=== PATIENT | female | born 1955 | race Caucasian/White ===

== ENCOUNTER 2018-01-10 21:17 | Emergency (ER) | payer BC ==
[2018-01-10] MEDS ORDERED: MORPHINE SULFATE 4 MG/ML SYRINGE IVP STA ×2 (22:13→23:31)
[2018-01-10] MEDS ORDERED: ONDANSETRON 4 MG/2 ML VIAL IVP STA (22:14)
[2018-01-10 23:20] VITALS: BP 137/61; PULSE 65; RESP 20; TEMP 97.6
--- NOTE | 2018-01-10 23:50 | ED ---
Extremity Problem HPI - General Chief complaint: Extremity Problem,Nontraumatic Stated complaint: pain all over Time Seen by Provider: 01/10/18 22:02 Source: patient Mode of arrival: ambulatory Limitations: no limitations - History of Present Illness Initial comments: The sixth 2 years old female complaining about excruciating pain in the left leg , she had a history of disc disease she said she has some eye surgery scheduled and this is a radiculopathic pain he starts on the left lower back and radiates all the way to the lower extremity she has been dealing with this pain with the Percocets and the fentanyl patch today pain is unbearable she has a fentanyl patch and she been using Percocets she is requesting for pain meds. She denies any trauma any fall over the last 3 days she denies any bowel or bladder incontinence, degree of system is unremarkable - Related Data Home Medications Medication Instructions Recorded Confirmed Atorvastatin Calcium [Lipitor] 40 mg PO HS 10/24/17 01/10/18 Baclofen [Lioresal] 5 mg PO Q8H PRN 10/24/17 01/10/18 Estradiol [Estradiol 0.05 MG Patch] 1 patch TRANSDERM DIRECTED 10/24/1701/10 Famotidine [Pepcid] 40 mg PO BID 10/24/17 01/10/18 Furosemide [Lasix] 40 mg PO BID 10/24/17 01/10/18 Levothyroxine Sodium [Synthroid] 150 mcg PO DAILY 10/24/17 01/10/18 Lidocaine [Lidoderm 5% Patch] 1 patch TRANSDERM DAILY 10/24/17 01/10/18 Lisinopril [Prinivil] 5 mg PO DAILY 10/24/17 01/10/18 [place] Carbonate [Lithobid] 300 mg PO DAILY 10/24/17 01/10/18 Oxybutynin Xl [Ditropan Xl] 5 mg PO DAILY 10/24/17 01/10/18 Potassium Chloride [Klor-Con 10] 10 meq PO DAILY 10/24/17 01/10/18 QUEtiapine [SEROquel] 50 mg PO TID 10/24/17 01/10/18 Topiramate [Topamax] 25 mg PO TID 10/24/17 01/10/18 carBAMazepine [TEGretol] 200 mg PO TID 10/24/17 01/10/18 fentaNYL 25MCG/HR PATCH [Duragesic 1 patch TRANSDERM Q48H 10/24/17 01/10/18 25MCG/HR] metFORMIN HCL ER [Glucophage Xr] 500 mg PO BID 10/24/17 01/10/18 Gabapentin [Neurontin] 300 mg PO Q8HR 01/10/18 01/10/18 oxyCODONE-APAP 10-325MG [Percocet 1 tab PO Q8HR PRN 01/10/18 01/10/18 10-325 mg] Allergies Allergy/AdvReac Type Severity Reaction Status Date / Time iodine Allergy Unknown Verified 01/10/18 22:18 Tetracyclic Antidepressants Allergy Anaphylaxis Verified 01/10/18 22:18 aspirin AdvReac Nausea & Verified 01/10/18 22:18 Vomiting ibuprofen AdvReac Nausea & Verified 01/10/18 22:18 Vomiting & Diarrhea naproxen AdvReac Nausea & Verified 01/10/18 22:18 Vomiting & Diarrhea Review of Systems ROS Statement: Those systems with pertinent positive or pertinent negative responses have been documented in the HPI. ROS Other: All systems not noted in ROS Statement are negative. Past Medical History Past Medical History: CVA/TIA, Diabetes Mellitus, Hypertension, Thyroid Disorder Additional Past Medical History / Comment(s): back pain History of Any Multi-Drug Resistant Organisms: None Reported Past Surgical History: Appendectomy, Back Surgery, Hysterectomy, Joint Replacement Additional Past Surgical History / Comment(s): Retina , Past Psychological History: No Psychological Hx Reported Smoking Status: Former smoker Past Alcohol Use History: None Reported Past Drug Use History: None Reported General Exam - General Exam Comments Initial Comments: General: The patient is awake and alert, in severe distress leg pain is 10 over 10 Skin: Skin is warm and dry and no rashes or lesions are noted. Eye: Pupils are equal, round and reactive to light, extra-ocular movements are intact; there is normal conjunctiva bilaterally. Ears, nose, mouth and throat: There are moist mucous membranes and no oral lesions. Neck: The neck is supple, there is no tenderness or JVD. Cardiovascular: There is a regular rate and rhythm. No murmur, rub or gallop is appreciated. Respiratory: To auscultation bilateral, no wheezing no rhonchi no distress respiratory allred noticed Gastrointestinal: Soft, non-distended, non-tender abdomen without masses or organomegaly noted. There is no rebound or guarding present. Bowel sounds are unremarkable. Back: There is no tenderness to palpation in the midline. There is no obvious deformity. Musculoskeletal: no Focal pain over the lower lumbar spine , left straight leg raise is positive, deep tendon reflexes are within normal range no neurovascular compromise noticed on the left leg she was bit tender over the left calf area Neurological: CN II-XII intact, Cranial nerves III through XII are intact. There are no obvious motor or sensory deficits. Coordination appears grossly intact. Speech is normal. Psychiatric: Cooperative, appropriate mood & affect, normal judgment. Limitations: no limitations Course Vital Signs 01/10/18 01/10/18 21:51 23:20 Temperature 97.5 F L 97.6 F Pulse Rate 76 65 Respiratory 18 20 Rate Blood Pressure 127/57 137/61 O2 Sat by Pulse 97 97 Oximetry is with her and he is a bicycle taxi driver, she was giving morphine 4 mg IV Times and that took the edge off she will continue at home her Percocet and her fentanyl and she will follow with her primary care physician and our spine surgeon which she is scheduled for surgery in the future him a d-dimer is unremarkable that rules out any DVT the left leg, at term 11:48 PM she feels better and she wants to go home Medical Decision Making - Lab Data Lab Results 01/10/18 Range/Units 23:00 D-Dimer 0.56 (<0.60) mg/L FEU Disposition Clinical Impression: Radiculopathy Disposition: HOME SELF-CARE Condition: Good Instructions: Back Pain (ED) Referrals: Carlos A oGmez MD [Primary Care Provider] - 1-2 days
== END 2018-01-10 23:52 | disposition home or self-care (01) ==
LOC: EC 21:17
DX: M54.16 Radiculopathy, lumbar region (principal); E11.9 Type 2 diabetes mellitus without complications; I10 Essential (primary) hypertension; E07.9 Disorder of thyroid, unspecified; Z86.73 Personal history of transient ischemic attack (TIA), and cerebral infarction without residual deficits; Z87.891 Personal history of nicotine dependence; Z79.84 Long term (current) use of oral hypoglycemic drugs; Z79.899 Other long term (current) drug therapy; Z88.6 Allergy status to analgesic agent; Z88.5 Allergy status to narcotic agent; Z88.8 Allergy status to other drugs, medicaments and biological substances; Z98.890 Other specified postprocedural states
CPT/HCPCS: 36415; 85379; 99283; 96374; 96375; 96376; J2270; J2405

== ENCOUNTER 2018-04-02 16:36 | Inpatient (IN) | payer BC, MEDICARE ==
--- NOTE | 2018-04-02 17:02 | ED ---
Chest Pain HPI - General Chief Complaint: Chest Pain Stated Complaint: Chest pain Time Seen by Provider: 04/02/18 16:52 Source: patient, family, RN notes reviewed Mode of arrival: ambulatory Limitations: no limitations - History of Present Illness Initial Comments: This is a 62-year-old female history of 2 mini strokes history of a lens removal and retina look #left no history of heart disease who states she had the onset over last couple days with some palpitations intermittently in her chest last about 15 minutes at the time associated with some nausea. No vomiting since her episodes of including just prior to admission here. Just has some left arm numbness associated with this and some chin numbness. Also states she was bit by a tick 2 days ago on her left wrist which she pulled off and threw onto ground. She does not know what type it was. No fevers chills nausea vomiting sweats. MD Complaint: chest pain, other - Related Data Home Medications Medication Instructions Recorded Confirmed Atorvastatin Calcium [Lipitor] 40 mg PO HS 10/24/17 01/10/18 Baclofen [Lioresal] 5 mg PO Q8H PRN 10/24/17 01/10/18 Estradiol [Estradiol 0.05 MG Patch] 1 patch TRANSDERM DIRECTED 10/24/1701/10 Famotidine [Pepcid] 40 mg PO BID 10/24/17 01/10/18 Furosemide [Lasix] 40 mg PO BID 10/24/17 01/10/18 Levothyroxine Sodium [Synthroid] 150 mcg PO DAILY 10/24/17 01/10/18 Lidocaine [Lidoderm 5% Patch] 1 patch TRANSDERM DAILY 10/24/17 01/10/18 Lisinopril [Prinivil] 5 mg PO DAILY 10/24/17 01/10/18 [place] Carbonate [Lithobid] 300 mg PO DAILY 10/24/17 01/10/18 Oxybutynin Xl [Ditropan Xl] 5 mg PO DAILY 10/24/17 01/10/18 Potassium Chloride [Klor-Con 10] 10 meq PO DAILY 10/24/17 01/10/18 QUEtiapine [SEROquel] 50 mg PO TID 10/24/17 01/10/18 Topiramate [Topamax] 25 mg PO TID 10/24/17 01/10/18 carBAMazepine [TEGretol] 200 mg PO TID 10/24/17 01/10/18 fentaNYL 25MCG/HR PATCH [Duragesic 1 patch TRANSDERM Q48H 10/24/17 01/10/18 25MCG/HR] metFORMIN HCL ER [Glucophage Xr] 500 mg PO BID 10/24/17 01/10/18 Gabapentin [Neurontin] 300 mg PO Q8HR 01/10/18 01/10/18 oxyCODONE-APAP 10-325MG [Percocet 1 tab PO Q8HR PRN 01/10/18 01/10/18 10-325 mg] Allergies Allergy/AdvReac Type Severity Reaction Status Date / Time iodine Allergy Unknown Verified 04/02/18 16:40 Tetracyclic Antidepressants Allergy Anaphylaxis Verified 04/02/18 16:40 aspirin AdvReac Nausea & Verified 04/02/18 16:40 Vomiting ibuprofen AdvReac Nausea & Verified 04/02/18 16:40 Vomiting & Diarrhea naproxen AdvReac Nausea & Verified 04/02/18 16:40 Vomiting & Diarrhea Review of Systems ROS Statement: Those systems with pertinent positive or pertinent negative responses have been documented in the HPI. ROS Other: All systems not noted in ROS Statement are negative. EKG Findings - EKG Results: EKG: interpreted by [facility], sinus rhythm (EKG shows normal sinus rhythm of 60 DE interval 180 QRS duration 108 QT since QTC of 420/422 evidence of left axis deviation) Past Medical History Past Medical History: CVA/TIA, Diabetes Mellitus, Hypertension, Thyroid Disorder Additional Past Medical History / Comment(s): back pain History of Any Multi-Drug Resistant Organisms: None Reported Past Surgical History: Appendectomy, Back Surgery, Hysterectomy, Joint Replacement Additional Past Surgical History / Comment(s): Retina , Past Psychological History: No Psychological Hx Reported Smoking Status: Former smoker Past Alcohol Use History: None Reported Past Drug Use History: None Reported General Exam - General Exam Comments Initial Comments: This is a well-developed well-nourished awake alert oriented 3 female Limitations: no limitations General appearance: alert, anxious Head exam: Present: atraumatic, normocephalic, normal inspection Eye exam: Present: other (The left eye is deviated to the left compared to the right also pupils was markedly dilated which is normal per family) ENT exam: Present: normal exam, mucous membranes moist Neck exam: Present: normal inspection, other. Absent: tenderness, meningismus, lymphadenopathy Respiratory exam: Present: normal lung sounds bilaterally. Absent: respiratory distress, wheezes, rales, rhonchi, stridor Cardiovascular Exam: Present: regular rate, normal rhythm, normal heart sounds. Absent: systolic murmur, diastolic murmur, rubs, gallop, clicks GI/Abdominal exam: Present: soft, normal bowel sounds. Absent: distended, tenderness, guarding, rebound, rigid, bruit, pulsatile mass, hernia Extremities exam: Present: normal inspection, full ROM, normal capillary refill. Absent: tenderness, pedal edema, joint swelling, calf tenderness Back exam: Present: normal inspection Neurological exam: Present: alert, oriented X3, CN II-XII intact Psychiatric exam: Present: normal affect, normal mood Skin exam: Present: warm, dry, intact, normal color. Absent: rash Course Vital Signs 04/02/18 04/02/18 04/02/18 16:38 18:15 18:56 Temperature 98.1 F Pulse Rate 66 57 L 60 Respiratory 20 18 18 Rate Blood Pressure 121/62 110/59 111/46 O2 Sat by Pulse 99 100 99 Oximetry 04/02/18 04/02/18 19:51 20:31 Temperature Pulse Rate 60 86 Respiratory 18 18 Rate Blood Pressure 123/70 110/51 O2 Sat by Pulse 100 99 Oximetry Chest Pain MDM - MDM I did review the imaging and report no acute findings. The patient did get some relief initially with a GI cocktail with then she started vomiting again. She still experiencing palpitations some atypical pain she will be admitted I did discuss the case with Dr. Roth. There does seem to be however a anxiety component to this presentation. Disposition Clinical Impression: Atypical chest pain, Palpitations Disposition: ADMITTED IP TO THIS [facility] Condition: Stable Referrals: Carlos A Gomez MD [Primary Care Provider] - 1-2 days
[2018-04-02 17:37] LABS: Basophils % (A) 1 %; Eosinophils # (A) 0.4 k/uL (0-0.7); Eosinophils % (A) 4 %; HCT 39.7 % (34.0-46.0); Lymphocytes # (A) 2.4 k/uL (1.0-4.8); Lymphocytes % (A) 30 %; MCHC 32.7 g/dL (31.0-37.0); MCV 91.8 fL (80.0-100.0); Mean Platelet Volume 6.5; Monocytes # (A) 0.5 k/uL (0-1.0); Monocytes % (A) 6 %; Neutrophils # (A) 4.7 k/uL (1.3-7.7); Neutrophils % (A) 57 %; Platelet Count 323 k/uL (150-450); RBC 4.32 m/uL (3.80-5.40); RDW 12.7 % (11.5-15.5); WBC 8.1 k/uL (3.8-10.6)
[2018-04-02 17:50] LABS: ALT 26 U/L (9-52); AST 24 U/L (14-36); Albumin 4.5 g/dL (3.5-5.0); Alkaline Phosphatase 110 U/L (38-126); Anion Gap 16 mmol/L; Blood Urea Nitrogen 19 mg/dL (7-17); Calcium 9.9 mg/dL (8.4-10.2); Carbon Dioxide 22 mmol/L (22-30); Chloride 105 mmol/L (98-107); Glucose 81 mg/dL (74-99); Magnesium 1.8 mg/dL (1.6-2.3); Potassium 4.3 mmol/L (3.5-5.1); Sodium 143 mmol/L (137-145); Total Bilirubin 0.3 mg/dL (0.2-1.3); Total Protein 7.3 g/dL (6.3-8.2)
[2018-04-02 17:53] LABS: Creatine Kinase 43 U/L (30-135)
[2018-04-02 18:06] LABS: Creatine Kinase MB 0.8 ng/mL (0.0-2.4); Troponin I <0.012 ng/mL (0.000-0.034)
--- NOTE | 2018-04-02 18:21 | XR ---
EXAMINATION TYPE: XR chest 2V DATE OF EXAM: 04/02/2018 COMPARISON: NONE HISTORY: Chest pain and shortness of breath TECHNIQUE: Frontal and lateral views of the chest are obtained. FINDINGS: There is no focal air space opacity, pleural effusion, or pneumothorax seen. The cardiac silhouette size is within normal limits. The osseous structures are intact. IMPRESSION: No acute cardiopulmonary process.
[2018-04-02 18:22] LABS: Partial Thromboplastin Time 23.3 sec (22.0-30.0); Prothrombin Time 9.9 sec (9.0-12.0)
[2018-04-02] MEDS ORDERED: FAMOTIDINE 20 MG/2 ML VIAL IV STA (18:49)
[2018-04-02] MEDS ORDERED: diphenhydrAMINE 50 MG/ML 1 ML VIAL IVP STA (18:49)
[2018-04-02] MEDS ORDERED: methylPREDNISolone SOD SUCCI 125 MG/2 ML VIAL IV STA (18:49)
[2018-04-02] MEDS ORDERED: MAG HYDROX/AL HYDROX/SIMETH 30 ML, HYOSCYAMINE ELIXIR 10 ML, CIMETIDINE HCL 300 MG PO STA ×3 (19:48)
--- NOTE | 2018-04-02 19:51 | CT ---
EXAMINATION TYPE: CT angio chest DATE OF EXAM: 04/02/2018 COMPARISON: None HISTORY: Patient complains of palpitations and tachycardia. CT DLP: 212 mGycm. Automated Exposure Control for Dose Reduction was Utilized. CONTRAST: CTA scan of the thorax is performed with IV Contrast, patient injected with 100 mL of Isovue 370, pul monary embolism protocol. MIP Images are created on CT scanner and reviewed. FINDINGS: LUNGS: Moderate underlying emphysematous change most prominent lung apices is present. There is super ior left lower lobe linear scarring and/or atelectasis. There is no suspicious consolidation or groun dglass opacity. No pleural effusion or pneumothorax is seen bilaterally. MEDIASTINUM: There is satisfactory enhancement of the pulmonary artery and its branches, there is no CT evidence for pulmonary embolism. There are no greater than 1 cm hilar or mediastinal lymph nodes. No cardiomegaly or pericardial effusion is seen. Coronary artery calcification is present which is noted marker for coronary artery disease. Somewhat small size thyroid gland is seen, correlate clini karolina. OTHER: Slight nodular thickening left adrenal gland axial image 140 is partially imaged. IMPRESSION: 1. No CT evidence for acute pulmonary embolism. 2. Moderate emphysematous change with superior left lower lobe linear scarring and atelectasis. No hernandez spicious acute pulmonary process clearly seen.
[2018-04-02] MEDS ORDERED: ONDANSETRON 4 MG/2 ML VIAL IVP STA (20:28)
[2018-04-02] MEDS ORDERED: HEPARIN SODIUM,PORCINE 5,000 UNIT/ML 1 ML VIAL IV ONE (21:19)
[2018-04-02] MEDS ORDERED: NITROGLYCERIN SL TABS 0.4 MG TAB SUBLINGUAL PRN (21:19)
[2018-04-02] MEDS ORDERED: HEPARIN SODIUM,PORCINE/D5W PMX 25,000 UNIT in DEXTROSE/WATER 1 500ML.BAG IV SCH (21:30)
[2018-04-02] MEDS: SODIUM CHLORIDE 0.9% 1,000 ML IV SCH (21:47)
[2018-04-02] MEDS: ESTRADIOL TRANSDERM SCH (22:08)
[2018-04-02] MEDS: BACLOFEN 10 MG TAB PO PRN (22:18)
[2018-04-02] MEDS: TOPIRAMATE 25 MG TAB PO SCH (22:19)
[2018-04-02] MEDS: oxyCODONE-APAP 10-325MG 1 EACH TAB PO PRN (22:19)
[2018-04-02] MEDS: carBAMazepine 200 MG TAB PO SCH (22:19)
[2018-04-02] MEDS: QUEtiapine 50 MG TAB PO SCH (22:19)
[2018-04-02 22:22] LABS: Carbamazepine (Tegretol) 7.4 ug/mL; Lithium 0.5 mmol/L
[2018-04-02 22:49] VITALS: BMI 27.1
[2018-04-02] MEDS: GABAPENTIN 300 MG CAP PO SCH (23:06)
[2018-04-02] MEDS: NITROGLYCERIN OINT 1 INCH/GM PACKET TOPICAL SCH (23:06)
[2018-04-03 00:33] LABS: Creatine Kinase 31 U/L (30-135)
[2018-04-03 00:45] LABS: Creatine Kinase MB 0.7 ng/mL (0.0-2.4); Troponin I <0.012 ng/mL (0.000-0.034)
[2018-04-03] MEDS: NITROGLYCERIN OINT 1 INCH/GM PACKET TOPICAL SCH ×4 (03:21→22:49)
[2018-04-03] MEDS: oxyCODONE-APAP 10-325MG 1 EACH TAB PO PRN ×3 (05:29→23:19)
[2018-04-03 06:03] LABS: Glucose,Whole Blood 122 mg/dL (75-99)
[2018-04-03] MEDS: INSULIN ASPART 100 UNIT/ML 1 ML 10 ML VIAL SQ SCH ×4 (06:06→21:23)
[2018-04-03] MEDS: BACLOFEN 10 MG TAB PO PRN ×3 (06:09→23:19)
[2018-04-03] MEDS: metFORMIN 500 MG TAB PO SCH ×2 (06:09→17:33)
[2018-04-03 06:30] LABS: Creatine Kinase 26 U/L (30-135)
[2018-04-03] MEDS ORDERED: LEVOTHYROXINE 75 MCG TAB PO SCH (06:30)
[2018-04-03 06:36] LABS: Cholesterol 149 mg/dL (<200); HDL Cholesterol 56 mg/dL (40-60); LDL Cholesterol,Calculated 69 mg/dL (0-99); Triglycerides 120 mg/dL (<150)
[2018-04-03 06:41] LABS: Creatine Kinase MB 0.5 ng/mL (0.0-2.4); Troponin I <0.012 ng/mL (0.000-0.034)
[2018-04-03] MEDS ORDERED: HEPARIN SODIUM,PORCINE 5,000 UNIT/ML 1 ML VIAL IV PRN (07:03)
[2018-04-03] MEDS: QUEtiapine 50 MG TAB PO SCH ×3 (08:14→21:30)
[2018-04-03] MEDS: GABAPENTIN 300 MG CAP PO SCH ×3 (08:14→23:19)
[2018-04-03] MEDS: ASPIRIN 325 MG TAB PO SCH (08:14)
[2018-04-03] MEDS: FAMOTIDINE 20 MG TAB PO SCH ×2 (08:14→21:30)
[2018-04-03] MEDS: POTASSIUM CHLORIDE ER 10 MEQ TAB.ER.PRT PO SCH (08:14)
[2018-04-03] MEDS: LITHIUM CARBONATE 300 MG CAP PO SCH (08:14)
[2018-04-03] MEDS: carBAMazepine 200 MG TAB PO SCH ×3 (08:14→21:29)
[2018-04-03] MEDS: TOPIRAMATE 25 MG TAB PO SCH ×3 (08:14→21:30)
[2018-04-03] MEDS: LISINOPRIL 5 MG TAB PO SCH (08:14)
[2018-04-03] MEDS: OXYBUTYNIN XL 5 MG TAB.ER.24 PO SCH (08:14)
[2018-04-03] MEDS: LIDOCAINE 5% PATCH TOPICAL SCH (08:19)
[2018-04-03] MEDS ORDERED: FUROSEMIDE 40 MG TAB PO SCH (09:00)
[2018-04-03 11:57] LABS: Glucose,Whole Blood 88 mg/dL (75-99)
[2018-04-03] MEDS: CLOPIDOGREL 75 MG TAB PO SCH (15:39)
--- NOTE | 2018-04-03 16:26 | HP ---
HISTORY AND PHYSICAL DATE OF ADMISSION: 04/02/18 PRESENTING COMPLAINT: Heart racing. HISTORY OF PRESENTING COMPLAINT: This is a pleasant 62-year-old patient of Dr. Gomez. Chronic stable medical conditions include diabetes, hypertension, hypothyroid, bipolar disorder. The patient has had previous stroke affecting her vision with no . The patient presents with a sensation as of what is running on the lower part of the sternum she describes and the sternum is pounding. This has been coming on for at least 24 hours. The patient did feel dizzy, lightheaded, break out in sweat, short of breath and decided to come in. Telemetry has been unremarkable except for some PVCs. The patient is on Lasix 40 mg twice a day with no obvious evidence of congestive heart failure. The patient is rather anxious during history giving and called the nurse several times last night to check out the lower part of the sternum, which she thought was vibrating. The patient is otherwise rather active with no chest pain related to exertion. The patient's TSH has come back to be a bit low. The patient is on Synthroid. REVIEW OF SYSTEMS: CONSTITUTIONAL: Anxious. HEENT: None. RESPIRATORY: None. CARDIOVASCULAR: As above. GASTROINTESTINAL: None. GENITOURINARY: None. MUSCULOSKELETAL: None. DERMATOLOGICAL, HEMATOLOGIC, LYMPHATICS: None. PSYCHIATRY: Anxious. NEUROLOGICAL: None. PAST HISTORY: Stroke affecting of vision, diabetes, hypertension, hypothyroid, bipolar disorder. PAST SURGICAL HISTORY: Appendectomy, back surgery, hysterectomy, right hip replacement, back surgery 03/18/18. PAST PSYCH HISTORY: Bipolar. SOCIAL HISTORY: . Smoked for about 30 years, stopped 20 years ago. No alcohol. FAMILY HISTORY: Myocardial infarction, brain aneurysm. HOME MEDICATIONS: Percocet 10 1 tablet q.8h p.r.n., Glucophage XR 500 mg b.i.d., Duragesic 25 mcg patch every 48 hours, Tegretol 200 mg p.o. t.i.d., Topamax 25 mg p.o. t.i.d., Seroquel 50 mg p.o. t.i.d., potassium 10 mEq a day, Ditropan XL 5 mg a day, [place] [employer] 300 mg p.o. daily, Prinivil 5 mg p.o. daily, Synthroid 150 mcg p.o. daily, Neurontin 300 mg p.o. q.8, Lasix 20 mg p.o. b.i.d., Pepcid 20 mg b.i.d., estradiol 0.05 mcg mg patch, Plavix 75 mg daily, baclofen 5 mg q.8h p.r.n., Lipitor 20 mg q.h.s. ALLERGIES: To IODINE, TETRACYCLINE, ASPIRIN, IBUPROFEN, NAPROXEN. A lot of these are side effects. PHYSICAL EXAMINATION: Temperature 98.1, pulse 76, respiration 20, blood pressure 120/62, pulse ox 99% on room air. GENERAL APPEARANCE: Average built, sitting up, very anxious and fidgety. EYES: Pupils equal. Conjunctivae normal. HEENT: External appearance nose and ears normal. Oral cavity normal. NECK: JVD not raised. Mass not palpable. RESPIRATORY: Effort normal, lungs fair entry. CARDIOVASCULAR: First and second sounds, no edema. ABDOMEN: Soft, nontender. Liver and spleen not palpable. LYMPHATIC: No lymph node palpable in neck or axillae. PSYCHIATRY: Alert and oriented x3, very anxious appearing. NEUROLOGICAL: Pupils equal. Cranial nerves grossly intact. Power and sensation grossly intact. INVESTIGATIONS: White count 8.1, hemoglobin 13, potassium 4.3, BUN 19, creatinine 0.72. Troponin x3 negative. TSH less than 0.015 and free T4 1.70. [employer] [place] [employer] 0.5. EKG normal sinus rhythm. Chest CTA: changes. ASSESSMENT: 1. This patient presented with episodes of fluttering sensation in the chest, heart pounding, dizzy, short of breath, lightheaded. The patient does have some PVCs that could contribute to some of her symptoms, also patient seems to be over replaced on Synthroid given the low TSH, though free T4 is normal limits. May help scaling back a bit on the dose of the same. The patient troponins are negative and has no alarming EKG findings. 2. Diabetes mellitus type 2 on oral hypoglycemic. 3. Essential hypertension. 4. Hypothyroid with some over replacement. 5. Bipolar disorder. PLAN: Will cut back on the dose of Synthroid to 125, skipping the dose of tomorrow as this is a long-acting drug. Also since the blood pressure is tending to run a bit on the lower side, will DC the EVIN inhibitor right now put on a very small dose of beta amador to control the symptoms. Cardiology in the meantime was connected. The patient also may be on the dry side. She is on 40 mg twice a day of Lasix, unclear. I will cut back on Lasix to once a day. In the meantime, we will do a 2D echo to assess LV function. Care was discussed with the patient. Questions were answered. Cardiology was consulted. Copy to Dr. Gomez. LAKHWINDER / JOSE MANUEL: [phone] /
[2018-04-03 16:55] LABS: Glucose,Whole Blood 104 mg/dL (75-99)
[2018-04-03 20:55] LABS: Glucose,Whole Blood 98 mg/dL (75-99)
[2018-04-03] MEDS: ESTRADIOL TRANSDERM SCH (21:26)
[2018-04-03] MEDS: METOPROLOL TARTRATE 12.5 MG TAB PO SCH (21:30)
[2018-04-03] MEDS: SODIUM CHLORIDE 0.9% 1,000 ML IV SCH (21:30)
[2018-04-03] MEDS: ATORVASTATIN 40 MG TAB PO SCH (21:30)
[2018-04-04] MEDS: NITROGLYCERIN OINT 1 INCH/GM PACKET TOPICAL SCH ×2 (03:20→10:56)
[2018-04-04 06:07] LABS: Glucose,Whole Blood 91 mg/dL (75-99)
[2018-04-04] MEDS: INSULIN ASPART 100 UNIT/ML 1 ML 10 ML VIAL SQ SCH ×4 (06:34→21:11)
[2018-04-04] MEDS: metFORMIN 500 MG TAB PO SCH ×2 (06:55→17:06)
[2018-04-04] MEDS: oxyCODONE-APAP 10-325MG 1 EACH TAB PO PRN ×3 (06:56→23:31)
[2018-04-04] MEDS: LIDOCAINE 5% PATCH TOPICAL SCH (07:35)
[2018-04-04] MEDS: METOPROLOL TARTRATE 12.5 MG TAB PO SCH ×2 (07:42→21:13)
[2018-04-04] MEDS: carBAMazepine 200 MG TAB PO SCH ×3 (07:42→21:13)
[2018-04-04] MEDS: ASPIRIN 325 MG TAB PO SCH (07:42)
[2018-04-04] MEDS: GABAPENTIN 300 MG CAP PO SCH ×3 (07:42→23:31)
[2018-04-04] MEDS: POTASSIUM CHLORIDE ER 10 MEQ TAB.ER.PRT PO SCH (07:42)
[2018-04-04] MEDS: QUEtiapine 50 MG TAB PO SCH ×3 (07:42→21:13)
[2018-04-04] MEDS: LITHIUM CARBONATE 300 MG CAP PO SCH (07:42)
[2018-04-04] MEDS: CLOPIDOGREL 75 MG TAB PO SCH (07:42)
[2018-04-04] MEDS: OXYBUTYNIN XL 5 MG TAB.ER.24 PO SCH (07:42)
[2018-04-04] MEDS: LISINOPRIL 5 MG TAB PO SCH (07:42)
[2018-04-04] MEDS: TOPIRAMATE 25 MG TAB PO SCH ×3 (07:42→21:13)
[2018-04-04] MEDS: FAMOTIDINE 20 MG TAB PO SCH ×2 (07:43→21:13)
[2018-04-04] MEDS ORDERED: FUROSEMIDE 40 MG TAB PO SCH (09:00)
[2018-04-04 11:35] LABS: Glucose,Whole Blood 121 mg/dL (75-99)
--- NOTE | 2018-04-04 12:20 | ECHOF ---
Referral Reason:assess lv fn MEASUREMENTS -------- HEIGHT: 170.2 cm WEIGHT: 78.5 kg BP: 126/58 RVIDd: 2.7 cm (< 3.3) IVSd: 1.2 cm (0.6 - 1.1) LVIDd: 4.1 cm (3.9 - 5.3) LVPWd: 1.1 cm (0.6 - 1.1) IVSs: 1.3 cm LVIDs: 2.7 cm LVPWs: 1.6 cm LAESV Index (A-L): 18.61 ml/m Ao Diam: 2.6 cm (2.0 - 3.7) AV Cusp: 1.7 cm (1.5 - 2.6) LA Diam: 2.9 cm (2.7 - 3.8) MV E Lewis: 0.74 m/s MV DecT: 246 ms MV A Lewis: 0.73 m/s MV E/A Ratio: 1.02 RAP: 5.00 mmHg RVSP: 46.91 mmHg FINDINGS -------- Sinus rhythm. This was a technically adequate study. The left ventricular size is normal. There is borderline concentric left ventricular hypertrophy. Overall left ventricular systolic function is normal with, an EF between 55 - 60 %. The right ventricle is normal in size and function. Normal LA size by volume 22+/-6 ml/m2. The right atrium is normal in size. The aortic valve is trileaflet, and appears structurally normal. No aortic stenosis or regurgitation. The mitral valve is normal. Mild mitral regurgitation is present. Mild tricuspid regurgitation present. There is mild pulmonary hypertension. The right ventricular systolic pressure, as measured by Doppler, is 46.91mmHg. The pulmonic valve was not well visualized. There is no pulmonic regurgitation present. The aortic root size is normal. Normal inferior vena cava with normal inspiratory collapse consistent with estimated right atrial pre ssure of 5 mmHg. There is no pericardial effusion. CONCLUSIONS -------- 1. Sinus rhythm. 2. This was a technically adequate study. 3. The left ventricular size is normal. 4. There is borderline concentric left ventricular hypertrophy. 5. Overall left ventricular systolic function is normal with, an EF between 55 - 60 %. 6. Normal LA size by volume 22+/-6 ml/m2. 7. The aortic valve is trileaflet, and appears structurally normal. No aortic stenosis or regurgitati on. 8. Mild mitral regurgitation is present. 9. Mild tricuspid regurgitation present. 10. There is mild pulmonary hypertension. 11. There is no pulmonic regurgitation present. 12. The aortic root size is normal. 13. There is no pericardial effusion. [employer]: Ry Winchester RDCS
--- NOTE | 2018-04-04 13:18 | P.CRDCN ---
History of Present Illness Consult date: 04/04/18 Requesting physician: Damaso Roth Consult reason: chest pain Chief complaint: Chest pressure, fluttering, lightheadedness History of present illness: This is a pleasant 62-year-old female with history of hypertension, diabetes, hyperlipidemia, history of detached retina in the left eye, hypothyroidism, prior TIA, she quit smoking approximately 20 years ago, who presents to the hospital with symptoms that she describes as pressure in the center of her chest with associated fluttering feeling. She states that the symptoms come and go, but when they come on she becomes quite short of breath, at times the discomfort goes up into her jaw, down her left arm, she breaks out into a sweat and becomes quite nauseous. Patient also states that recently she would be outstanding in her yard and feel lightheaded like she was going to fall forward. She follows with a stenotypist at at [facility]. Patient is quite anxious about these symptoms, states that when she is having them she feels really awful. Patient states that she recently attended a wedding out of town on Tuesday, prior to the wedding she had significant swelling in her right leg which has since resolved, these symptoms of heart fluttering and chest pressure started at the wedding, however she did not want to go to a hospital in that area, and therefore presented here for this reason. EKG on presentation here showed a normal sinus rhythm with no acute changes. Subsequent EKG showed normal sinus rhythm with no acute changes. No arrhythmias have been noted on the monitor strips. Blood pressure on arrival 120/60 with a heart rate in the 60s, 99% on room air. Blood pressure at 11:00 this morning 88/48, heart rate in the 50s, 98% on room air. CBC is normal. D- dimer 0.69. Sodium 143, potassium 4.3, BUN 19, creatinine 0.7. Troponins negative 3. BNP level 194. TSH 0.0153, T4 1 0.7 . According to the patient, she did have an episode of pressure with associated fluttering in the chest through the night last night, no evidence of any arrhythmias on the monitor. Echocardiogram with Doppler study was performed which revealed an ejection fraction of 55-60%. Past Medical History Past Medical History: CVA/TIA, Diabetes Mellitus, Hypertension, Thyroid Disorder Additional Past Medical History / Comment(s): CVA x2, back pain History of Any Multi-Drug Resistant Organisms: None Reported Past Surgical History: Appendectomy, Back Surgery, Hysterectomy, Joint Replacement Additional Past Surgical History / Comment(s): right hip replacement, Retina off left eye, back surgery 03/18/18 Past Anesthesia/Blood Transfusion Reactions: No Reported Reaction Past Psychological History: Bipolar Smoking Status: Former smoker Past Alcohol Use History: None Reported Past Drug Use History: None Reported - Past Family History Mother Family Medical History: Myocardial Infarction ([place]) Father Additional Family Medical History / Comment(s): brain aneurysm, at age 60 Medications and Allergies Home Medications Medication Instructions Recorded Confirmed Type Baclofen [Lioresal] 5 mg PO Q8H PRN 10/24/17 04/03/18 History Estradiol [Estradiol 0.05 MG Patch] 1 patch TRANSDERM DIRECTED 10/24/1704/03 History Famotidine [Pepcid] 20 mg PO BID 10/24/17 04/03/18 History Furosemide [Lasix] 20 mg PO BID 10/24/17 04/03/18 History Levothyroxine Sodium [Synthroid] 150 mcg PO DAILY 10/24/17 04/03/18 History Lisinopril [Prinivil] 5 mg PO DAILY 10/24/17 04/03/18 History [place]over Carbonate [Lithobid] 300 mg PO DAILY 10/24/17 04/03/18 History Oxybutynin Xl [Ditropan Xl] 5 mg PO DAILY 10/24/17 04/03/18 History Potassium Chloride [Klor-Con 10] 10 meq PO DAILY 10/24/17 04/03/18 History QUEtiapine [SEROquel] 50 mg PO TID 10/24/17 04/03/18 History Topiramate [Topamax] 25 mg PO TID 10/24/17 04/03/18 History carBAMazepine [TEGretol] 200 mg PO TID 10/24/17 04/03/18 History fentaNYL 25MCG/HR PATCH [Duragesic 1 patch TRANSDERM Q48H 10/24/17 04/03/18 History 25MCG/HR] metFORMIN HCL ER [Glucophage Xr] 500 mg PO BID 10/24/17 04/03/18 History Gabapentin [Neurontin] 300 mg PO Q8HR 01/10/18 04/03/18 History oxyCODONE-APAP 10-325MG [Percocet 1 tab PO Q8HR PRN 01/10/18 04/03/18 History 10-325 mg] Atorvastatin [Lipitor] 20 mg PO HS 04/03/18 04/03/18 History Clopidogrel [Plavix] 75 mg PO DAILY 04/03/18 04/03/18 History Allergies Allergy/AdvReac Type Severity Reaction Status Date / Time iodine Allergy Unknown Verified 04/02/18 22:30 Tetracyclic Antidepressants Allergy Anaphylaxis Verified 04/02/18 22:30 aspirin AdvReac Nausea & Verified 04/02/18 22:30 Vomiting ibuprofen AdvReac Nausea & Verified 04/02/18 22:30 Vomiting & Diarrhea naproxen AdvReac Nausea & Verified 04/02/18 22:30 Vomiting & Diarrhea Physical Exam Vitals: Vital Signs Temp Pulse Resp BP Pulse Ox 04/04/18 11:05 96.6 F L 57 L 18 88/49 98 04/04/18 08:00 96.4 F L 67 18 121/78 98 04/04/18 04:00 53 L 17 102/59 95 04/04/18 00:00 97.1 F L 60 17 104/56 96 04/03/18 20:00 97.3 F L 65 16 108/70 97 04/03/18 15:26 96.9 F L 72 16 114/64 98 Intake and Output 04/03/18 04/04/18 04/04/18 22:59 06:59 14:59 Intake Total 120 240 Balance 120 240 Intake: IV 0 Sodium Chloride 0.9% 1, 0 000 ml @ 20 mls/hr IV . Q24H [facility] Rx#:[id number] Oral 120 240 Other: Voiding Method Toilet Toilet # Voids 1 1 Weight 78.4 kg PHYSICAL EXAMINATION: GENERAL: This is a 62-year-old female in no apparent distress at the time of my examination. HEENT: Head is atraumatic, normocephalic. Pupils equal, round. Left eyelid drooping, loss of vision in left eye Sclera anicteric. Conjunctiva are clear. Mucous membranes of the mouth are moist. Neck is supple. There is no elevated jugular venous pressure. No carotid bruit is heard. HEART EXAMINATION: Heart S1, S2 normal. No murmur or gallop heard. CHEST EXAMINATION: Lungs are clear to auscultation and precussion. No chest wall tenderness is noted on palpation or with deep breathing. ABDOMEN: Soft, nontender. Bowel sounds are heard. No organomegaly noted. EXTREMITIES: 2+ peripheral pulses with no evidence of peripheral edema and no calf tenderness noted. NEUROLOGIC patient is awake, alert and oriented -3. . Results 04/02/18 17:28 04/02/18 17:28 Coagulation 04/03/18 Range/Units 13:57 APTT 50.7 H (22.0-30.0) sec Current Medications Generic Name Dose Route Start Last Admin Trade Name Freq PRN Reason Stop Dose Admin Aspirin 325 mg 04/03/18 09:00 04/04/18 07:42 Aspirin PO 325 mg DAILY [facility] Administration Atorvastatin Calcium 40 mg 04/03/18 21:00 04/03/18 21:30 Lipitor PO 40 mg HS [facility] Administration Baclofen 5 mg 04/02/18 21:22 04/03/18 23:19 Lioresal PO 5 mg Q8H PRN Administration Muscle Spasm Carbamazepine 200 mg 04/02/18 22:00 04/04/18 07:42 Tegretol PO 200 mg TID [facility] Administration Clopidogrel Bisulfate 75 mg 04/03/18 12:00 04/04/18 07:42 Plavix PO 75 mg DAILY [facility] Administration Famotidine 40 mg 04/03/18 09:00 04/04/18 07:43 Pepcid PO 40 mg BID [facility] Administration Fentanyl 1 patch 04/02/18 22:00 04/02/18 22:18 Duragesic 25mcg/Hr Patch TRANSDERM Not Given Q48H [facility] Furosemide 40 mg 04/04/18 09:00 04/04/18 07:42 Lasix PO 40 mg DAILY [facility] Administration Gabapentin 300 mg 04/03/18 00:00 04/04/18 07:42 Neurontin PO 300 mg Q8HR [facility] Administration Sodium Chloride 1,000 mls @ 20 mls/hr 04/02/18 21:30 04/03/18 21:30 Saline 0.9% IV Not Given .Q24H [facility] Insulin Aspart 0 unit 04/03/18 07:30 04/04/18 11:45 Novolog SQ Not Given ACHS [facility] Protocol Levothyroxine Sodium 125 mcg 04/05/18 06:30 Synthroid PO DAILY@0630 [facility] Lidocaine 1 patch 04/03/18 09:00 04/04/18 07:35 Lidoderm TOPICAL Not Given DAILY [facility] Lisinopril 5 mg 04/03/18 09:00 04/04/18 07:42 Zestril PO 5 mg DAILY [facility] Administration [place] Carbonate 300 mg 04/03/18 09:00 04/04/18 07:42 [place] Carbonate PO 300 mg DAILY [facility] Administration Metformin HCl 500 mg 04/03/18 07:30 04/04/18 06:55 Glucophage PO 500 mg BID-W/MEALS [facility] Administration Metoprolol Tartrate 12.5 mg 04/03/18 21:00 04/04/18 07:42 Lopressor PO 12.5 mg BID [facility] Administration Nitroglycerin 0.4 mg 04/02/18 21:19 Nitrostat SUBLINGUAL Q5M PRN Chest Pain Non-Formulary Medication 1 patch 04/02/18 21:30 04/03/18 21:26 Estradiol [Estradiol 0.05 Mg Patch] TRANSDERM Not Given DIRECTED [facility] Oxybutynin Chloride 5 mg 04/03/18 09:00 04/04/18 07:42 Ditropan Xl PO 5 mg DAILY [facility] Administration Oxycodone/Acetaminophen 1 each 04/02/18 21:22 04/04/18 06:56 Percocet 10-325 PO 1 each Q8HR PRN Administration Pain Potassium Chloride 10 meq 04/03/18 09:00 04/04/18 07:42 K-Dur 10 PO 10 meq DAILY [facility] Administration Quetiapine Fumarate 50 mg 04/02/18 22:00 04/04/18 07:42 Seroquel PO 50 mg TID [facility] Administration Topiramate 25 mg 04/02/18 22:00 04/04/18 07:42 Topamax PO 25 mg TID [facility] Administration Intake and Output 04/03/18 04/04/18 04/04/18 22:59 06:59 14:59 Intake Total 120 240 Balance 120 240 Intake: IV 0 Sodium Chloride 0.9% 1, 0 000 ml @ 20 mls/hr IV . Q24H [facility] Rx#:[id number] Oral 120 240 Other: Voiding Method Toilet Toilet # Voids 1 1 Weight 78.4 kg 04/02/18 17:28 04/02/18 17:28 EKG Interpretations (text) EKG shows normal sinus rhythm with no acute changes. Assessment and Plan Plan: Assessment and plan #1 Symptoms of chest heaviness with associated fluttering in the chest, diaphoresis, shortness of breath, nausea. EKG shows normal sinus rhythm. Troponins negative 3. #2 diabetes #3 hypertension #4 hypothyroidism, on Synthroid, TSH 0.015, free T4 1 0.7. # 5 history of TIA #6 history of left retinal detachment #7 symptoms of lightheadedness and near syncope with evidence of hypotension Plan An echocardiogram with Doppler study was performed which revealed an ejection fraction of 55-60%. We will obtain orthostatic blood pressure and heart rate every shift. No arrhythmias have been noted on the monitor. Consider stress testing. Further recommendations to follow. DNP note has been reviewed, I agree with a documented findings and plan of care. Patient was seen and examined.
[2018-04-04] MEDS: BACLOFEN 10 MG TAB PO PRN ×2 (15:00→23:31)
[2018-04-04 16:29] LABS: Glucose,Whole Blood 92 mg/dL (75-99)
--- NOTE | 2018-04-04 16:39 | PN ---
PROGRESS NOTE DATE OF SERVICE: 04/04/18 PRESENTING COMPLAINT: Heart racing. INTERVAL HISTORY: This patient presented with heart racing, was found to be a bit hyperthyroid. Dose of Synthroid was cut back. Also the patient's diuretics were held. 2D echo showing preserved LV function. The patient appears to be more relaxed today. Cardiology is considering a stress test. REVIEW OF SYSTEMS: Done for constitutional, cardiovascular, GI, pulmonary; relevant findings as above. CURRENT MEDICATIONS: Reviewed. EXAMINATION: On examination, temperature 96.6, pulse 67, respiratory 18, blood pressure 80/49, pulse ox 98% on room air. GENERAL APPEARANCE: Sitting up, anxious. EYES: Pupils equal. Conjunctivae normal. HEENT: External appearance of nose and ears normal. Oral cavity normal. NECK: JVD not raised. Mass not palpable. RESPIRATORY: Effort normal, lungs are fair. CARDIOVASCULAR: First and second sounds, no edema. ABDOMEN: Soft, nontender. Liver and spleen not palpable. PSYCHIATRY: Alert and oriented x3. Anxious-appearing. INVESTIGATIONS: 2D echo shows preserved LV function. The patient's Accu-Cheks are noted. ASSESSMENT: 1. The patient presents with fluttering sensation in the chest, could be from PVCs and some over replacement with Synthroid. 2. Hyperthyroidism with over replacement of dose of Synthroid that has been scaled back. 3. Hypotension probably from patient being on diuretics. Patient's EF is preserved. 4. Diabetes mellitus type 2 on oral hypoglycemic. 5. Bipolar disorder. PLAN: Will discontinue patient's Lasix, will get some fluids overnight. Cardiology is deciding about a stress test. MMODL / IJN: [id number] /
[2018-04-04] MEDS: LACTATED RINGERS 1,000 ML IV SCH ×2 (17:06→23:37)
[2018-04-04 20:55] LABS: Glucose,Whole Blood 116 mg/dL (75-99)
[2018-04-04] MEDS: ATORVASTATIN 40 MG TAB PO SCH (21:13)
[2018-04-04] MEDS: SODIUM CHLORIDE 0.9% 1,000 ML IV SCH (21:14)
[2018-04-05 06:29] LABS: Glucose,Whole Blood 99 mg/dL (75-99)
[2018-04-05] MEDS: INSULIN ASPART 100 UNIT/ML 1 ML 10 ML VIAL SQ SCH ×4 (06:29→21:16)
[2018-04-05] MEDS: ESTRADIOL TRANSDERM SCH ×2 (06:38→22:20)
[2018-04-05] MEDS: LEVOTHYROXINE 125 MCG TAB PO SCH (06:39)
[2018-04-05 07:19] LABS: Anion Gap 17 mmol/L; Blood Urea Nitrogen 22 mg/dL (7-17); Calcium 10.1 mg/dL (8.4-10.2); Carbon Dioxide 20 mmol/L (22-30); Chloride 105 mmol/L (98-107); Glucose 93 mg/dL (74-99); Magnesium 1.9 mg/dL (1.6-2.3); Potassium 4.7 mmol/L (3.5-5.1); Sodium 142 mmol/L (137-145)
[2018-04-05] MEDS ORDERED: AMINOPHYLLINE 500 MG/20 ML VIAL IV PRN (08:26)
[2018-04-05] MEDS ORDERED: REGADENOSON 0.4 MG/5 ML SYRINGE IV ONE (08:26)
[2018-04-05] MEDS: ASPIRIN 325 MG TAB PO SCH (08:29)
[2018-04-05] MEDS: carBAMazepine 200 MG TAB PO SCH ×3 (08:29→22:11)
[2018-04-05] MEDS: CLOPIDOGREL 75 MG TAB PO SCH (08:29)
[2018-04-05] MEDS: FAMOTIDINE 20 MG TAB PO SCH ×2 (08:29→22:12)
[2018-04-05] MEDS: TOPIRAMATE 25 MG TAB PO SCH ×3 (08:29→22:12)
[2018-04-05] MEDS: QUEtiapine 50 MG TAB PO SCH ×3 (08:30→22:11)
[2018-04-05] MEDS: POTASSIUM CHLORIDE ER 10 MEQ TAB.ER.PRT PO SCH (08:30)
[2018-04-05] MEDS: LITHIUM CARBONATE 300 MG CAP PO SCH (08:30)
[2018-04-05] MEDS: OXYBUTYNIN XL 5 MG TAB.ER.24 PO SCH (08:30)
[2018-04-05] MEDS: LIDOCAINE 5% PATCH TOPICAL SCH (08:35)
--- NOTE | 2018-04-05 11:44 | NM ---
EXAMINATION TYPE: NM stress lexiscan cardiolite DATE OF EXAM: 04/05/2018 COMPARISON: NONE HISTORY: Precordial chest pain and abnormal EKG TECHNIQUE: After the intravenous administration of 10.2 mCi Tc 99m Sestamibi - Cardiolite resting SP ECT images acquired 45 minutes post injection. The patient received 0.4mg Lexiscan, 24.8 mCi Tc 99m Sestamibi - Stress images obtained [address] injection FINDINGS: Review of stress and rest SPECT images demonstrates stress-induced decreased perfusion involving the cardiac apex, apical anterior and apical inferior saxena. No distinct fixed abnormality is identified. Gated analysis shows normal wall motion with an estimated left ventricular ejection fraction of 60 % . IMPRESSION: Findings compatible with stress-induced ischemia as discussed above.
[2018-04-05] MEDS ORDERED: ALPRAZolam 0.5 MG TAB PO PRN (12:48)
[2018-04-05] MEDS ORDERED: ALPRAZolam 0.25 MG TAB PO PRN (12:48)
[2018-04-05] MEDS ORDERED: SODIUM CHLORIDE 0.9% 1,000 ML in EMPTY BAG 1 BAG IV ONE (12:48)
[2018-04-05] MEDS ORDERED: ASPIRIN 325 MG TAB PO STA (12:48)
[2018-04-05] MEDS ORDERED: NITROGLYCERIN SL TABS 0.4 MG TAB SUBLINGUAL PRN (12:48)
[2018-04-05] MEDS ORDERED: ATORVASTATIN 80 MG TAB PO STA (12:51)
[2018-04-05] MEDS: metFORMIN 500 MG TAB PO SCH ×2 (12:55→18:07)
[2018-04-05] MEDS: GABAPENTIN 300 MG CAP PO SCH ×3 (12:55→23:11)
[2018-04-05 13:02] LABS: Glucose,Whole Blood 70 mg/dL (75-99)
[2018-04-05] MEDS ORDERED: MIDAZOLAM 2 MG/2 ML VIAL ONE (13:28)
[2018-04-05] MEDS ORDERED: VERAPAMIL 2.5 MG/ML 2 ML AMP ONE (13:29)
[2018-04-05] MEDS ORDERED: methylPREDNISolone SOD SUCCI 125 MG/2 ML VIAL ONE (13:29)
[2018-04-05] MEDS ORDERED: LIDOCAINE 2% INJ 20 MG/ML (20 ML MDV) ONE (13:29)
[2018-04-05] MEDS ORDERED: diphenhydrAMINE 50 MG/ML 1 ML VIAL ONE (13:29)
[2018-04-05] MEDS ORDERED: HEPARIN SODIUM 1,000 UN/ML (10ML VL) ONE ×2 (13:33→13:59)
[2018-04-05] MEDS ORDERED: diphenhydrAMINE 50 MG/ML 1 ML VIAL IVP ONE (13:49)
[2018-04-05] MEDS ORDERED: methylPREDNISolone SOD SUCCI 125 MG/2 ML VIAL IV ONE (13:49)
[2018-04-05] MEDS ORDERED: IV FLUID CONTINUATION 1,000 ML IV ONE (13:49)
[2018-04-05] MEDS: MIDAZOLAM 2 MG/2 ML VIAL IV ONE ×2 (13:55→13:58)
[2018-04-05] MEDS ORDERED: LIDOCAINE 2% INJ 20 MG/ML SQ ONE ×2 (13:58→13:59)
[2018-04-05] MEDS: VERAPAMIL SYRINGE (5 MG/10 ML) INTRACORON ONE ×2 (14:03→14:12)
[2018-04-05] MEDS ORDERED: IOPAMIDOL-370 100ML BTL INJ ONE (14:12)
[2018-04-05] MEDS: LISINOPRIL 5 MG TAB PO SCH (14:34)
[2018-04-05] MEDS: METOPROLOL TARTRATE 12.5 MG TAB PO SCH ×2 (14:34→22:11)
--- NOTE | 2018-04-05 15:06 | P.PN ---
Subjective Progress Note Date: 04/05/18 Principal diagnosis: Chest heaviness and fluttering This is a pleasant 62-year-old female with history of hypertension, diabetes, hyperlipidemia, history of detached retina in the left eye, hypothyroidism, prior TIA, she quit smoking approximately 20 years ago, who presents to the hospital with symptoms that she describes as pressure in the center of her chest with associated fluttering feeling. She states that the symptoms come and go, but when they come on she becomes quite short of breath, at times the discomfort goes up into her jaw, down her left arm, she breaks out into a sweat and becomes quite nauseous. Patient also states that recently she would be outstanding in her yard and feel lightheaded like she was going to fall forward. She follows with a regional sales manager at at [facility]. Patient is quite anxious about these symptoms, states that when she is having them she feels really awful. Patient states that she recently attended a wedding out of town on Tuesday, prior to the wedding she had significant swelling in her right leg which has since resolved, these symptoms of heart fluttering and chest pressure started at the wedding, however she did not want to go to a hospital in that area, and therefore presented here for this reason. EKG on presentation here showed a normal sinus rhythm with no acute changes. Subsequent EKG showed normal sinus rhythm with no acute changes. No arrhythmias have been noted on the monitor strips. Blood pressure on arrival 120/60 with a heart rate in the 60s, 99% on room air. Blood pressure at 11:00 this morning 88/48, heart rate in the 50s, 98% on room air. CBC is normal. D- dimer 0.69. Sodium 143, potassium 4.3, BUN 19, creatinine 0.7. Troponins negative 3. BNP level 194. TSH 0.0153, T4 1 0.7 . According to the patient, she did have an episode of pressure with associated fluttering in the chest through the night last night, no evidence of any arrhythmias on the monitor. Echocardiogram with Doppler study was performed which revealed an ejection fraction of 55-60%. 04/05/2018 Patient was seen and examined this morning, denied any chest discomfort, breathing overall is been stable, she denied any further sensations of fluttering in her chest. Patient did undergo a Lexiscan stress test, findings compatible with stress-induced ischemia and for this reason she was advised by Dr. Asa Perez to undergo cardiac catheterization today. The risks and the benefits were explained to her in detail, this will be performed this afternoon by Dr. Perez. BUN 22, creatinine 0.7. Objective - Vital Signs Vital signs: Vital Signs Temp 98 F 04/05/18 12:00 Pulse 63 04/05/18 12:00 Resp 18 04/05/18 12:00 BP 112/51 04/05/18 12:00 Pulse Ox 100 04/05/18 12:00 Intake & Output 04/04/18 04/05/18 04/05/18 18:59 06:59 18:59 Intake Total 770 250 Output Total 200 Balance 570 250 Weight 78.6 kg 78.471 kg Intake: IV 0 250 Sodium Chloride 0.9% 1, 0 000 ml @ 20 mls/hr IV . Q24H [facility] Rx#:[id number] Oral 770 Output: Urine 200 Other: Voiding Method Toilet # Voids 1 1 1 # Bowel Movements 0 0 - Exam PHYSICAL EXAMINATION: GENERAL: This is a 62-year-old female in no apparent distress at the time of my examination. HEENT: Head is atraumatic, normocephalic. Pupils equal, round. Left eyelid drooping, loss of vision in left eye Sclera anicteric. Conjunctiva are clear. Mucous membranes of the mouth are moist. Neck is supple. There is no elevated jugular venous pressure. No carotid bruit is heard. HEART EXAMINATION: Heart S1, S2 normal. No murmur or gallop heard. CHEST EXAMINATION: Lungs are clear to auscultation and precussion. No chest wall tenderness is noted on palpation or with deep breathing. ABDOMEN: Soft, nontender. Bowel sounds are heard. No organomegaly noted. EXTREMITIES: 2+ peripheral pulses with no evidence of peripheral edema and no calf tenderness noted. NEUROLOGIC patient is awake, alert and oriented -3. - Labs CBC & Chem 7: 04/02/18 17:28 04/05/18 06:33 Labs: Abnormal Lab Results - Last 24 Hours (Table) 04/04/18 04/05/18 04/05/18 Range/Units 20:54 06:33 12:30 Carbon Dioxide 20 L (22-30) mmol/L BUN 22 H (7-17) mg/dL POC Glucose (mg/dL) 116 H 70 L (75-99) mg/dL Assessment and Plan Plan: Assessment and plan #1 Symptoms of chest heaviness with associated fluttering in the chest, diaphoresis, shortness of breath, nausea. EKG shows normal sinus rhythm. Troponins negative 3. #2 diabetes #3 hypertension #4 hypothyroidism, on Synthroid, TSH 0.015, free T4 1 0.7. # 5 history of TIA #6 history of left retinal detachment #7 symptoms of lightheadedness and near syncope with evidence of hypotension Plan An echocardiogram with Doppler study was performed which revealed an ejection fraction of 55-60%. Orthostatics were obtained which came back to be negative. Stress test was performed today, findings were compatible with stress-induced ischemia and for this reason patient was advised to undergo cardiac catheterization, the risks and the benefits were explained to the patient in detail, this will be performed later today by Dr. Asa Perez. DNP note has been reviewed, I agree with a documented findings and plan of care. Patient was seen and examined.
--- NOTE | 2018-04-05 15:25 | CC ---
CARDIAC CATHETERIZATION REPORT DATE OF SERVICE: 04/05/2018. PROCEDURE: Left heart catheterization and coronary angiography. PERFORMED BY: Dr. Asa Perez. Moderate conscious sedation time was 19 minutes. The patient's oxygen saturation, hemodynamics and EKG were monitored closely. CLINICAL INFORMATION: Mrs. Yasmin Cordova is a lady who is 62 years of age with history of hypertension who has a history of previous CVA from which she recovered nicely without any significant residual motor dysfunction, came into the hospital with chest pain and palpitations and also some edema of the leg. Because of a nondescript presentation and negative enzymes, she was advised to have a stress test because of ongoing episodes of chest tightness. She had a positive D-dimer, but a CT angiography was negative for any pulmonary embolism. A Lexiscan stress test revealed ischemia and therefore she was advised coronary angiography. Risks, benefits, options and rationale were explained to the patient and . PROCEDURE NOTE: Under local anesthesia and strict aseptic precautions, a 6-[place]izen [place] introducer was placed in the right radial artery. Using Ultimate 1 catheter I performed selective coronary angiography of the left coronary artery and a JR 3.5 catheter was used for right coronary artery and same catheter was used to check LV pressures. LV gram was not performed. The sheath was taken out and TR band applied. Oxygen saturation of the fingers of the right hand was 98%. Patient received 1500 units of heparin intravenously. She tolerated the procedure well without complications. CARDIAC CATHETERIZATION FINDINGS: The left ventricular end-diastolic pressure was about 14 mmHg without gradient across aortic valve. CORONARY ANGIOGRAPHY FINDINGS: RIGHT CORONARY ARTERY: Technically dominant vessel. No significant disease, distally bifurcates into a large PDA and PLV, both of which are free of significant disease. LEFT MAIN CORONARY ARTERY: Long patent disease-free vessel that bifurcates into LAD and circumflex. LEFT ANTERIOR DESCENDING CORONARY ARTERY: Good caliber vessel extends along the anterior wall gives off septal and diagonal branches runs all the way to the apex, curves over the apex to supply the inferoapical portion. Minor irregularities. No significant disease in the LAD system. LEFT POSTERIOR CIRCUMFLEX CORONARY ARTERY: Technically a nondominant vessel, gives off a large obtuse marginal that runs laterally, bifurcates into 2 branches and runs in the AV groove giving off a left atrial circumflex and distal posterolateral branch. No significant disease in the nondominant circumflex. FINAL IMPRESSION: This patient has a normal to slightly elevated filling pressures, no significant obstructive coronary artery disease. She has a right dominant system. LV function by echo was normal. RECOMMENDATION: Findings were discussed with the patient and family. Continue medical therapy with risk factor modification is advised. The patient is currently on a statin agent and this will be continued. Patient has other issues in the form of type 2 diabetes, hypertension, recent CVA from which she has recovered nicely. She is on aspirin and Plavix. All medications will be continued. Risk factor modification advised. No intervention is necessary at this time from a cardiac standpoint. The results were discussed with the patient and and I expect she will be discharged tomorrow if she remains stable. MMODL / IJN: [id number] /
--- NOTE | 2018-04-05 15:31 | LTR ---
April 05, [address] Gomez: Thank you for the opportunity to participate in the care of Mrs. Yasmin Cordova. I am pleased to report to you that she does not have any significant obstructive CAD. She had abnormal stress test and therefore cardiac cath was performed. Thank you for your referral. Please do call for questions. Sincerely, LAKHWINDER / KARINEN: [id number] /
[2018-04-05] MEDS: oxyCODONE-APAP 10-325MG 1 EACH TAB PO PRN (16:09)
[2018-04-05 16:10] VITALS: RESP 16
--- NOTE | 2018-04-05 16:37 | EST ---
EXERCISE STRESS AGE: 62 SEX: Female. HT: 5'7" WT: 173 PROTOCOL: Lexiscan Cardiolite STAGE: DURATION OF EXERCISE: HEART RATE REST: 55 BLOOD PRESSURE REST: 133/66 MAXIMUM HEART RATE ACHIEVED: 100 MAXIMUM BLOOD PRESSURE: 131/62 85% MPHR: 134 100% MPHR: 158 METS: INDICATIONS: CLINICAL INFORMATION: Baseline rhythm is sinus mechanism, rate 55, normal axis and intervals. Normal electrocardiogram. Baseline blood pressure 133/66 mmHg. Patient received an injection of Lexiscan. Electrocardiographic monitoring revealed no evidence of diagnostic ischemic ST deviation. Cardiolite was injected per protocol. CONCLUSION: 1. Non-diagnostic electrocardiograph stress testing. 2. Nuclear images will be reported separately. MMODL / IJN: [id number] /
[2018-04-05 17:05] LABS: Glucose,Whole Blood 198 mg/dL (75-99)
[2018-04-05] MEDS: BACLOFEN 10 MG TAB PO PRN (17:34)
[2018-04-05 20:47] LABS: Glucose,Whole Blood 124 mg/dL (75-99)
[2018-04-05] MEDS: SODIUM CHLORIDE 0.9% 1,000 ML IV SCH (22:20)
[2018-04-06] MEDS: oxyCODONE-APAP 10-325MG 1 EACH TAB PO PRN (02:07)
[2018-04-06 02:11] LABS: Glucose,Whole Blood 102 mg/dL (75-99)
[2018-04-06] MEDS: metFORMIN 500 MG TAB PO SCH (05:55)
[2018-04-06 06:20] LABS: Glucose,Whole Blood 94 mg/dL (75-99)
[2018-04-06] MEDS: LEVOTHYROXINE 125 MCG TAB PO SCH (06:21)
[2018-04-06] MEDS: INSULIN ASPART 100 UNIT/ML 1 ML 10 ML VIAL SQ SCH ×2 (06:22→11:43)
[2018-04-06 07:58] LABS: Anion Gap 14 mmol/L; Blood Urea Nitrogen 18 mg/dL (7-17); Calcium 9.8 mg/dL (8.4-10.2); Carbon Dioxide 20 mmol/L (22-30); Chloride 111 mmol/L (98-107); Glucose 87 mg/dL (74-99); Potassium 4.9 mmol/L (3.5-5.1); Sodium 145 mmol/L (137-145)
--- NOTE | 2018-04-06 08:47 | PN ---
PROGRESS NOTE DATE OF SERVICE: 04/05/2018 PRESENTING COMPLAINT: Heart racing. INTERVAL HISTORY: This patient was seen by me yesterday on 04/05/2018. The patient presented with heart racing, found to be hyperthyroid and dose of Synthroid was cut back. Earlier patient did undergo a nuclear stress test that came back positive. The patient was taken for a cardiac catheterization and patient did not show any significant disease. The patient otherwise comfortable. REVIEW OF SYSTEMS: Review of systems done for constitutional, cardiovascular, GI, pulmonary; relevant findings as above. CURRENT MEDICATIONS: Current medications are reviewed. PHYSICAL EXAMINATION: On examination, temperature 97.8 pulse 63, respirations 16, blood pressure 122/60 pulse ox 97% on room air. GENERAL APPEARANCE: Lying in bed, comfortable. EYES: Pupils equal. Conjunctivae normal. HENT: External appearance of nose and ears normal. Oral cavity normal. NECK: JVD not raised. Mass not palpable. RESPIRATORY: Effort normal. Lungs are clear. CARDIOVASCULAR: First and second sounds normal. No edema. ABDOMEN: Soft, nontender. Liver and spleen not palpable. PSYCHIATRY: Alert and oriented x3. Mood and affect slightly anxious. INVESTIGATIONS: Potassium 4.7, BUN 22, creatinine 0.73. ASSESSMENT: 1. Symptomatic premature ventricular contractions. 2. Hyperthyroidism from over replacement, dose of Synthroid has been cut back. 3. Hypotension from patient being on diuretics, improved. 4. Diabetes mellitus type 2 on oral hypoglycemic. 5. Bipolar disorder. 6. Positive nuclear stress test with cardiac catheterization showing minimal disease. PLAN: Continue current medication and treatment plan. Patient will be observed overnight and hopefully can be discharged tomorrow if okay with Cardiology. MMODL / IJN: [id number] /
[2018-04-06] MEDS: GABAPENTIN 300 MG CAP PO SCH (09:00)
[2018-04-06] MEDS: carBAMazepine 200 MG TAB PO SCH (09:01)
[2018-04-06] MEDS: ASPIRIN 325 MG TAB PO SCH (09:01)
[2018-04-06] MEDS: LIDOCAINE 5% PATCH TOPICAL SCH (09:02)
[2018-04-06] MEDS: LISINOPRIL 5 MG TAB PO SCH (09:02)
[2018-04-06] MEDS: FAMOTIDINE 20 MG TAB PO SCH (09:02)
[2018-04-06] MEDS: CLOPIDOGREL 75 MG TAB PO SCH (09:02)
[2018-04-06] MEDS: METOPROLOL TARTRATE 12.5 MG TAB PO SCH (09:03)
[2018-04-06] MEDS: QUEtiapine 50 MG TAB PO SCH (09:03)
[2018-04-06] MEDS: OXYBUTYNIN XL 5 MG TAB.ER.24 PO SCH (09:03)
[2018-04-06] MEDS: TOPIRAMATE 25 MG TAB PO SCH (09:03)
[2018-04-06] MEDS: LITHIUM CARBONATE 300 MG CAP PO SCH (09:03)
[2018-04-06] MEDS: POTASSIUM CHLORIDE ER 10 MEQ TAB.ER.PRT PO SCH (09:03)
[2018-04-06 10:47] VITALS: TEMP 97.4
--- NOTE | 2018-04-06 11:08 | PN ---
PROGRESS NOTE Mrs. Cordova underwent cardiac cath performed by me yesterday from right radial approach. She is doing well. She has no obstructive CAD. Vital signs are stable. S1-S2 heard normally. Right radial cath is good. Her lungs are clear. Abdomen and lower extremities exam unchanged. Plan is to increase activity and she can be discharged today and she will follow up in the office in the next 7 to 14 days. Discharge instructions regarding activity, diet and medications were given. MMELIZABETHL / IJN: [id number] /
[2018-04-06 11:43] LABS: Glucose,Whole Blood 88 mg/dL (75-99)
[2018-04-06 13:12] VITALS: BP 105/57; PULSE 61
[2018-04-06] MEDS ORDERED: ATORVASTATIN 40 MG TAB PO SCH (21:00)
--- NOTE | 2018-04-07 06:39 | DS ---
DISCHARGE SUMMARY DATE OF ADMISSION: 04/03/18. DATE OF DISCHARGE: 04/06/18. FINAL DIAGNOSES: 1. Hyperthyroidism from over replacement with Synthroid probably causing symptomatic PVCs. 2. Hypotension from patient being on diuretics, discontinued. 3. Diabetes mellitus type 2 on oral hypoglycemic. 4. Bipolar disorder. 5. Cardiac catheterization showing minimal cardiac disease. CONSULTATION: Dr. Kane Perez. HOSPITAL COURSE: This is a 62-year-old patient presented with fluttering and racing sensation in the chest was significantly hypotensive. The patient was on Lasix 20 mg twice a day, that was discontinued. Also patient's TSH came back to be less than 0.015, hence the dose of Synthroid was cut back. The patient did undergo a stress test that was positive and cardiac catheterization showed minimal disease. The patient is doing much better. On the day of discharge, care was discussed in detail with the patient and . Questions were answered including medications. The patient is up and about, no further symptoms. The patient will have to have a TSH checked in next 4-[address] Kane Perez from cardiology. The patient's 2D echo showed preserved LV function. On examination, Lungs: Fair entry. Cardiovascular: First and second sounds normal. Discharge planning more than 35 minutes. PROCEDURE: Cardiac catheterization. DISCHARGE MEDICATIONS: 1. Baclofen 5 mg q.8h p.r.n. 2. Estradiol 0.05 patch as directed. 3. Pepcid 20 mg b.i.d. 4. Prinivil 5 mg p.o. daily. 5. Olivia 300 mg p.o. daily. 6. Ditropan XL 5 mg p.o. daily. 7. Seroquel 50 mg p.o. t.i.d. 8. Topamax 25 mg p.o. t.i.d. 9. Tegretol 200 mg t.i.d. 10.Duragesic 25 mcg patch every 48 hours. 11.Glucophage XR 500 mg p.o. b.i.d. 12.Neurontin 300 mg p.o. q.8 hours. 13.Percocet 10 one tablet q.8h p.r.n. 14.Lipitor 20 mg q.h.s. 15.Plavix 75 mg p.o. daily. 16.Synthroid 125 mcg p.o. daily, new dose. 17.Lopressor 12.5 p.o. b.i.d. Follow up with Dr. Kane Perez on 04/14/18, follow with Dr. Gomez 04/10/18. MMELIZABETHL / KARINEN: [id number] /
== END 2018-04-06 14:53 | disposition home or self-care (01) | DRG 918 ==
LOC: EC 16:36 → 6SEL 21:19 → OBSVTOIN 04-05 13:06
PROVIDERS: ADMIT Hospitalist; ATTEND Hospitalist
PROC: 4A023N7 Measurement of Cardiac Sampling and Pressure, Left Heart, Percutaneous Approach (ICD-10-PCS; principal; 2018-04-05 14:00)
PROC: B2151ZZ Fluoroscopy of Left Heart using Low Osmolar Contrast (ICD-10-PCS; principal; 2018-04-05 14:00)
PROC: B2111ZZ Fluoroscopy of Multiple Coronary Arteries using Low Osmolar Contrast (ICD-10-PCS; principal; 2018-04-05 14:00)
DX: T38.1X1A Poisoning by thyroid hormones and substitutes, accidental (unintentional), initial encounter (principal); E05.80 Other thyrotoxicosis without thyrotoxic crisis or storm; E03.9 Hypothyroidism, unspecified; E11.9 Type 2 diabetes mellitus without complications; E78.5 Hyperlipidemia, unspecified; F31.9 Bipolar disorder, unspecified; F41.9 Anxiety disorder, unspecified; I10 Essential (primary) hypertension; I49.3 Ventricular premature depolarization; W57.XXXA Bitten or stung by nonvenomous insect and other nonvenomous arthropods, initial encounter; T50.2X5A Adverse effect of carbonic-anhydrase inhibitors, benzothiadiazides and other diuretics, initial encounter; I95.2 Hypotension due to drugs; Z96.641 Presence of right artificial hip joint; Z79.02 Long term (current) use of antithrombotics/antiplatelets; Z79.82 Long term (current) use of aspirin; Z79.84 Long term (current) use of oral hypoglycemic drugs; Z79.899 Other long term (current) drug therapy; Z79.890 Hormone replacement therapy; Z82.49 Family history of ischemic heart disease and other diseases of the circulatory system; Z86.73 Personal history of transient ischemic attack (TIA), and cerebral infarction without residual deficits; Z87.891 Personal history of nicotine dependence; Z90.710 Acquired absence of both cervix and uterus; Z88.6 Allergy status to analgesic agent; Z88.1 Allergy status to other antibiotic agents; Z88.8 Allergy status to other drugs, medicaments and biological substances
CPT/HCPCS: 36415; 71046; 71275; 78452; 80048; 80053; 80061; 80156; 80178; 82550; 82553; 83735; 83880; 84439; 84443; 84484; 85025; 85379; 85610; 85730; 93005; 93017; 93306; 93458; 96374; 96375; 99285

== ENCOUNTER → 2019-03-20 | Outpatient (CLI) | payer BC, MEDICARE ==
--- NOTE | 2019-03-20 17:18 | US ---
EXAMINATION TYPE: US pelvic limited DATE OF EXAM: 03/20/2019 COMPARISON: No recent exams CLINICAL HISTORY: R10.2 pelvic and vu pain. Pt states yeast infection/ Pt states complete hysterect sohan TECHNIQUE: Transabdominal (TA). Transabdominal sonographic images of the pelvis were acquired. Date of LMP: 1984 TA pelvis shows distended bladder, no pelvic mass identified, normal appearing hysterectomy pelvis* * Bladder is anechoic. IMPRESSION: Postop change.
== END | disposition home or self-care (01) ==
LOC: RADUSWWP 16:15
PROVIDERS: ATTEND Family Medicine
DX: R10.2 Pelvic and perineal pain (principal); Z98.890 Other specified postprocedural states
CPT/HCPCS: 76857

== ENCOUNTER 2024-09-18 13:08 | Inpatient (IN) | payer BC, MEDICARE ==
--- NOTE | 2024-09-18 13:15 | ED ---
Trauma HPI - General Stated Complaint: Resp Arrest Time Seen by Provider: 09/18/24 13:09 Source: RN notes reviewed, old records reviewed Mode of arrival: EMS Limitations: altered mental status, physical limitation - History of Present Illness Initial Comments: This is a 69-year-old female to the ER for evaluation today. He is presenting today for evaluation regards to altered mental status patient found difficult to arouse and difficult to respond at home today last seen by about 6 AM, patient is on Plavix and does appear to have head injury on exam GCS of 3 patient unable to provide history History obtained from EMS MD Complaint: fall, injury, other (AMS) -: hour(s) Loss of Consciousness: unsure, unwitnessed Location: head, face Severity scale (1-10): 10 Consistency: constant Context: unsure, mechanical fall, drug ingestion Associated Symptoms: confusion, weakness, difficulty breathing, dizziness Treatments Prior to Arrival: other (0) - Related Data Home Medications Medication Instructions Recorded Confirmed Famotidine [Pepcid] 20 mg PO BID 10/24/17 09/18/24 Oxybutynin Xl [Ditropan XL] 5 mg PO DAILY 10/24/17 09/18/24 carBAMazepine [TEGretol] 200 mg PO QID 10/24/17 09/18/24 fentaNYL 25MCG/HR PATCH [Duragesic 1 patch TRANSDERM Q72H 10/24/17 09/18/24 25MCG/HR] Gabapentin [Neurontin] 300 mg PO TID 01/10/18 09/18/24 Clopidogrel [Plavix] 75 mg PO DAILY 04/03/18 09/18/24 Baclofen [Lioresal] 10 mg PO QID 09/18/24 09/18/24 Cholecalciferol [Vitamin D3 (125 125 mcg PO DAILY 09/18/24 09/18/24 Mcg = 5000 Iu)] Montelukast [Singulair] 10 mg PO DAILY 09/18/24 09/18/24 Multivitamin/Iron/Folic Acid 1 tab PO DAILY 09/18/24 09/18/24 [Centrum Complete Multivit Tab] Pantoprazole [Protonix] 40 mg PO DAILY 09/18/24 09/18/24 QUEtiapine [SEROquel] 50 mg PO QID 09/18/24 09/18/24 lisinopriL [Zestril] 10 mg PO DAILY 09/18/24 09/18/24 Previous Rx's Medication Instructions Recorded Atorvastatin [Lipitor] 80 mg PO DAILY #30 tab 09/25/24 Ipratropium-Albuterol Nebulize 3 ml INHALATION RT-QID #30 each 09/25/24 [Duoneb 0.5 mg-3 mg/3 ml Soln] Levothyroxine Sodium [Synthroid] 150 mcg PO 0630 #30 tab 09/25/24 Montelukast [Singulair] 10 mg PO DAILY #30 tab 09/25/24 QUEtiapine [SEROquel] 50 mg PO DAILY #30 tab 09/25/24 Allergies Allergy/AdvReac Type Severity Reaction Status Date / Time iodine Allergy Unknown Verified 09/18/24 16:11 Tetracyclic Antidepressants Allergy Anaphylaxis Verified 09/18/24 16:11 aspirin AdvReac Nausea & Verified 09/18/24 16:11 Vomiting ibuprofen AdvReac Nausea & Verified 09/18/24 16:11 Vomiting & Diarrhea morphine AdvReac Unknown Verified 09/20/24 17:12 naproxen AdvReac Nausea & Verified 09/18/24 16:11 Vomiting & Diarrhea Review of Systems ROS Statement: Those systems with pertinent positive or pertinent negative responses have been documented in the HPI. ROS Other: All systems not noted in ROS Statement are negative. Past Medical History Past Medical History: CVA/TIA, Diabetes Mellitus, Hypertension, Thyroid Disorder Additional Past Medical History / Comment(s): CVA x2, back pain History of Any Multi-Drug Resistant Organisms: None Reported Past Surgical History: Appendectomy, Back Surgery, Hysterectomy, Joint Replacement Additional Past Surgical History / Comment(s): right hip replacement, Retina off left eye, back surgery 03/18/18 Past Anesthesia/Blood Transfusion Reactions: No Reported Reaction Past Psychological History: Bipolar Past Alcohol Use History: None Reported Past Drug Use History: None Reported - Past Family History Mother Family Medical History: Myocardial Infarction ([place]) Father Additional Family Medical History / Comment(s): brain aneurysm, at age 60 General Exam - General Exam Comments Initial Comments: GCS 3 Minor bruising and abrasion to forehead Airways patent Trachea is midline Breath sounds equal bilaterally Patient hypoxic No other significant signs of external injury General appearance: alert, in no apparent distress Head exam: Present: normocephalic, normal inspection. Absent: atraumatic (anterior forehead hematoma and abrasion) Eye exam: Present: normal appearance, PERRL, EOMI. Absent: scleral icterus, conjunctival injection, periorbital swelling ENT exam: Present: normal exam, mucous membranes moist Neck exam: Present: normal inspection. Absent: tenderness, meningismus, lymphadenopathy Respiratory exam: Present: normal lung sounds bilaterally. Absent: respiratory distress, wheezes, rales, rhonchi, stridor Cardiovascular Exam: Present: regular rate, normal rhythm, normal heart sounds. Absent: systolic murmur, diastolic murmur, rubs, gallop, clicks GI/Abdominal exam: Present: soft, normal bowel sounds. Absent: distended, tenderness, guarding, rebound, rigid Extremities exam: Present: normal inspection, full ROM, normal capillary refill. Absent: tenderness, pedal edema, joint swelling, calf tenderness Back exam: Present: normal inspection Neurological exam: Present: alert, oriented X3, CN II-XII intact Psychiatric exam: Present: normal affect, normal mood Skin exam: Present: warm, dry, intact, normal color. Absent: rash Course Vital Signs 09/18/24 09/18/24 09/18/24 13:11 13:17 13:27 Temperature Pulse Rate 101 H 60 59 L Respiratory 20 7 L 13 Rate Blood Pressure 146/67 106/91 O2 Sat by Pulse 100 100 Oximetry Fraction of Inspired Oxygen (FIO2) 09/18/24 09/18/24 09/18/24 13:30 13:34 14:05 Temperature 97.4 F L Pulse Rate 54 L 50 L Respiratory 14 11 L Rate Blood Pressure 97/76 121/62 O2 Sat by Pulse 100 100 Oximetry Fraction of 100 Inspired Oxygen (FIO2) 09/18/24 09/18/24 09/18/24 14:20 14:45 15:00 Temperature 97.4 F L Pulse Rate 49 L 47 L 44 L Respiratory 13 16 16 Rate Blood Pressure 115/51 94/51 109/53 O2 Sat by Pulse 100 100 100 Oximetry Fraction of Inspired Oxygen (FIO2) 09/18/24 09/18/24 09/18/24 15:15 15:30 15:38 Temperature Pulse Rate 44 L 44 L Respiratory 16 16 Rate Blood Pressure 109/55 110/58 O2 Sat by Pulse 100 100 Oximetry Fraction of 50 Inspired Oxygen (FIO2) 09/18/24 09/18/24 09/18/24 15:45 15:51 15:58 Temperature Pulse Rate 45 L 46 L Respiratory 10 L Rate Blood Pressure 114/59 O2 Sat by Pulse 100 Oximetry Fraction of 50 Inspired Oxygen (FIO2) 09/18/24 09/18/24 09/18/24 16:00 16:14 16:15 Temperature 97.2 F L Pulse Rate 45 L 47 L 45 L Respiratory 12 16 Rate Blood Pressure 128/64 130/62 O2 Sat by Pulse 100 100 Oximetry Fraction of Inspired Oxygen (FIO2) 09/18/24 09/18/24 09/18/24 16:41 17:00 18:00 Temperature 97.4 F L 96.3 F L Pulse Rate 46 L 45 L Respiratory 14 16 Rate Blood Pressure 134/62 113/57 O2 Sat by Pulse 100 100 Oximetry Fraction of 50 Inspired Oxygen (FIO2) 09/18/24 09/18/24 09/18/24 18:50 20:00 20:07 Temperature 96.6 F L 94.0 F L Pulse Rate 47 L 49 L Respiratory Rate Blood Pressure O2 Sat by Pulse 100 Oximetry Fraction of 50 Inspired Oxygen (FIO2) 09/18/24 09/18/24 20:08 20:10 Temperature Pulse Rate 49 L Respiratory Rate Blood Pressure 115/55 O2 Sat by Pulse 100 Oximetry Fraction of 50 Inspired Oxygen (FIO2) - Reevaluation(s) Reevaluation #1: 09/18/24 13:14 medical record is reviewed 09/18/24 13:15 level 1 trauma paged Reevaluation #2: 09/18/24 14:47 Patient is showing no improvement here Patient intubated for low GCS with suspicion of trauma Patient initially for EMS did respond to Narcan and was found with fentanyl patch Reevaluation #3: 09/18/24 14:47 Spoke with immediately saying patient is full code, aware of patient's poor prognosis and grave condition Patient and family informed of results and questions answered Reevaluation #4: Was pt. sent in by a medical professional or institution (, PA, CONCERT SINGER, urgent care, hospital, or jail...) When possible be specific @ -no Did you speak to anyone other than the patient for history (EMS, parent, family, police, friend...)? What history was obtained from this source @ -no Did you review nursing and triage notes (agree or disagree)? Why? @ -agree Are old charts reviewed (outside hosp., previous admission, EMS record, old EKG, old radiological studies, urgent care reports/EKG's, jail records)? Report findings @ -yes Differential Diagnosis (chest pain, altered mental status, abdominal pain women, abdominal pain men, vaginal bleeding, weakness, fever, dyspnea, syncope, headache, dizziness, GI bleed, back pain, seizure, CVA, palpatations, mental health, musculoskeletal)? @ -prior EKG interpreted by me (3pts min.). @ -yes X-rays interpreted by me (1pt min.). @ -yes negative for acute disease CT interpreted by me (1pt min.). @ -Yes negative for acute disease U/S interpreted by me (1pt. min.). @ -no What testing was considered but not performed or refused? (CT, X-rays, U/S, labs)? Why? @ -none What meds were considered but not given or refused? Why? @ -none Did you discuss the management of the patient with other professionals (professionals i.e. , PA, CONCERT SINGER, lab, RT, psych nurse, vp digital marketing social media and crm, gym teacher, teacher, purchasing officer, rn case manager hospice)? Give summary @ -no Was smoking cessation discussed for >3mins.? @ -no Was critical care preformed (if so, how long)? @ -yes95 Were there social determinants of health that impacted care today? How? (Homelessness, low income, unemployed, alcoholism, drug addiction, transportation, low edu. Level, literacy, decrease access to med. care, half-way, rehab)? @ -none Was there de-escalation of care discussed even if they declined (Discuss DNR or withdrawal of care, Hospice)? DNR status @ -no What co-morbidities impacted this encounter? (DM, HTN, Smoking, COPD, CAD, Cancer, CVA, ARF, Chemo, Hep., AIDS, mental health diagnosis, sleep apnea, morbid obesity)? @ -none Was patient admitted / discharged? Hospital course, mention meds given and route, prescriptions, significant lab abnormalities, going to OR and other pertinent info. @ - 69 female who is brought in under express suspected fall on anticoagulation and a level 1 trauma, patient was intubated for airway protection with a GCS of 3, at this time patient has no significant evidence of intracranial hemorrhage or acute traumatic injury Admitted Undiagnosed new problem with uncertain prognosis? @ -no Drug Therapy requiring intensive monitoring for toxicity (Heparin, Nitro, Insulin, Cardizem)? @ -no Were any procedures done? @ -no Diagnosis/symptom? @ -respiratory failure Acute, or Chronic, or Acute on Chronic? @ -Acute Uncomplicated (without systemic symptoms) or Complicated (systemic symptoms)? @ -Complicated Side effects of treatment? @ -no Exacerbation, Progression, or Severe Exacerbation? @ -exacerbation Poses a threat to life or bodily function? How? (Chest pain, [place], [place], pneumonia, PE, COPD, DKA, ARF, appy, cholecystitis, CVA, Diverticulitis, Homicidal, Suicidal, threat to staff... and all critical care pts) @ -yes respiratory failure Reevaluation #5: Differential Altered Mental Status: Hypoglycemia, DKA, hypercapnia, ETOH, overdose, CO poisoning, trauma, myxedema coma, HTN encephalopathy, infection, encephalitis, psychosis, intercranial hemorrhage, hepatic encephalopathy, meningitis, CVA, this is not meant to be an all-inclusive list - Consultations Consultation #1: Dr. Tay level 1 trauma paged at bedside Procedures - Intubation Sedative: Versed Mg Given: 10 Paralytic: Succinylcholine Mg Given: 100 Laryngoscope: [place] Size: 4 ET Tube Size: 7.5 ET Tube Uncuffed: No Tube Secured Location: teeth Tube Placement Confirmation: visualized tube passing through cords, equal breath sounds bilaterally, no breath sounds over epigastrium, confirmation by capnometry Patient Tolerated Procedure: well Intubation Complications: none Medical Decision Making - Medical Decision Making 69 female who is brought in under express suspected fall on anticoagulation and a level 1 trauma, patient was intubated for airway protection with a GCS of 3, at this time patient has no significant evidence of intracranial hemorrhage or acute traumatic injury - Lab Data Result diagrams: 09/22/24 09:45 09/24/24 09:21 Lab Results 09/18/24 09/18/24 09/18/24 Range/Units 13:15 13:18 13:18 WBC 9.0 (3.8-10.6) k/uL RBC 4.00 (3.80-5.40) m/uL Hgb 12.1 (11.4-16.0) gm/dL Hct 36.9 (34.0-46.0) % MCV 92.3 (80.0-100.0) fL MCH 30.2 (25.0-35.0) pg MCHC 32.7 (31.0-37.0) g/dL RDW 13.0 (11.5-15.5) % Plt Count 234 (150-450) k/uL MPV 6.9 Neutrophils % 75 % Lymphocytes % 16 % Monocytes % 6 % Eosinophils % 1 % Basophils % 0 % Neutrophils # 6.8 (1.3-7.7) k/uL Lymphocytes # 1.5 (1.0-4.8) k/uL Monocytes # 0.5 (0-1.0) k/uL Eosinophils # 0.1 (0-0.7) k/uL Basophils # 0.0 (0-0.2) k/uL PT 10.2 (10.0-12.5) sec INR 0.9 (<1.2) APTT 25.2 (22.0-30.0) sec Sodium (137-145) mmol/L Potassium (3.5-5.1) mmol/L Chloride (98-107) mmol/L Carbon Dioxide (22-30) mmol/L Anion Gap mmol/L BUN (7-17) mg/dL Creatinine (0.52-1.04) mg/dL Est GFR (CKD-EPI)AfAm (>60 ml/min/1.73 sqM) Est GFR (CKD-EPI)NonAf (>60 ml/min/1.73 sqM) Glucose (74-99) mg/dL POC Glucose (mg/dL) (70-110) mg/dL POC Glu Catalogue Maker ID Plasma Lactic Acid Evangelist (0.7-2.0) mmol/L Calcium (8.4-10.2) mg/dL Total Bilirubin (0.2-1.3) mg/dL AST (14-36) U/L ALT (4-34) U/L Alkaline Phosphatase (38-126) U/L Troponin I (0.000-0.034) ng/mL Total Protein (6.3-8.2) g/dL Albumin (3.5-5.0) g/dL Urine Opiates Screen (NotDetected) Ur Oxycodone Screen (NotDetected) Urine Methadone Screen (NotDetected) Ur Barbiturates Screen (NotDetected) U Tricyclic Antidepress (NotDetected) Ur Phencyclidine Scrn (NotDetected) Ur Amphetamines Screen (NotDetected) U Methamphetamines Scrn (NotDetected) U Benzodiazepines Scrn (NotDetected) Urine Cocaine Screen (NotDetected) U Marijuana (THC) Screen (NotDetected) Serum Alcohol mg/dL Blood Type O Positive Blood Type Confirm Blood Type Recheck No Previous Record Bld Type Recheck Status CABO Indicated Antibody Screen NEGATIVE Spec Expiration Date 09/21/2024 - 231409/18/24 09/18/24 09/18/24 Range/Units 13:18 13:18 13:18 WBC (3.8-10.6) k/uL RBC (3.80-5.40) m/uL Hgb (11.4-16.0) gm/dL Hct (34.0-46.0) % MCV (80.0-100.0) fL MCH (25.0-35.0) pg MCHC (31.0-37.0) g/dL RDW (11.5-15.5) % Plt Count (150-450) k/uL MPV Neutrophils % % Lymphocytes % % Monocytes % % Eosinophils % % Basophils % % Neutrophils # (1.3-7.7) k/uL Lymphocytes # (1.0-4.8) k/uL Monocytes # (0-1.0) k/uL Eosinophils # (0-0.7) k/uL Basophils # (0-0.2) k/uL PT (10.0-12.5) sec INR (<1.2) APTT (22.0-30.0) sec Sodium 140 (137-145) mmol/L Potassium 3.9 (3.5-5.1) mmol/L Chloride 105 (98-107) mmol/L Carbon Dioxide 27 (22-30) mmol/L Anion Gap 8 mmol/L BUN 28 H (7-17) mg/dL Creatinine 1.33 H (0.52-1.04) mg/dL Est GFR (CKD-EPI)AfAm 47 (>60 ml/min/1.73 sqM) Est GFR (CKD-EPI)NonAf 41 (>60 ml/min/1.73 sqM) Glucose 106 H (74-99) mg/dL POC Glucose (mg/dL) (70-110) mg/dL POC Glu Catalogue Maker ID Plasma Lactic Acid Evangelist 1.2 (0.7-2.0) mmol/L Calcium 9.1 (8.4-10.2) mg/dL Total Bilirubin 0.4 (0.2-1.3) mg/dL AST 23 (14-36) U/L ALT 17 (4-34) U/L Alkaline Phosphatase 115 (38-126) U/L Troponin I <0.012 (0.000-0.034) ng/mL Total Protein 7.1 (6.3-8.2) g/dL Albumin 4.4 (3.5-5.0) g/dL Urine Opiates Screen (NotDetected) Ur Oxycodone Screen (NotDetected) Urine Methadone Screen (NotDetected) Ur Barbiturates Screen (NotDetected) U Tricyclic Antidepress (NotDetected) Ur Phencyclidine Scrn (NotDetected) Ur Amphetamines Screen (NotDetected) U Methamphetamines Scrn (NotDetected) U Benzodiazepines Scrn (NotDetected) Urine Cocaine Screen (NotDetected) U Marijuana (THC) Screen (NotDetected) Serum Alcohol <10 mg/dL Blood Type Blood Type Confirm Blood Type Recheck Bld Type Recheck Status Antibody Screen Spec Expiration Date 09/18/24 09/18/24 09/18/24 Range/Units 13:20 14:11 14:33 WBC (3.8-10.6) k/uL RBC (3.80-5.40) m/uL Hgb (11.4-16.0) gm/dL Hct (34.0-46.0) % MCV (80.0-100.0) fL MCH (25.0-35.0) pg MCHC (31.0-37.0) g/dL RDW (11.5-15.5) % Plt Count (150-450) k/uL MPV Neutrophils % % Lymphocytes % % Monocytes % % Eosinophils % % Basophils % % Neutrophils # (1.3-7.7) k/uL Lymphocytes # (1.0-4.8) k/uL Monocytes # (0-1.0) k/uL Eosinophils # (0-0.7) k/uL Basophils # (0-0.2) k/uL PT (10.0-12.5) sec INR (<1.2) APTT (22.0-30.0) sec Sodium (137-145) mmol/L Potassium (3.5-5.1) mmol/L Chloride (98-107) mmol/L Carbon Dioxide (22-30) mmol/L Anion Gap mmol/L BUN (7-17) mg/dL Creatinine (0.52-1.04) mg/dL Est GFR (CKD-EPI)AfAm (>60 ml/min/1.73 sqM) Est GFR (CKD-EPI)NonAf (>60 ml/min/1.73 sqM) Glucose (74-99) mg/dL POC Glucose (mg/dL) 97 (70-110) mg/dL POC Glu Catalogue Maker ID Aj Queen Plasma Lactic Acid Evangelist (0.7-2.0) mmol/L Calcium (8.4-10.2) mg/dL Total Bilirubin (0.2-1.3) mg/dL AST (14-36) U/L ALT (4-34) U/L Alkaline Phosphatase (38-126) U/L Troponin I (0.000-0.034) ng/mL Total Protein (6.3-8.2) g/dL Albumin (3.5-5.0) g/dL Urine Opiates Screen Not Detected (NotDetected) Ur Oxycodone Screen Detected H (NotDetected) Urine Methadone Screen Not Detected (NotDetected) Ur Barbiturates Screen Not Detected (NotDetected) U Tricyclic Antidepress Detected H (NotDetected) Ur Phencyclidine Scrn Not Detected (NotDetected) Ur Amphetamines Screen Not Detected (NotDetected) U Methamphetamines Scrn Not Detected (NotDetected) U Benzodiazepines Scrn Not Detected (NotDetected) Urine Cocaine Screen Not Detected (NotDetected) U Marijuana (THC) Screen Not Detected (NotDetected) Serum Alcohol mg/dL Blood Type Blood Type Confirm O Positive Blood Type Recheck Bld Type Recheck Status Antibody Screen Spec Expiration Date - EKG Data -: EKG Interpreted by Me (EKG is sinus 61 [place] 181 QRS 161 QTc 438) - Radiology Data Radiology results: report reviewed (Chest x-ray pelvis x-ray CT brain C-spine facial bones CT chest abdomen pelvis negative for acute traumatic injury), image reviewed Critical Care Time Critical Care Time: Yes Total Critical Care Time: 95 Disposition Clinical Impression: Altered mental status, Fall, Head injury, Acute respiratory failure, Hypoxia Disposition: ADMITTED IP TO THIS HOSP Condition: Fair Is patient prescribed a controlled substance at d/c from ED?: No Time of Disposition: 14:45
[2024-09-18] MEDS: SODIUM CHLORIDE 0.9% 1,000 ML IV STA (13:25)
[2024-09-18] MEDS: LORazepam 2 MG/ML INJ IV STA (13:25)
[2024-09-18] MEDS: MIDAZOLAM 1 MG/ML 5 ML VIAL IV STA (13:31)
[2024-09-18] MEDS: SUCCINYLCHOLINE CHLORIDE 200 MG/10 ML VIAL IV STA (13:31)
[2024-09-18 13:33] LABS: Basophils % (A) 0 %; Eosinophils # (A) 0.1 k/uL (0-0.7); Eosinophils % (A) 1 %; HCT 36.9 % (34.0-46.0); HGB 12.1 gm/dL (11.4-16.0); Lymphocytes # (A) 1.5 k/uL (1.0-4.8); Lymphocytes % (A) 16 %; MCH 30.2 pg (25.0-35.0); MCHC 32.7 g/dL (31.0-37.0); MCV 92.3 fL (80.0-100.0); Mean Platelet Volume 6.9; Monocytes # (A) 0.5 k/uL (0-1.0); Monocytes % (A) 6 %; Neutrophils # (A) 6.8 k/uL (1.3-7.7); Neutrophils % (A) 75 %; Platelet Count 234 k/uL (150-450)
[2024-09-18] MEDS ORDERED: Kcentra / Balfaxar PER PHARMACY 1 EACH MISC MISCELLANE PRN (13:34)
[2024-09-18] MEDS: diphenhydrAMINE 50 MG/ML 1 ML VIAL IVP STA (13:36)
[2024-09-18 13:39] LABS: ALT 17 U/L (4-34); AST 23 U/L (14-36); African American GFR (CKD) 47 (>60 ml/min/1.73 sqM); Albumin 4.4 g/dL (3.5-5.0); Alcohol <10 mg/dL; Alkaline Phosphatase 115 U/L (38-126); Anion Gap 8 mmol/L; Blood Urea Nitrogen 28 mg/dL (7-17); Calcium 9.1 mg/dL (8.4-10.2); Carbon Dioxide 27 mmol/L (22-30); Chloride 105 mmol/L (98-107); Glucose 106 mg/dL (74-99); Non-African American GFR(CKD) 41 (>60 ml/min/1.73 sqM); Potassium 3.9 mmol/L (3.5-5.1); Sodium 140 mmol/L (137-145); Total Bilirubin 0.4 mg/dL (0.2-1.3); Total Protein 7.1 g/dL (6.3-8.2)
--- NOTE | 2024-09-18 13:39 | XR ---
EXAMINATION TYPE: XR pelvis AP view DATE OF EXAM: 09/18/2024 1:27 PM COMPARISON: None. CLINICAL INDICATION: Female, 69 years old with history of Trauma, pain TECHNIQUE: XR pelvis AP view views were obtained FINDINGS: No evidence for fracture, dislocation or bony lesion. Total right hip arthroplasty in plac e. Postoperative changes of fusion lower lumbar spine. SI joints appear symmetric. IMPRESSION: No acute fracture or dislocation seen. [facility], , 09/18/2024 1:36 PM
[2024-09-18 13:41] LABS: INR 0.9 (<1.2); Partial Thromboplastin Time 25.2 sec (22.0-30.0); Prothrombin Time 10.2 sec (10.0-12.5)
--- NOTE | 2024-09-18 13:42 | XR ---
EXAMINATION TYPE: XR chest 1V portable DATE OF EXAM: 09/18/2024 CLINICAL HISTORY: trauma TECHNIQUE: Single frontal view of the chest is obtained. COMPARISON: 04/19/2018 FINDINGS: There is no focal air space opacity, pleural effusion, or pneumothorax seen. The cardiac silhouette size is within normal limits. The osseous structures are intact. IMPRESSION: No acute process. [facility], , 09/18/2024 1:39 PM
[2024-09-18] MEDS: FAMOTIDINE 20 MG/2 ML VIAL IV STA (13:45)
[2024-09-18] MEDS: methylPREDNISolone SOD SUCCI 125 MG/2 ML VIAL IV STA (13:48)
[2024-09-18] MEDS: MIDAZOLAM 2 MG/2 ML VIAL IV ONE (13:54)
[2024-09-18 14:13] LABS: Glucose,Whole Blood 97 mg/dL (70-110)
--- NOTE | 2024-09-18 14:23 | CT ---
EXAMINATION TYPE: CT brain cspine wo con, CT facial bones wo con CT DLP: 1077.6 mGycm, Automated exposure control for dose reduction was used. DATE OF EXAM: 09/18/2024 2:05 PM COMPARISON: None. CLINICAL INDICATION:Female, 69 years old with history of trauma; facial trauma, unresponsive TECHNIQUE: Brain: Multiple axial CT images of the brain were obtained without IV contrast. Cspine: Axial CT images from the skull base to the inferior aspect of T2 we obtained without intraven ous contrast. Coronal and sagittal reformatted images were also reviewed. Facial bones; axial CT images of the facial bones were obtained without contrast and soft tissue and bone windows. Coronal and sagittal reformatted images were also reviewed. FINDINGS: Brain: Extra-axial spaces: No abnormal extra-axial fluid collections. Ventricular system: Within normal limits Cerebral parenchyma: No acute intraparenchymal hemorrhage or mass effect. The lopez-white junction is well differentiated. Cerebellum: Unremarkable. Mass effect: No evidence of midline shift. Intracranial vasculature: Atherosclerotic calcifications of the intracranial vessels. Soft tissues: Small forehead soft tissue contusion. Calvarium: No depressed skull fracture. Paranasal sinuses and mastoid air cells: The mastoid air cells are clear. Mild mucosal thickening of the ethmoid sinuses. Visualized orbits: No acute traumatic process to the orbital contents. Left aphakia with scleral weems le. Other: Partial visualization of endotracheal and NG tubes. Cervical spine: Fracture: None. Osseous structures: Multilevel degenerative disc disease changes with endplate spurring and disc oste ophyte complex's. Vertebral alignment: Grade 1 anterolisthesis of C4 on C5 and C7 on T1, favored to be degenerative. Spinal canal/Neural Foramina: Disc osteophyte complexes at C3-C4, C6-C7 with at least mild spinal can al stenosis. Facet joint uncovertebral joint arthropathy scattered throughout the cervical spine with varying degrees of neural foraminal stenosis. Neck soft tissues: Prevertebral soft tissues are within normal limits. Other: The airway is patent. Centrilobular emphysematous changes. Trace secretions within the trachea . Endotracheal tube and NG tube demonstrated. Endotracheal tube terminates within the right mainstem bronchus. Facial Bones: There is no evidence of fracture, subluxation, dislocation. Small forehead soft tissue contusion. The orbital contents are intact. Left aphakia with left-sided buckle. The temporal-mandibular joints dominik ear symmetric. The mastoid air cells are clear. Mild mucosal thickening ethmoid sinuses. The remainin g visualized portion of the paranasal sinuses appear clear. IMPRESSION: 1. No acute intracranial process. 2. Small forehead soft tissue contusion. 3. No acute facial bone fracture. 4. No evidence of cervical spine fracture. 5. Moderate multilevel degenerative disc disease. 6. Grade 1 anterolisthesis of C4 on C5 and C7 on T1, favored to be degenerative. [facility], , 09/18/2024 2:21 PM
--- NOTE | 2024-09-18 14:36 | CT ---
EXAMINATION TYPE: CT ChestAbdPelvis w con, CT thor lumbar spine w con CT DLP: 1105 mGycm, Automated exposure control for dose reduction was used. DATE OF EXAM: 09/18/2024 2:09 PM COMPARISON: Chest and pelvic radiographs of the same date, CTA chest 04/02/2018, CT abdomen and pelvis 03/18/2016. CLINICAL INDICATION:Female, 69 years old with history of trauma; PHH, unresponsive, unknown trauma Technique: Multiple axial images of the chest, abdomen, and pelvis were obtained following the intrav enous administration of 100 mL Isovue-300. Additional soft tissue and bone windows were obtained of t he thoracolumbar spine. Two-dimensional coronal and sagittal reconstructions were obtained. Findings: CHEST: LUNGS/ PLEURA: No pleural effusion or pneumothorax. Minimal dependent left lower lobe consolidation c hanges. Calcified granulomas within the bilateral lung bases. Dependent bilateral lower lobe subsegme ntal atelectasis . Centrilobular emphysematous changes. AIRWAY: Secretions within the trachea. The endotracheal tube terminates within the right mainstem bro nchus. HEART: Cardiomegaly is demonstrated.No pericardial effusion. MEDIASTINUM: No evidence of adenopathy. No mediastinal hematoma. VASCULATURE: No aortic aneurysm. Mild atherosclerotic calcification of the aorta and its branches. N o evidence for aortic injury. MUSCULOSKELETAL: Healing left sided lateral seventh and eighth ribs with callus formation. Fracture l bev are still visible. SOFT TISSUES/LYMPH NODES: Unremarkable. LOWER NECK: No significant findings. ABDOMEN: ABDOMEN LIVER: Unremarkable GALLBLADDER AND BILE DUCTS: Unremarkable. PANCREAS: Unremarkable. SPLEEN: Unremarkable. ADRENAL GLANDS: Right adrenal is unremarkable. Stable thickening of the left adrenal gland dating norm k to 2015 and considered benign. KIDNEYS AND URETERS: No evidence of hydronephrosis or renal calculus. The kidneys enhance symmetrical ly. Contrast is demonstrated within both collecting systems on the delayed phase. Subcentimeter hypod ense bilateral renal lesions which are too small to characterize but likely represent cysts. PELVIS BLADDER: Poorly visualized due to streak artifact from hip prosthesis. REPRODUCTIVE: Poorly visualized due to streak artifact from hip prosthesis. ABDOMEN & PELVIS STOMACH AND BOWEL: NG tube terminates appropriately within the stomach.Mild colonic stool burden. No focal bowel wall thickening or surrounding inflammatory changes. No evidence of bowel obstruction. PERITONEUM: No evidence of pneumoperitoneum or free fluid. VASCULATURE: No evidence of aortic aneurysm. Mild atherosclerotic calcification of the aorta and its branches. No evidence for aortic injury. MUSCULOSKELETAL: Post surgical changes from right total hip arthroplasty. Postsurgical changes from p osterior fusion with left-sided pedicular screws and rods involving L4 and L5 with laminectomy change . Mild retrolisthesis of L3 and L4 with degenerative disc disease most pronounced at this level with disc space narrowing, endplate sclerosis, and anterior osteophytosis. Healing left-sided L1 transvers e process fracture with callus formation. Healing left transverse process of L2 fracture with scleros is at the fracture ends. Fracture lines are still visible. LYMPH NODES: No evidence for lymphadenopathy. SOFT TISSUE/ABDOMINAL WALL: Unremarkable IMPRESSION: 1. No acute traumatic process within the chest, abdomen and pelvis. 2. Healing left lateral seventh and eighth rib fractures with callus formation. Additional healing l eft L1 and L2 transverse process fractures with callus formation. Fracture lines are still visible. 3. Endotracheal tube terminates within the right mainstem bronchus. Recommend withdrawing 2 cm. 4. Moderate COPD changes with minimal bibasilar atelectasis/consolidation. [facility], , 09/18/2024 2:34 PM
--- NOTE | 2024-09-18 14:52 | XR ---
EXAMINATION TYPE: XR chest 1V portable DATE OF EXAM: 09/18/2024 CLINICAL HISTORY: ET/NGT placement TECHNIQUE: Single frontal view of the chest is obtained. COMPARISON: 09/18/2024 from earlier in the day FINDINGS: Endotracheal tube is noted to be in place with its distal tip approximately 2 cm from the vania. NG tube is seen coursing into the stomach. There is no focal air space opacity, pleural effus ion, or pneumothorax seen. The cardiac silhouette size is within normal limits. The osseous struct ures are intact. IMPRESSION: Endotracheal tube is noted to be in place with its distal tip approximately 2 cm from th e vania. NG tube is seen coursing into the stomach. [facility], , 09/18/2024 2:50 PM
[2024-09-18 14:53] LABS: Amphetamine Screen,Urine Not Detected (NotDetected); Barbiturate Screen,Urine Not Detected (NotDetected); Benzodiazepines Screen,Urine Not Detected (NotDetected); Cocaine Screen,Urine Not Detected (NotDetected); Methadone Screen, Urine Not Detected (NotDetected); Opiate Screen,Urine Not Detected (NotDetected); Oxycodone Screen, Urine Detected (NotDetected); Phencyclidine Screen,Urine Not Detected (NotDetected); Tricyclic Antidepressant,Urine Detected (NotDetected); Urn Cannabinoid Scrn Not Detected (NotDetected)
[2024-09-18] MEDS ORDERED: NALOXONE 0.4 MG/ML 1 ML VIAL IV PRN (14:54)
[2024-09-18 15:26] LABS: Allen Test Performed? Yes
[2024-09-18 15:27] LABS: ABG Base Excess -1.6 mmol/L; ABG HCO3 24 mmol/L (21-25); ABG Oxygen Saturation >100.0 % (94-97); ABG PCO2 41 mmHg (35-45); ABG PH 7.37 (7.35-7.45); ABG PO2 391 mmHg (83-108); ABG TCO2 25 mmol/L (19-24)
[2024-09-18] MEDS: IPRATROPIUM-ALBUTEROL 3 ML NEB INHALATION SCH (15:57)
[2024-09-18] MEDS ORDERED: ONDANSETRON 4 MG/2 ML VIAL IVP PRN (16:21)
--- NOTE | 2024-09-18 16:38 | P.HPIM ---
History of Present Illness H&P Date: 09/18/24 69 year old F with PMH of Bipolar disorder, HTN, DM, HTN, Hypothyroid, h/o CVA/TIA, HLD presents to the ED for altered mentation. She is currently intubated and history is obtained from the . She was last seen normal at 5AM, sleeping comfortably when the left for work. When her travel consultant came around noon, she noticed the kitchen was a mess and the patient was laying on the couch, unresponsive, with a bruise on her forehead. EMS was called. In the ED BP 146/67, HR 60, RR 7, 100% on BVM. She was given narcan with minimal improvement. She was intubated in the ED to protect her airway. CBC, Coag panel, CMP significant for BUN 28, Cr 1.33, glu 106. Lactic acid 1.2. Troponin < 0.012. EKG sinus rhythm with RBBB and L anterior fascicular block. UDS + oxycodone, TCA. Serum EtOH < 10. CT brain, C-spine, face showed small forehead contusion, moderate DJD, grade 1 anterolisthesis C4 on C5, C7 on T1. CT chest/abd/pelvis showed healing 7th and 8th rib fracture, healing L1 and L2 transverse process fracture, moderate COPD with bibasilar atelectasis/consolidation. General: Intubated Derm: warm, dry Head: atraumatic, normocephalic, symmetric, contusion forehead Eyes: no lid lag, anicteric sclera, pinpoint R pupil, aphakia L eye Mouth: no lip lesion, mucus membranes moist Cardiovascular: S1S2 elan, no murmur Lungs: Decreased BS bilateral, no rhonchi, no rales , mechanically ventilated Abdominal: soft, non tender to palpation Ext: no gross muscle atrophy, no edema, no contractures Neuro: Unable to determine Psych: Unable to determine Based on my assessment of this patient, this patient meets a high complexity level of care. Acute metabolic encephalopathy: CVA versus concussion versus seizure versus cardiac cause. Also polypharmacy (patient has been on the same medication for years). Hold Tegretol, Fentanyl, Gabapentin, Baclofen and Seroquel for now. Carbamazepine levels ordered. Trend Trop/EKG to rule out ACS. Obtain Echo. Telemetry monitoring. Seizure and Fall precautions. Advanced neurochecks. Accuchecks Q6H. Wean propofol when appropriate. Consider MRI brain and EEG. Consult neurology. Acute hypoxic respiratory failure secondary to above Acute kidney injury versus CKD: Start NS at 50 cc/hr. Hold Lisinopril. Avoid nephrotoxins. Bipolar disorder: Hold Tegetrol and Seroquel for now. HTN: Hold Lisinopril. DM: Accuchecks Q6H. Hypothyroid: Synthroid 150 mcg PO QD. h/o CVA/TIA: Plavix 75 mg PO QD. Crestor 40 mg PO QD. CODE STATUS: FULL CODE DVT Prophylaxis: Heparin SQ GI Prophylaxis: Protonix PO Designated medical POA if patient is not able to make medical decisions for themselves: . I have reviewed the following network relations consultant notes: ER note. I have reviewed the results of the following tests: As above. I have ordered the following tests: As above. I have discussed the care of this patient with the following independent historian: . I have independently interpreted the following test below: EKG. I have discussed the management of this patient with the following physician: Dr. Perez Past Medical History Past Medical History: CVA/TIA, Diabetes Mellitus, Hypertension, Thyroid Disorder Additional Past Medical History / Comment(s): CVA x2, back pain History of Any Multi-Drug Resistant Organisms: None Reported Past Surgical History: Appendectomy, Back Surgery, Hysterectomy, Joint Replacement Additional Past Surgical History / Comment(s): right hip replacement, Retina off left eye, back surgery 03/18/18 Past Anesthesia/Blood Transfusion Reactions: No Reported Reaction Past Psychological History: Bipolar Past Alcohol Use History: None Reported Past Drug Use History: None Reported - Past Family History Mother Family Medical History: Myocardial Infarction (MD) Father Additional Family Medical History / Comment(s): brain aneurysm, at age 60 Medications and Allergies Home Medications Medication Instructions Recorded Confirmed Type Baclofen [Lioresal] 5 mg PO Q8H PRN 10/24/17 06/29/18 History Famotidine [Pepcid] 20 mg PO BID 10/24/17 06/29/18 History Impact Carbonate [Lithobid] 300 mg PO DAILY 10/24/17 06/29/18 History Oxybutynin Xl [Ditropan XL] 5 mg PO DAILY 10/24/17 06/29/18 History QUEtiapine [SEROquel] 50 mg PO TID 10/24/17 06/29/18 History Topiramate [Topamax] 25 mg PO TID 10/24/17 06/29/18 History carBAMazepine [TEGretol] 200 mg PO TID 10/24/17 06/29/18 History estradioL [Estradiol 0.05 MG Patch] 1 patch TRANSDERM DIRECTED 10/24/17 06/29/18 History fentaNYL 25MCG/HR PATCH [Duragesic 1 patch TRANSDERM Q48H 10/24/17 06/29/18 History 25MCG/HR] lisinopriL [Prinivil] 5 mg PO DAILY 10/24/17 06/29/18 History metFORMIN HCL ER [Glucophage XR] 500 mg PO BID 10/24/17 06/29/18 History Gabapentin [Neurontin] 300 mg PO Q8HR 01/10/18 06/29/18 History oxyCODONE-APAP 10-325MG [Percocet 1 tab PO Q8HR PRN 01/10/18 06/29/18 History 10-325 mg] Atorvastatin [Lipitor] 20 mg PO HS 04/03/18 06/29/18 History Clopidogrel [Plavix] 75 mg PO DAILY 04/03/18 06/29/18 History Levothyroxine Sodium [Synthroid] 125 mcg PO DAILY@0630 #30 tab 04/06/18 06/29/18 Rx Metoprolol Tartrate [Lopressor] 12.5 mg PO BID #60 tab 04/06/18 06/29/18 Rx Allergies Allergy/AdvReac Type Severity Reaction Status Date / Time iodine Allergy Unknown Verified 09/18/24 16:11 Tetracyclic Antidepressants Allergy Anaphylaxis Verified 09/18/24 16:11 aspirin AdvReac Nausea & Verified 09/18/24 16:11 Vomiting ibuprofen AdvReac Nausea & Verified 09/18/24 16:11 Vomiting & Diarrhea naproxen AdvReac Nausea & Verified 09/18/24 16:11 Vomiting & Diarrhea Physical Exam Vitals: Vital Signs Temp Pulse Resp BP Pulse Ox FiO2 09/18/24 16:15 45 L 16 130/62 100 09/18/24 16:00 97.2 F L 45 L 12 128/64 100 09/18/24 15:58 46 L 09/18/24 15:51 50 09/18/24 15:45 45 L 10 L 114/59 100 09/18/24 15:38 50 09/18/24 15:30 44 L 16 110/58 100 09/18/24 15:15 44 L 16 109/55 100 09/18/24 15:00 97.4 F L 44 L 16 109/53 100 09/18/24 14:45 47 L 16 94/51 100 09/18/24 14:20 49 L 13 115/51 100 09/18/24 14:19 100 09/18/24 14:05 97.4 F L 50 L 11 L 121/62 100 09/18/24 13:34 100 09/18/24 13:30 54 L 14 97/76 100 09/18/24 13:27 59 L 13 106/91 100 09/18/24 13:17 60 7 L 146/67 100 09/18/24 13:11 101 H 20 Intake and Output 09/18/24 09/18/24 09/18/24 06:59 14:59 22:59 Intake Total 2.177 Output Total 600 Balance -597.823 Intake: Intake, IV Titration 2.177 Amount propofoL 1,000 mg In 2.177 Empty Bag 1 bag @ Titrate IV .Q0M ONE Rx#: [id number] Output: Urine 600 Uretheral (Bailey) 600 Other: Weight 68.039 kg Results CBC & Chem 7: 09/18/24 13:18 09/18/24 13:18 Labs: Abnormal Lab Results - Last 24 Hours (Table) 09/18/24 09/18/24 09/18/24 Range/Units 13:18 14:33 15:20 ABG pO2 391 H (83-108) mmHg ABG Total CO2 25 H (19-24) mmol/L ABG O2 Saturation >100.0 H (94-97) % BUN 28 H (7-17) mg/dL Creatinine 1.33 H (0.52-1.04) mg/dL Glucose 106 H (74-99) mg/dL Ur Oxycodone Screen Detected H (NotDetected) U Tricyclic Antidepress Detected H (NotDetected)
[2024-09-18] MEDS: SODIUM CHLORIDE 0.9% 1,000 ML IV SCH (16:46)
[2024-09-18 17:05] LABS: Glucose,Whole Blood 122 mg/dL (70-110)
[2024-09-18 17:24] LABS: Appearance,Urine Clear (Clear); Bilirubin,Urine Negative (Negative); Blood,Urine Negative (Negative); Color,Urine Colorless; Glucose,Urine (UA) Negative (Negative); Ketones,Urine Negative (Negative); Leukocyte Esterase,Urine Negative (Negative); Nitrite,Urine Negative (Negative); Protein,Urine Negative (Negative); Urobilinogen,Urine <2.0 mg/dL (<2.0)
[2024-09-18] MEDS: levETIRAcetam IV 500 MG/5 ML VIAL IVP SCH (18:11)
--- NOTE | 2024-09-18 19:45 | P.CNNES ---
History of Present Illness Consult date: 09/18/24 Requesting physician: Juan Perez Reason for Consult: ams History of Present Illness: This is a 69-year-old woman who presented emergency department for unresponsiveness. History is obtained from the patient who is at bedside. According to the today around noon she was sitting in the chair and she was found to by co director that she was unresponsive. She has a bruise the middle of the right forehead. Patient stated that the last seen normal at around 8:30 PM yesterday and she is doing well and she did not have any sick contacts no fever and she did not complain of any worsening of her typical headaches. When the co director saw her according to the patient she did not have any jerking of the extremities that she was notified or any foaming around the mouth. Patient was sitting on a different chair compared to earlier in the morning per the . Patient left around 5 AM patient was sleeping comfortably. Also when the co director came around noon she noticed the kitchen was a mess. He stated that she does not have any history of seizures. The patient has been feels she probably either fell or hit her head as a result of having a small bleed but he is not sure. According the patient on route he was notified that she had respiratory arrest and in the emergency department according to the patient he was notified also she had another respiratory arrest. He stated that she has chronic lower back pain and she follows up with the pain specialist and is on chronic fentanyl patch, Percocet 1 4 times a day, gabapentin 300 mg 3 times daily and the medication has not been changed. He stated that she does have episodes that when she gets up she is unsteady walking and had some falls in the past and he is unsure about the falls and whether she passes out or not. He stated that he never witnessed does falls. Some of the work-up during this hospital visit consisted of: Temperature is 97.4 F on initial presentation. Respiratory rate is as low as 7 L CBC with differential is unremarkable Plasma lactic acid venous 1.2. Ammonia level is less than 9. Creatinine is 1.33, initial serum glucose is 106, sodium, AST ALT calcium is within normal limits Urine drug screen is positive for oxycodone and tricyclic antidepressant. Otherwise rest is nondetected and serum alcohol is less than 10 Urinalysis is unremarkable for any acute urinary tract infection. CT of the head and cervical spine is reported as no acute intracranial process. Small forehead soft tissue contusion. No acute facial bone fracture. No evidence of cervical spine fracture. Moderate multilevel degenerative disc disease. Grade 1 anterior listhesis of C4 on C5 and C7 on T1 favored to be degenerative. Personally reviewed the CT of the head and I agree there is no acute or subacute stroke. There is no mass effect. CT lumbar and thoracic spine I reviewed the report and it shows healing left lateral seventh and eighth rib fracture with callus formation. Additional h ealing left L1-L2 transverse process fracture with callus formation. Fracture lines are still visible. Moderate COPD change with minimal bibasilar atelectasis/consolidation. Review of Systems Limited. Past Medical History Past Medical History: CVA/TIA, Diabetes Mellitus, Hypertension, Thyroid Disorder Additional Past Medical History / Comment(s): CVA x2, back pain History of Any Multi-Drug Resistant Organisms: None Reported Past Surgical History: Appendectomy, Back Surgery, Hysterectomy, Joint Replacement Additional Past Surgical History / Comment(s): right hip replacement, Retina off left eye, back surgery 03/18/18 Past Anesthesia/Blood Transfusion Reactions: No Reported Reaction Past Psychological History: Bipolar Past Alcohol Use History: None Reported Past Drug Use History: None Reported - Past Family History Mother Family Medical History: Myocardial Infarction ([place]) Father Additional Family Medical History / Comment(s): brain aneurysm, at age 60 Medications and Allergies Home Medications Medication Instructions Recorded Confirmed Type Famotidine [Pepcid] 20 mg PO BID 10/24/17 09/18/24 History Oxybutynin Xl [Ditropan XL] 5 mg PO DAILY 10/24/17 09/18/24 History carBAMazepine [TEGretol] 200 mg PO QID 10/24/17 09/18/24 History fentaNYL 25MCG/HR PATCH [Duragesic 1 patch TRANSDERM Q72H 10/24/17 09/18/24 History 25MCG/HR] Gabapentin [Neurontin] 300 mg PO TID 01/10/18 09/18/24 History oxyCODONE-APAP 10-325MG [Percocet 1 tab PO Q12H PRN 01/10/18 09/18/24 History 10-325 mg] Clopidogrel [Plavix] 75 mg PO DAILY 04/03/18 09/18/24 History Baclofen [Lioresal] 10 mg PO QID 09/18/24 09/18/24 History Cholecalciferol [Vitamin D3 (125 125 mcg PO DAILY 09/18/24 09/18/24 History Mcg = 5000 Iu)] Levothyroxine Sodium [Synthroid] 150 mcg PO DAILY 09/18/24 09/18/24 History Montelukast [Singulair] 10 mg PO DAILY 09/18/24 09/18/24 History Multivitamin/Iron/Folic Acid 1 tab PO DAILY 09/18/24 09/18/24 History [Centrum Complete Multivit Tab] Pantoprazole [Protonix] 40 mg PO DAILY 09/18/24 09/18/24 History QUEtiapine [SEROquel] 50 mg PO QID 09/18/24 09/18/24 History Rosuvastatin Calcium [Crestor] 40 mg PO DAILY 09/18/24 09/18/24 History lisinopriL [Zestril] 10 mg PO DAILY 09/18/24 09/18/24 History Allergies Allergy/AdvReac Type Severity Reaction Status Date / Time iodine Allergy Unknown Verified 09/18/24 16:11 Tetracyclic Antidepressants Allergy Anaphylaxis Verified 09/18/24 16:11 aspirin AdvReac Nausea & Verified 09/18/24 16:11 Vomiting ibuprofen AdvReac Nausea & Verified 09/18/24 16:11 Vomiting & Diarrhea naproxen AdvReac Nausea & Verified 09/18/24 16:11 Vomiting & Diarrhea Physical Examination - Vital Signs Vital Signs: Vital Signs Temp Pulse Resp BP Pulse Ox FiO2 09/18/24 18:50 96.6 F L 09/18/24 18:00 96.3 F L 45 L 16 113/57 100 09/18/24 17:00 97.4 F L 46 L 14 134/62 100 09/18/24 16:41 50 09/18/24 16:15 45 L 16 130/62 100 09/18/24 16:14 47 L 09/18/24 16:00 97.2 F L 45 L 12 128/64 100 09/18/24 15:58 46 L 09/18/24 15:51 50 09/18/24 15:45 45 L 10 L 114/59 100 09/18/24 15:38 50 09/18/24 15:30 44 L 16 110/58 100 09/18/24 15:15 44 L 16 109/55 100 09/18/24 15:00 97.4 F L 44 L 16 109/53 100 09/18/24 14:45 47 L 16 94/51 100 09/18/24 14:20 49 L 13 115/51 100 09/18/24 14:05 97.4 F L 50 L 11 L 121/62 100 09/18/24 13:34 100 09/18/24 13:30 54 L 14 97/76 100 09/18/24 13:27 59 L 13 106/91 100 09/18/24 13:17 60 7 L 146/67 100 09/18/24 13:11 101 H 20 Intake and Output 09/18/24 09/18/24 09/18/24 06:59 14:59 22:59 Intake Total 2.177 Output Total 600 400 Balance -597.823 -400 Intake: Intake, IV Titration 2.177 Amount propofoL 1,000 mg In 2.177 Empty Bag 1 bag @ Titrate IV .Q0M ONE Rx#: [id number] Output: Urine 600 400 Uretheral ([place]iley) 600 400 Other: Weight 68.039 kg General: Lying in bed and does not appear in acute distress. HENT: Supple neck. Lung: Intubated on a ventilator. Neuro: Very Limited because of her overall condition and patient is on IV Propofol 45mcg/kg/min. I manually opened her eyes and primary gaze of right is midline. Right pupil is 2-3mm and reactive to light. 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 Has bruise over the right to mid frontal region. No facial weakness. No facial weakness from limitation. Motor: Limited. Has decreased tone throughout. Plantars: Mute. Results - Laboratory Findings CBC and BMP: 09/18/24 13:18 09/18/24 13:18 Abnormal Lab Findings: Abnormal Labs 09/18/24 09/18/24 09/18/24 13:18 14:33 15:20 ABG pO2 391 H ABG Total CO2 25 H ABG O2 Saturation >100.0 H BUN 28 H Creatinine 1.33 H Glucose 106 H POC Glucose (mg/dL) TSH Ur Specific [place] Ur Oxycodone Screen Detected H U Tricyclic Antidepress Detected H 09/18/24 09/18/24 09/18/24 16:37 17:02 17:11 ABG pO2 ABG Total CO2 ABG O2 Saturation BUN Creatinine Glucose POC Glucose (mg/dL) 122 H TSH <0.015 L Ur Specific [place] 1.050 H Ur Oxycodone Screen U Tricyclic Antidepress Assessment and Plan Assessment: This is a 69-year-old woman who was found today by the people around noon on the chair and was responsive. It seems the patient has a bruise over the forehead. According to she had some falls in the past when she gets up her balance is off. She does not have any history of seizure. She has chronic low back pain and is on multiple pain medication but they are chronic and nothing has been modified. Per the she was notified that she had respiratory arrest en route to the hospital by EMS as well as while in the ED. She is intu bated on the ventilator. Episode of unresponsiveness. Unsure if due to respiratory versus cardiac as well as cannot rule out seizure especially with her falls in the past. Metabolic encephalopathy Acute hypoxic respiratory failure patient is intubated on the ventilator Acute Kidney insufficiency History of TIAs History of falls of unknown exact etiology History of low back pain and had multiple surgeries and is on multiple pain medication and sees a pain specialist History of bipolar Plan: I spoke with the primary team recommended to start the patient on Keppra 1 g twice daily as a seizure prophylaxis for now and we will pursue with a routine EEG. Seizure precautions seizure pads 2D Echo was ordered and is pending Will defer the rest of the medical management to primary and other specialist. The plan is discussed with patient's who is at bedside and primary team. Thank you for the consultation. Time with Patient: Greater than 30
[2024-09-18 20:03] LABS: Glucose,Whole Blood 135 mg/dL (70-110)
[2024-09-18 21:09] LABS: T4, Free (Free Thyroxine) 1.81 ng/dL (0.78-2.19)
[2024-09-18 21:55] LABS: Basophils % (A) 0 %; Eosinophils % (A) 1 %; HCT 34.2 % (34.0-46.0); HGB 11.1 gm/dL (11.4-16.0); Lymphocytes # (A) 0.5 k/uL (1.0-4.8); Lymphocytes % (A) 6 %; MCH 30.5 pg (25.0-35.0); MCHC 32.6 g/dL (31.0-37.0); MCV 93.4 fL (80.0-100.0); Monocytes # (A) 0.2 k/uL (0-1.0); Monocytes % (A) 2 %; Neutrophils # (A) 6.5 k/uL (1.3-7.7); Neutrophils % (A) 91 %; Platelet Count 221 k/uL (150-450); RBC 3.66 m/uL (3.80-5.40); WBC 7.2 k/uL (3.8-10.6)
[2024-09-18] MEDS: CHLORHEXIDINE GLUCONATE 15 ML CUP MUCOUS MEM SCH (22:13)
[2024-09-18 22:19] LABS: African American GFR (CKD) >90 (>60 ml/min/1.73 sqM); Anion Gap 8 mmol/L; Blood Urea Nitrogen 24 mg/dL (7-17); Calcium 8.7 mg/dL (8.4-10.2); Carbon Dioxide 20 mmol/L (22-30); Chloride 112 mmol/L (98-107); Glucose 147 mg/dL (74-99); Non-African American GFR(CKD) 78 (>60 ml/min/1.73 sqM); Potassium 4.1 mmol/L (3.5-5.1); Sodium 140 mmol/L (137-145)
[2024-09-18] MEDS ORDERED: Potassium Replacement Protocol 1 EACH MISC MISCELLANE PRN (22:50)
[2024-09-18] MEDS ORDERED: POTASSIUM BICARBONATE/CIT AC 20 MEQ TABLET.EFF NG-TUBE SCH (23:00)
[2024-09-18] MEDS: HEPARIN SODIUM,PORCINE 5,000 UNIT/ML 1 ML VIAL SQ SCH (23:31)
[2024-09-18 23:50] LABS: Glucose,Whole Blood 134 mg/dL (70-110)
[2024-09-18] MEDS: MORPHINE SULFATE 2 MG/ML SYRINGE IVP PRN (23:52)
[2024-09-19 05:11] LABS: ABG Base Excess -0.7 mmol/L; ABG HCO3 25 mmol/L (21-25); ABG Oxygen Saturation 99.9 % (94-97); ABG PCO2 44 mmHg (35-45); ABG PH 7.36 (7.35-7.45); ABG PO2 183 mmHg (83-108); ABG TCO2 26 mmol/L (19-24); Allen Test Performed? Yes
[2024-09-19 06:03] LABS: Glucose,Whole Blood 82 mg/dL (70-110)
[2024-09-19 06:05] LABS: Basophils % (A) 0 %; Eosinophils % (A) 0 %; HCT 32.9 % (34.0-46.0); HCT 33.2 % (34.0-46.0); HGB 10.6 gm/dL (11.4-16.0); Lymphocytes # (A) 1.1 k/uL (1.0-4.8); Lymphocytes % (A) 14 %; Lymphocytes % (A) 15 %; MCH 29.6 pg (25.0-35.0); MCH 29.9 pg (25.0-35.0); MCHC 31.9 g/dL (31.0-37.0); MCHC 32.2 g/dL (31.0-37.0); MCV 92.7 fL (80.0-100.0); MCV 92.8 fL (80.0-100.0); Mean Platelet Volume 7.5; Mean Platelet Volume 7.6; Monocytes # (A) 0.4 k/uL (0-1.0); Monocytes # (A) 0.5 k/uL (0-1.0); Monocytes % (A) 6 %; Monocytes % (A) 7 %; Neutrophils # (A) 5.7 k/uL (1.3-7.7); Neutrophils # (A) 5.9 k/uL (1.3-7.7); Neutrophils % (A) 77 %; Neutrophils % (A) 78 %; Platelet Count 230 k/uL (150-450); Platelet Count 231 k/uL (150-450); RBC 3.55 m/uL (3.80-5.40); RBC 3.58 m/uL (3.80-5.40); RDW 13.3 % (11.5-15.5); RDW 13.5 % (11.5-15.5); WBC 7.4 k/uL (3.8-10.6); WBC 7.6 k/uL (3.8-10.6)
[2024-09-19] MEDS: LEVOTHYROXINE 75 MCG TAB PO SCH (06:20)
[2024-09-19] MEDS: PANTOPRAZOLE 40 MG TABLET PO SCH (06:21)
[2024-09-19 06:28] LABS: ALT 17 U/L (4-34); AST 36 U/L (14-36); African American GFR (CKD) >90 (>60 ml/min/1.73 sqM); Albumin 3.4 g/dL (3.5-5.0); Alkaline Phosphatase 74 U/L (38-126); Anion Gap 4 mmol/L; Blood Urea Nitrogen 25 mg/dL (7-17); Calcium 8.6 mg/dL (8.4-10.2); Carbon Dioxide 19 mmol/L (22-30); Chloride 116 mmol/L (98-107); Glucose 80 mg/dL (74-99); Magnesium 1.9 mg/dL (1.6-2.3); Non-African American GFR(CKD) 84 (>60 ml/min/1.73 sqM); Phosphorus 4.9 mg/dL (2.5-4.5); Potassium 4.3 mmol/L (3.5-5.1); Sodium 139 mmol/L (137-145); Total Bilirubin 0.7 mg/dL (0.2-1.3); Total Protein 6.1 g/dL (6.3-8.2)
[2024-09-19] MEDS ORDERED: Magnesium Replacement Protocol 1 EACH MISC MISCELLANE PRN (06:38)
[2024-09-19] MEDS: MAGNESIUM SULFATE-D5W PMX 1 GM in DEXTROSE/WATER 1 100ML.BAG IVPB ONE (06:51)
--- NOTE | 2024-09-19 07:13 | P.GSCN ---
History of Present Illness Consult date: 09/18/24 Reason for Consult: patient is a 69-year-old female presenting from home was found down by her . Last known normal GCS unknown. She presents as a level I with initial GCS of 3. Patient was given Narcan which increased her GCS to a 6/7. Trauma surgery was a bedside within 15 minutes. Review of Systems review of systems cannot be performed at this time given the patient's GCS Past Medical History Past Medical History: CVA/TIA, Diabetes Mellitus, Hypertension, Thyroid Disorder Additional Past Medical History / Comment(s): CVA x2, back pain History of Any Multi-Drug Resistant Organisms: None Reported Past Surgical History: Appendectomy, Back Surgery, Hysterectomy, Joint Replacement Additional Past Surgical History / Comment(s): right hip replacement, Retina off left eye, back surgery 03/18/18 Past Anesthesia/Blood Transfusion Reactions: No Reported Reaction Past Psychological History: Bipolar Past Alcohol Use History: None Reported Past Drug Use History: None Reported - Past Family History Mother Family Medical History: Myocardial Infarction ([place]) Father Additional Family Medical History / Comment(s): brain aneurysm, at age 60 Medications and Allergies Home Medications Medication Instructions Recorded Confirmed Type Famotidine [Pepcid] 20 mg PO BID 10/24/17 09/18/24 History Oxybutynin Xl [Ditropan XL] 5 mg PO DAILY 10/24/17 09/18/24 History carBAMazepine [TEGretol] 200 mg PO QID 10/24/17 09/18/24 History fentaNYL 25MCG/HR PATCH [Duragesic 1 patch TRANSDERM Q72H 10/24/17 09/18/24 History 25MCG/HR] Gabapentin [Neurontin] 300 mg PO TID 01/10/18 09/18/24 History oxyCODONE-APAP 10-325MG [Percocet 1 tab PO Q12H PRN 01/10/18 09/18/24 History 10-325 mg] Clopidogrel [Plavix] 75 mg PO DAILY 04/03/18 09/18/24 History Baclofen [Lioresal] 10 mg PO QID 09/18/24 09/18/24 History Cholecalciferol [Vitamin D3 (125 125 mcg PO DAILY 09/18/24 09/18/24 History Mcg = 5000 Iu)] Levothyroxine Sodium [Synthroid] 150 mcg PO DAILY 09/18/24 09/18/24 History Montelukast [Singulair] 10 mg PO DAILY 09/18/24 09/18/24 History Multivitamin/Iron/Folic Acid 1 tab PO DAILY 09/18/24 09/18/24 History [Centrum Complete Multivit Tab] Pantoprazole [Protonix] 40 mg PO DAILY 09/18/24 09/18/24 History QUEtiapine [SEROquel] 50 mg PO QID 09/18/24 09/18/24 History Rosuvastatin Calcium [Crestor] 40 mg PO DAILY 09/18/24 09/18/24 History lisinopriL [Zestril] 10 mg PO DAILY 09/18/24 09/18/24 History Allergies Allergy/AdvReac Type Severity Reaction Status Date / Time iodine Allergy Unknown Verified 09/18/24 16:11 Tetracyclic Antidepressants Allergy Anaphylaxis Verified 09/18/24 16:11 aspirin AdvReac Nausea & Verified 09/18/24 16:11 Vomiting ibuprofen AdvReac Nausea & Verified 09/18/24 16:11 Vomiting & Diarrhea naproxen AdvReac Nausea & Verified 09/18/24 16:11 Vomiting & Diarrhea Surgical - Exam Osteopathic Statement: *. No significant issues noted on an osteopathic structural exam other than those noted in the History and Physical/Consult. Vital Signs Pulse Resp 101 H 20 09/18/24 13:11 09/18/24 13:11 Gen. unresponsive HEENT small forehead laceration, eyes PERRLA, oral mucosa moist, no neck masses appreciated Cardiovascular tachycardic Pulmonary somewhat labored Thoracic demonstrates no obvious rib fractures or deformities Abdomen soft nontender nonrigid, distended Extremities demonstrate a palpable DP PT pulse bilaterally Back demonstrates multiple areas of pressure points indicating prolonged downtime Results - Labs 09/19/24 05:41 09/19/24 05:41 Abnormal Lab Results - Last 24 Hours (Table) 09/18/24 09/18/24 09/18/24 Range/Units 13:18 14:33 15:20 RBC (3.80-5.40) m/uL Hgb (11.4-16.0) gm/dL Hct (34.0-46.0) % Lymphocytes # (1.0-4.8) k/uL ABG pO2 391 H (83-108) mmHg ABG Total CO2 25 H (19-24) mmol/L ABG O2 Saturation >100.0 H (94-97) % Hemoglobin (11.4-16.0) gm/dL Chloride (98-107) mmol/L Carbon Dioxide (22-30) mmol/L BUN 28 H (7-17) mg/dL Creatinine 1.33 H (0.52-1.04) mg/dL Glucose 106 H (74-99) mg/dL POC Glucose (mg/dL) (70-110) mg/dL Phosphorus (2.5-4.5) mg/dL Total Protein (6.3-8.2) g/dL Albumin (3.5-5.0) g/dL TSH (0.465-4.680) mIU/L Ur Specific [place] (1.001-1.035) Ur Oxycodone Screen Detected H (NotDetected) Carbamazepine (4.0-12.0) UG/ML U Tricyclic Antidepress Detected H (NotDetected) 09/18/24 09/18/24 09/18/24 Range/Units 16:37 16:37 17:02 RBC (3.80-5.40) m/uL Hgb (11.4-16.0) gm/dL Hct (34.0-46.0) % Lymphocytes # (1.0-4.8) k/uL ABG pO2 (83-108) mmHg ABG Total CO2 (19-24) mmol/L ABG O2 Saturation (94-97) % Hemoglobin (11.4-16.0) gm/dL Chloride (98-107) mmol/L Carbon Dioxide (22-30) mmol/L BUN (7-17) mg/dL Creatinine (0.52-1.04) mg/dL Glucose (74-99) mg/dL POC Glucose (mg/dL) 122 H (70-110) mg/dL Phosphorus (2.5-4.5) mg/dL Total Protein (6.3-8.2) g/dL Albumin (3.5-5.0) g/dL TSH <0.015 L (0.465-4.680) mIU/L Ur Specific [place] (1.001-1.035) Ur Oxycodone Screen (NotDetected) Carbamazepine 13.8 H (4.0-12.0) UG/ML U Tricyclic Antidepress (NotDetected) 09/18/24 09/18/24 09/18/24 Range/Units 17:11 20:01 21:31 RBC 3.66 L (3.80-5.40) m/uL Hgb 11.1 L (11.4-16.0) gm/dL Hct (34.0-46.0) % Lymphocytes # 0.5 L (1.0-4.8) k/uL ABG pO2 (83-108) mmHg ABG Total CO2 (19-24) mmol/L ABG O2 Saturation (94-97) % Hemoglobin (11.4-16.0) gm/dL Chloride (98-107) mmol/L Carbon Dioxide (22-30) mmol/L BUN (7-17) mg/dL Creatinine (0.52-1.04) mg/dL Glucose (74-99) mg/dL POC Glucose (mg/dL) 135 H (70-110) mg/dL Phosphorus (2.5-4.5) mg/dL Total Protein (6.3-8.2) g/dL Albumin (3.5-5.0) g/dL TSH (0.465-4.680) mIU/L Ur Specific [place] 1.050 H (1.001-1.035) Ur Oxycodone Screen (NotDetected) Carbamazepine (4.0-12.0) UG/ML U Tricyclic Antidepress (NotDetected) 09/18/24 09/18/24 09/19/24 Range/Units 21:31 23:38 05:05 RBC (3.80-5.40) m/uL Hgb (11.4-16.0) gm/dL Hct (34.0-46.0) % Lymphocytes # (1.0-4.8) k/uL ABG pO2 183 H (83-108) mmHg ABG Total CO2 26 H (19-24) mmol/L ABG O2 Saturation 99.9 H (94-97) % Hemoglobin 10.6 L (11.4-16.0) gm/dL Chloride 112 H (98-107) mmol/L Carbon Dioxide 20 L (22-30) mmol/L BUN 24 H (7-17) mg/dL Creatinine (0.52-1.04) mg/dL Glucose 147 H (74-99) mg/dL POC Glucose (mg/dL) 134 H (70-110) mg/dL Phosphorus (2.5-4.5) mg/dL Total Protein (6.3-8.2) g/dL Albumin (3.5-5.0) g/dL TSH (0.465-4.680) mIU/L Ur Specific [place] (1.001-1.035) Ur Oxycodone Screen (NotDetected) Carbamazepine (4.0-12.0) UG/ML U Tricyclic Antidepress (NotDetected) 09/19/24 09/19/24 09/19/24 Range/Units 05:41 05:41 05:41 RBC 3.58 L 3.55 L (3.80-5.40) m/uL Hgb 10.6 L 10.6 L (11.4-16.0) gm/dL Hct 33.2 L 32.9 L (34.0-46.0) % Lymphocytes # (1.0-4.8) k/uL ABG pO2 (83-108) mmHg ABG Total CO2 (19-24) mmol/L ABG O2 Saturation (94-97) % Hemoglobin (11.4-16.0) gm/dL Chloride 116 H (98-107) mmol/L Carbon Dioxide 19 L (22-30) mmol/L BUN 25 H (7-17) mg/dL Creatinine (0.52-1.04) mg/dL Glucose (74-99) mg/dL POC Glucose (mg/dL) (70-110) mg/dL Phosphorus 4.9 H (2.5-4.5) mg/dL Total Protein 6.1 L (6.3-8.2) g/dL Albumin 3.4 L (3.5-5.0) g/dL TSH (0.465-4.680) mIU/L Ur Specific [place] (1.001-1.035) Ur Oxycodone Screen (NotDetected) Carbamazepine (4.0-12.0) UG/ML U Tricyclic Antidepress (NotDetected) Diabetes panel 09/18/24 09/18/24 09/19/24 Range/Units 13:18 21:31 05:41 Sodium 140 140 139 (137-145) mmol/L Potassium 3.9 4.1 4.3 (3.5-5.1) mmol/L Chloride 105 112 H 116 H (98-107) mmol/L Carbon Dioxide 27 20 L 19 L (22-30) mmol/L BUN 28 H 24 H 25 H (7-17) mg/dL Creatinine 1.33 H 0.78 0.74 (0.52-1.04) mg/dL Glucose 106 H 147 H 80 (74-99) mg/dL Calcium 9.1 8.7 8.6 (8.4-10.2) mg/dL AST 23 36 (14-36) U/L ALT 17 17 (4-34) U/L Alkaline Phosphatase 115 74 (38-126) U/L Total Protein 7.1 6.1 L (6.3-8.2) g/dL Albumin 4.4 3.4 L (3.5-5.0) g/dL Thyroid panel 09/18/24 Range/Units 16:37 TSH <0.015 L (0.465-4.680) mIU/L Calcium panel 09/18/24 09/18/24 09/19/24 Range/Units 13:18 21:31 05:41 Calcium 9.1 8.7 8.6 (8.4-10.2) mg/dL Phosphorus 4.9 H (2.5-4.5) mg/dL Albumin 4.4 3.4 L (3.5-5.0) g/dL Pituitary panel 09/18/24 09/18/24 09/18/24 Range/Units 13:18 16:37 21:31 Sodium 140 140 (137-145) mmol/L Potassium 3.9 4.1 (3.5-5.1) mmol/L Chloride 105 112 H (98-107) mmol/L Carbon Dioxide 27 20 L (22-30) mmol/L BUN 28 H 24 H (7-17) mg/dL Creatinine 1.33 H 0.78 (0.52-1.04) mg/dL Glucose 106 H 147 H (74-99) mg/dL Calcium 9.1 8.7 (8.4-10.2) mg/dL TSH <0.015 L (0.465-4.680) mIU/L 09/19/24 Range/Units 05:41 Sodium 139 (137-145) mmol/L Potassium 4.3 (3.5-5.1) mmol/L Chloride 116 H (98-107) mmol/L Carbon Dioxide 19 L (22-30) mmol/L BUN 25 H (7-17) mg/dL Creatinine 0.74 (0.52-1.04) mg/dL Glucose 80 (74-99) mg/dL Calcium 8.6 (8.4-10.2) mg/dL TSH (0.465-4.680) mIU/L Adrenal panel 09/18/24 09/18/24 09/19/24 Range/Units 13:18 21:31 05:41 Sodium 140 140 139 (137-145) mmol/L Potassium 3.9 4.1 4.3 (3.5-5.1) mmol/L Chloride 105 112 H 116 H (98-107) mmol/L Carbon Dioxide 27 20 L 19 L (22-30) mmol/L BUN 28 H 24 H 25 H (7-17) mg/dL Creatinine 1.33 H 0.78 0.74 (0.52-1.04) mg/dL Glucose 106 H 147 H 80 (74-99) mg/dL Calcium 9.1 8.7 8.6 (8.4-10.2) mg/dL Total Bilirubin 0.4 0.7 (0.2-1.3) mg/dL AST 23 36 (14-36) U/L ALT 17 17 (4-34) U/L Alkaline Phosphatase 115 74 (38-126) U/L Total Protein 7.1 6.1 L (6.3-8.2) g/dL Albumin 4.4 3.4 L (3.5-5.0) g/dL Assessment and Plan Assessment: 69 year female found down at home with unknown cause History of aspirin and Plavix Multiple strokes History of fentanyl patch review of all imaging including CT had, thorax, abdomen, recon demonstrates no acute injuries Recommend Narcan drip for now Patient currently intubated, reassess in a.m. No surgical intervention indicated at this time Time with Patient: Greater than 30
--- NOTE | 2024-09-19 07:43 | XR ---
EXAMINATION TYPE: XR chest 1V portable DATE OF EXAM: 09/19/2024 5:17 AM COMPARISON: 09/18/2024 CLINICAL INDICATION: Female, 69 years old with history of Tube placement, FINDINGS: Indwelling tubes and catheters are unchanged. No significant focal infiltrate seen. Stable appearance of the cardio-mediastinal structures at this time. IMPRESSION: 1. Stable portable chest. Clinical correlation and follow up until resolution is recommended. [facility], , 09/19/2024 7:41 AM
[2024-09-19] MEDS: CLOPIDOGREL 75 MG TAB PO SCH (08:07)
[2024-09-19] MEDS: ATORVASTATIN 80 MG TAB PO SCH (08:07)
[2024-09-19] MEDS: MONTELUKAST 10 MG TAB PO SCH (08:07)
--- NOTE | 2024-09-19 10:26 | P.PN ---
Subjective Progress Note Date: 09/19/24 SURGICAL PROGRESS NOTE CHIEF COMPLAINT: Altered mental status and fall HISTORY OF PRESENT ILLNESS: Patient in the ICU. She is being extubated this morning. She is awake and alert and following commands. Afebrile. Vital stable WBC is 7.4 Hgb 10.6 platelets 231 sodium 139 potassium 4.3 creatinine 0.74 PHYSICAL EXAM: VITAL SIGNS: Reviewed. GENERAL: in no acute distress. HEENT: Small forehead laceration. no sclera icterus. Extraocular movements grossly intact. Moist buccal mucosa. Head is normocephalic. ABDOMEN: Soft. Nondistended. Nontender. NEUROLOGIC: Awake and alert. Following simple commands ASSESSMENT: 69 year female found down at home with unknown cause History of aspirin and Plavix Multiple strokes History of fentanyl patch Small forehead soft tissue contusion noted on CT PLAN: -No surgical intervention planned -Repeat CT scan of brain ordered for follow-up on altered mental status and head contusion -Continue supportive care -Okay for regular diet when more awake and alert. Nursing staff will complete a nursing bedside swallow eval Physician Clinical Project Assistant note has been reviewed by physician. Signing provider agrees with the documented findings, assessment, and plan of care. Objective - Vital Signs Vital signs: Vital Signs Temp 98.7 F 09/19/24 08:00 Pulse 58 L 09/19/24 10:00 Resp 18 09/19/24 10:00 BP 118/49 09/19/24 10:00 Pulse Ox 100 09/19/24 10:00 FiO2 40 09/19/24 09:31 Intake & Output 09/18/24 09/19/24 09/19/24 18:59 06:59 18:59 Intake Total 2.177 735.525 232.148 Output Total 1000 395 565 Balance -997.823 340.525 -332.852 Weight 68.039 kg 65.8 kg Intake: IV 150 Sodium Chloride 0.9% 1, 150 000 ml @ 50 mls/hr IV . Q20H [facility] Rx#:[id number] Intake, IV Titration 2.177 735.525 82.148 Amount Sodium Chloride 0.9% 1, 500 50 000 ml @ 50 mls/hr IV . Q20H [facility] Rx#:[id number] Sodium Chloride 0.9% 1, 50 000 ml @ 999 mls/hr IV . Q1H1M STA Rx#:[id number] propofoL 1,000 mg In 2.177 Empty Bag 1 bag @ Titrate IV .Q0M ONE Rx#: [id number] propofoL 1,000 mg In 185.525 32.148 Empty Bag 1 bag @ Titrate IV .Q0M [facility] Rx#: [id number] Output: Gastric Drainage 200 Urine 1000 395 365 Uretheral (Bailey) 1000 Other: Voiding Method Indwelling Catheter Indwelling Catheter - Labs CBC & Chem 7: 09/19/24 05:41 09/20/24 02:34 Labs: Abnormal Lab Results - Last 24 Hours (Table) 09/18/24 09/18/24 09/18/24 Range/Units 13:18 14:33 15:20 RBC (3.80-5.40) m/uL Hgb (11.4-16.0) gm/dL Hct (34.0-46.0) % Lymphocytes # (1.0-4.8) k/uL ABG pO2 391 H (83-108) mmHg ABG Total CO2 25 H (19-24) mmol/L ABG O2 Saturation >100.0 H (94-97) % Hemoglobin (11.4-16.0) gm/dL Chloride (98-107) mmol/L Carbon Dioxide (22-30) mmol/L BUN 28 H (7-17) mg/dL Creatinine 1.33 H (0.52-1.04) mg/dL Glucose 106 H (74-99) mg/dL POC Glucose (mg/dL) (70-110) mg/dL Phosphorus (2.5-4.5) mg/dL Total Protein (6.3-8.2) g/dL Albumin (3.5-5.0) g/dL TSH (0.465-4.680) mIU/L Ur Specific [place] (1.001-1.035) Ur Oxycodone Screen Detected H (NotDetected) Carbamazepine (4.0-12.0) UG/ML U Tricyclic Antidepress Detected H (NotDetected) 09/18/24 09/18/24 09/18/24 Range/Units 16:37 16:37 17:02 RBC (3.80-5.40) m/uL Hgb (11.4-16.0) gm/dL Hct (34.0-46.0) % Lymphocytes # (1.0-4.8) k/uL ABG pO2 (83-108) mmHg ABG Total CO2 (19-24) mmol/L ABG O2 Saturation (94-97) % Hemoglobin (11.4-16.0) gm/dL Chloride (98-107) mmol/L Carbon Dioxide (22-30) mmol/L BUN (7-17) mg/dL Creatinine (0.52-1.04) mg/dL Glucose (74-99) mg/dL POC Glucose (mg/dL) 122 H (70-110) mg/dL Phosphorus (2.5-4.5) mg/dL Total Protein (6.3-8.2) g/dL Albumin (3.5-5.0) g/dL TSH <0.015 L (0.465-4.680) mIU/L Ur Specific [place] (1.001-1.035) Ur Oxycodone Screen (NotDetected) Carbamazepine 13.8 H (4.0-12.0) UG/ML U Tricyclic Antidepress (NotDetected) 09/18/24 09/18/24 09/18/24 Range/Units 17:11 20:01 21:31 RBC 3.66 L (3.80-5.40) m/uL Hgb 11.1 L (11.4-16.0) gm/dL Hct (34.0-46.0) % Lymphocytes # 0.5 L (1.0-4.8) k/uL ABG pO2 (83-108) mmHg ABG Total CO2 (19-24) mmol/L ABG O2 Saturation (94-97) % Hemoglobin (11.4-16.0) gm/dL Chloride (98-107) mmol/L Carbon Dioxide (22-30) mmol/L BUN (7-17) mg/dL Creatinine (0.52-1.04) mg/dL Glucose (74-99) mg/dL POC Glucose (mg/dL) 135 H (70-110) mg/dL Phosphorus (2.5-4.5) mg/dL Total Protein (6.3-8.2) g/dL Albumin (3.5-5.0) g/dL TSH (0.465-4.680) mIU/L Ur Specific [place] 1.050 H (1.001-1.035) Ur Oxycodone Screen (NotDetected) Carbamazepine (4.0-12.0) UG/ML U Tricyclic Antidepress (NotDetected) 09/18/24 09/18/24 09/19/24 Range/Units 21:31 23:38 05:05 RBC (3.80-5.40) m/uL Hgb (11.4-16.0) gm/dL Hct (34.0-46.0) % Lymphocytes # (1.0-4.8) k/uL ABG pO2 183 H (83-108) mmHg ABG Total CO2 26 H (19-24) mmol/L ABG O2 Saturation 99.9 H (94-97) % Hemoglobin 10.6 L (11.4-16.0) gm/dL Chloride 112 H (98-107) mmol/L Carbon Dioxide 20 L (22-30) mmol/L BUN 24 H (7-17) mg/dL Creatinine (0.52-1.04) mg/dL Glucose 147 H (74-99) mg/dL POC Glucose (mg/dL) 134 H (70-110) mg/dL Phosphorus (2.5-4.5) mg/dL Total Protein (6.3-8.2) g/dL Albumin (3.5-5.0) g/dL TSH (0.465-4.680) mIU/L Ur Specific [place] (1.001-1.035) Ur Oxycodone Screen (NotDetected) Carbamazepine (4.0-12.0) UG/ML U Tricyclic Antidepress (NotDetected) 09/19/24 09/19/24 09/19/24 Range/Units 05:41 05:41 05:41 RBC 3.58 L 3.55 L (3.80-5.40) m/uL Hgb 10.6 L 10.6 L (11.4-16.0) gm/dL Hct 33.2 L 32.9 L (34.0-46.0) % Lymphocytes # (1.0-4.8) k/uL ABG pO2 (83-108) mmHg ABG Total CO2 (19-24) mmol/L ABG O2 Saturation (94-97) % Hemoglobin (11.4-16.0) gm/dL Chloride 116 H (98-107) mmol/L Carbon Dioxide 19 L (22-30) mmol/L BUN 25 H (7-17) mg/dL Creatinine (0.52-1.04) mg/dL Glucose (74-99) mg/dL POC Glucose (mg/dL) (70-110) mg/dL Phosphorus 4.9 H (2.5-4.5) mg/dL Total Protein 6.1 L (6.3-8.2) g/dL Albumin 3.4 L (3.5-5.0) g/dL TSH (0.465-4.680) mIU/L Ur Specific [place] (1.001-1.035) Ur Oxycodone Screen (NotDetected) Carbamazepine (4.0-12.0) UG/ML U Tricyclic Antidepress (NotDetected) Assessment and Plan Assessment: 69 year female found down at home with unknown cause History of aspirin and Plavix Multiple strokes History of fentanyl patch Small forehead soft tissue contusion noted on CT PLAN: -No surgical intervention planned -Repeat CT scan of brain ordered for follow-up on altered mental status and head contusion -Continue supportive care -Okay for regular diet when more awake and alert. Nursing staff will complete a nursing bedside swallow eval Time with Patient: Less than 30
--- NOTE | 2024-09-19 11:46 | P.CNPUL ---
History of Present Illness Consult date: 09/19/24 History of present illness: Yasmin Cordova 69 year old F with of Bipolar disorder, hypertension, diabetes mellitus, hypothyroidism, history of CVA/TIA, hyperlipidemia presents with altered mental status. Per report in chart, she was last seen normal at 5AM, sleeping comfortably when the left for work. 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 EMS was called. While in ER she began to have hypoxic respiratory distress and was subsequently intubated and began on propofol. Initial lab findings were unremarkable bedside BUN 28, Cr 1.33, glu 106. Lactic acid 1.2. Troponin < 0.012. EKG sinus rhythm with no ST elevations depression or T wave abnormalities, RBBB pattern. UDS was positive for oxycodone and TCA carbamazepine elevated 13.8, otherwise unremarkable. Today patient was seen in the ICU and was initially intubated and sedated on propofol. ABG 183/44/7.36. Weaning parameters were assessed and decision was made to extubate. Patient is now on nasal cannula 4 L. IV normal saline at 50 ml/hr. Chest x-ray with no acute process. CT head and neck with some degenerative disc disease but otherwise no acute intracranial process or fracture. CT chest with no acute process however revealed several healing rib fractures and with minimal bibasilar atelectasis. Today's labs WBC 7.4, hemoglobin 10.6, sodium 139, potassium 4.3, bicarb 19, BUN 25, creatinine 0.74. Patient continues to be lethargic but is otherwise in stable condition. She will continue to be monitored in the ICU. Review of Systems ROS unobtainable: due to mental status Past Medical History Past Medical History: CVA/TIA, Diabetes Mellitus, Hypertension, Thyroid Disorder Additional Past Medical History / Comment(s): CVA x2, back pain History of Any Multi-Drug Resistant Organisms: None Reported Past Surgical History: Appendectomy, Back Surgery, Hysterectomy, Joint Replacement Additional Past Surgical History / Comment(s): right hip replacement, Retina off left eye, back surgery 03/18/18 Past Anesthesia/Blood Transfusion Reactions: No Reported Reaction Past Psychological History: Bipolar Past Alcohol Use History: None Reported Past Drug Use History: None Reported - Past Family History Mother Family Medical History: Myocardial Infarction (VT) Father Additional Family Medical History / Comment(s): brain aneurysm, at age 60 Medications and Allergies Home Medications Medication Instructions Recorded Confirmed Type Famotidine [Pepcid] 20 mg PO BID 10/24/17 09/18/24 History Oxybutynin Xl [Ditropan XL] 5 mg PO DAILY 10/24/17 09/18/24 History carBAMazepine [TEGretol] 200 mg PO QID 10/24/17 09/18/24 History fentaNYL 25MCG/HR PATCH [Duragesic 1 patch TRANSDERM Q72H 10/24/17 09/18/24 History 25MCG/HR] Gabapentin [Neurontin] 300 mg PO TID 01/10/18 09/18/24 History oxyCODONE-APAP 10-325MG [Percocet 1 tab PO Q12H PRN 01/10/18 09/18/24 History 10-325 mg] Clopidogrel [Plavix] 75 mg PO DAILY 04/03/18 09/18/24 History Baclofen [Lioresal] 10 mg PO QID 09/18/24 09/18/24 History Cholecalciferol [Vitamin D3 (125 125 mcg PO DAILY 09/18/24 09/18/24 History Mcg = 5000 Iu)] Levothyroxine Sodium [Synthroid] 150 mcg PO DAILY 09/18/24 09/18/24 History Montelukast [Singulair] 10 mg PO DAILY 09/18/24 09/18/24 History Multivitamin/Iron/Folic Acid 1 tab PO DAILY 09/18/24 09/18/24 History [Centrum Complete Multivit Tab] Pantoprazole [Protonix] 40 mg PO DAILY 09/18/24 09/18/24 History QUEtiapine [SEROquel] 50 mg PO QID 09/18/24 09/18/24 History Rosuvastatin Calcium [Crestor] 40 mg PO DAILY 09/18/24 09/18/24 History lisinopriL [Zestril] 10 mg PO DAILY 09/18/24 09/18/24 History Allergies Allergy/AdvReac Type Severity Reaction Status Date / Time iodine Allergy Unknown Verified 09/18/24 16:11 Tetracyclic Antidepressants Allergy Anaphylaxis Verified 09/18/24 16:11 aspirin AdvReac Nausea & Verified 09/18/24 16:11 Vomiting ibuprofen AdvReac Nausea & Verified 09/18/24 16:11 Vomiting & Diarrhea naproxen AdvReac Nausea & Verified 09/18/24 16:11 Vomiting & Diarrhea Physical Exam Vitals: Vital Signs Temp Pulse Resp BP Pulse Ox FiO2 09/19/24 10:00 58 L 18 118/49 100 09/19/24 09:31 40 09/19/24 09:00 68 21 121/52 100 40 09/19/24 08:22 40 09/19/24 08:00 98.7 F 46 L 16 105/48 100 40 09/19/24 07:00 64 12 118/48 100 09/19/24 06:50 61 17 100 09/19/24 06:40 45 L 16 118/55 100 09/19/24 06:30 58 L 16 100 09/19/24 06:20 64 15 120/52 100 09/19/24 06:10 59 L 16 117/54 100 09/19/24 06:00 52 L 16 115/49 100 09/19/24 05:50 47 L 16 100 09/19/24 05:40 47 L 16 109/51 100 09/19/24 05:31 40 09/19/24 05:30 49 L 16 100/38 100 09/19/24 05:20 64 16 99 09/19/24 05:10 65 12 111/49 99 09/19/24 05:00 45 L 16 104/48 99 09/19/24 04:50 47 L 16 104/48 100 09/19/24 04:40 46 L 16 106/49 99 09/19/24 04:30 46 L 16 100 09/19/24 04:20 51 L 16 104/47 99 09/19/24 04:10 50 L 16 97/44 99 09/19/24 04:00 97.8 F 48 L 16 98/44 100 50 09/19/24 03:50 44 L 16 100 09/19/24 03:41 50 09/19/24 03:40 48 L 16 93/42 100 09/19/24 03:30 48 L 16 96/42 100 09/19/24 03:20 49 L 16 100 09/19/24 03:10 50 L 16 105/45 100 09/19/24 03:00 52 L 16 98/44 100 09/19/24 02:50 49 L 16 99 09/19/24 02:40 50 L 15 96/41 100 09/19/24 02:30 50 L 16 92/40 100 09/19/24 02:20 52 L 16 100 09/19/24 02:10 56 L 16 108/46 100 09/19/24 02:00 55 L 16 104/44 100 09/19/24 01:50 59 L 17 100 09/19/24 01:40 53 L 16 98/42 99 09/19/24 01:30 52 L 16 100 09/19/24 01:20 53 L 16 99 09/19/24 01:10 53 L 16 99 09/19/24 01:00 55 L 17 83/37 99 09/19/24 00:50 54 L 17 99 09/19/24 00:40 56 L 16 99 09/19/24 00:30 57 L 16 97 09/19/24 00:20 60 17 89/39 99 50 09/19/24 00:14 63 16 88/39 99 09/19/24 00:10 64 16 95/40 98 09/19/24 00:00 97.7 F 69 16 122/56 98 50 09/18/24 23:50 92 15 99 09/18/24 23:40 71 17 110/45 99 09/18/24 23:30 75 16 123/52 98 09/18/24 23:20 66 16 99/43 98 09/18/24 23:10 64 17 94/39 98 09/18/24 23:00 66 18 97/39 98 09/18/24 22:50 67 18 98 09/18/24 22:40 68 19 102/40 98 09/18/24 22:30 76 19 108/41 98 09/18/24 22:20 81 20 101/46 98 09/18/24 22:10 59 L 16 99/44 98 09/18/24 22:00 60 16 98 09/18/24 21:50 61 16 98 09/18/24 21:40 59 L 16 98/47 99 09/18/24 21:30 56 L 16 96/50 99 09/18/24 21:20 60 16 98 09/18/24 21:10 56 L 16 99 09/18/24 21:00 56 L 16 98/53 97 09/18/24 20:50 55 L 16 98/53 99 09/18/24 20:40 54 L 16 101/60 100 09/18/24 20:30 53 L 16 99/46 99 09/18/24 20:20 60 16 99/46 100 09/18/24 20:10 49 L 115/55 100 09/18/24 20:08 50 09/18/24 20:07 49 L 09/18/24 20:00 94.0 F L 47 L 100 50 09/18/24 18:50 96.6 F L 09/18/24 18:00 96.3 F L 45 L 16 113/57 100 09/18/24 17:00 97.4 F L 46 L 14 134/62 100 09/18/24 16:41 50 09/18/24 16:15 45 L 16 130/62 100 09/18/24 16:14 47 L 09/18/24 16:00 97.2 F L 45 L 12 128/64 100 09/18/24 15:58 46 L 09/18/24 15:51 50 09/18/24 15:45 45 L 10 L 114/59 100 09/18/24 15:38 50 09/18/24 15:30 44 L 16 110/58 100 09/18/24 15:15 44 L 16 109/55 100 09/18/24 15:00 97.4 F L 44 L 16 109/53 100 09/18/24 14:45 47 L 16 94/51 100 09/18/24 14:20 49 L 13 115/51 100 09/18/24 14:05 97.4 F L 50 L 11 L 121/62 100 09/18/24 13:34 100 09/18/24 13:30 54 L 14 97/76 100 09/18/24 13:27 59 L 13 106/91 100 09/18/24 13:17 60 7 L 146/67 100 09/18/24 13:11 101 H 20 Intake and Output 09/18/24 09/19/24 09/19/24 22:59 06:59 14:59 Intake Total 219.332 516.193 232.148 Output Total 500 295 565 Balance -280.668 221.193 -332.852 Intake: IV 150 Sodium Chloride 0.9% 1, 150 000 ml @ 50 mls/hr IV . Q20H [facility] Rx#:[id number] Intake, IV Titration 219.332 516.193 82.148 Amount Sodium Chloride 0.9% 1, 150 350 50 000 ml @ 50 mls/hr IV . Q20H [facility] Rx#:[id number] Sodium Chloride 0.9% 1, 50 000 ml @ 999 mls/hr IV . Q1H1M STA Rx#:[id number] propofoL 1,000 mg In 69.332 116.193 32.148 Empty Bag 1 bag @ Titrate IV .Q0M [facility] Rx#: [id number] Output: Gastric Drainage 200 Urine 500 295 365 Uretheral (Bailey) 400 Other: Voiding Method Indwelling Catheter Indwelling Catheter Indwelling Catheter Weight 68.039 kg 65.8 kg GENERAL: Not in any acute distress. Well developed, well nourished. On nasal cannula 3L HEENT: traumatic contusion R eyebrow otherwise, unable to further assess CARDIOVASCULAR: S1 and S2 present. No murmurs, rubs, or gallops. PULMONARY: Chest is clear to auscultation, no wheezing or crackles. ABDOMEN: Soft, nontender, nondistended, normoactive bowel sounds. No palpable organomegaly. MUSCULOSKELETAL: No joint swelling or deformity. EXTREMITIES: No cyanosis, clubbing, or pedal edema. NEUROLOGICAL: poor effort, however moving all extremities PSYCH: The patient is alert and oriented x2, to person and place SKIN: contusion R eyebrow. No rashes. no petechiae. Results - Laboratory Findings CBC and BMP: 09/19/24 05:41 09/19/24 05:41 ABG ABG pH 7.36 (7.35-7.45) 09/19/24 05:05 ABG pCO2 44 mmHg (35-45) 09/19/24 05:05 ABG pO2 183 mmHg (83-108) H 09/19/24 05:05 ABG O2 Saturation 99.9 % (94-97) H 09/19/24 05:05 PT/INR, D-dimer PT 10.2 sec (10.0-12.5) 09/18/24 13:18 INR 0.9 (<1.2) 09/18/24 13:18 Abnormal lab findings: Abnormal Labs 09/18/24 09/18/24 09/18/24 13:18 14:33 15:20 RBC Hgb Hct Lymphocytes # ABG pO2 391 H ABG Total CO2 25 H ABG O2 Saturation >100.0 H Hemoglobin Chloride Carbon Dioxide BUN 28 H Creatinine 1.33 H Glucose 106 H POC Glucose (mg/dL) Phosphorus Total Protein Albumin TSH Ur Specific [place] Ur Oxycodone Screen Detected H Carbamazepine U Tricyclic Antidepress Detected H 09/18/24 09/18/24 09/18/24 16:37 16:37 17:02 RBC Hgb Hct Lymphocytes # ABG pO2 ABG Total CO2 ABG O2 Saturation Hemoglobin Chloride Carbon Dioxide BUN Creatinine Glucose POC Glucose (mg/dL) 122 H Phosphorus Total Protein Albumin TSH <0.015 L Ur Specific [place] Ur Oxycodone Screen Carbamazepine 13.8 H U Tricyclic Antidepress 09/18/24 09/18/24 09/18/24 17:11 20:01 21:31 RBC 3.66 L Hgb 11.1 L Hct Lymphocytes # 0.5 L ABG pO2 ABG Total CO2 ABG O2 Saturation Hemoglobin Chloride Carbon Dioxide BUN Creatinine Glucose POC Glucose (mg/dL) 135 H Phosphorus Total Protein Albumin TSH Ur Specific [place] 1.050 H Ur Oxycodone Screen Carbamazepine U Tricyclic Antidepress 09/18/24 09/18/24 09/19/24 21:31 23:38 05:05 RBC Hgb Hct Lymphocytes # ABG pO2 183 H ABG Total CO2 26 H ABG O2 Saturation 99.9 H Hemoglobin 10.6 L Chloride 112 H Carbon Dioxide 20 L BUN 24 H Creatinine Glucose 147 H POC Glucose (mg/dL) 134 H Phosphorus Total Protein Albumin TSH Ur Specific [place] Ur Oxycodone Screen Carbamazepine U Tricyclic Antidepress 09/19/24 09/19/24 09/19/24 05:41 05:41 05:41 RBC 3.58 L 3.55 L Hgb 10.6 L 10.6 L Hct 33.2 L 32.9 L Lymphocytes # ABG pO2 ABG Total CO2 ABG O2 Saturation Hemoglobin Chloride 116 H Carbon Dioxide 19 L BUN 25 H Creatinine Glucose POC Glucose (mg/dL) Phosphorus 4.9 H Total Protein 6.1 L Albumin 3.4 L TSH Ur Specific [place] Ur Oxycodone Screen Carbamazepine U Tricyclic Antidepress Assessment and Plan Assessment: Acute metabolic encephalopathy, extubated on 09/19/2024, improved Acute hypoxic respiratory failure JEAN versus CKD Bipolar disorder Hypertension Diabetes mellitus Hypothyroidism History of CVA/TIA Plan: Weaning parameters assessed and extubated on 09/19/2024, now on NC 3 L Holding home Tegretol, Fentanyl, Gabapentin, Baclofen and Seroquel Telemetry monitoring. Seizure and Fall precautions. Advanced neurochecks. Awaiting EEG, echo Neurology following, recommending Keppra 1 g twice daily for seizure prophylaxis Continue NS at 50 mL/h Holding Tegetrol and Seroquel Holding home lisinopril Continue Accu-Cheks Continue Synthroid Continue Plavix and Crestor Continue DVT and GI prophylaxis Patient is currently hemodynamically stable and a full code, likely can be downgraded to medical floor tomorrow Patient will continue to be monitored in ICU for now
[2024-09-19 11:47] LABS: Glucose,Whole Blood 90 mg/dL (70-110)
--- NOTE | 2024-09-19 11:48 | CT ---
EXAMINATION TYPE: CT brain wo con CT DLP: 1227.4 mGycm, Automated exposure control for dose reduction was used. DATE OF EXAM: 09/19/2024 11:42 AM COMPARISON: CT brain C-spine facial bones 09/18/2024 CLINICAL INDICATION:Female, 69 years old with history of Fall, altered mental status, Fall, AMS TECHNIQUE: Brain: Multiple axial CT images of the brain were obtained without IV contrast. . Coronal and sagitta l reformats reviewed. FINDINGS: Brain: Extra-axial spaces: No abnormal extra-axial fluid collections. Ventricular system: Within normal limits Cerebral parenchyma: No acute intraparenchymal hemorrhage or mass effect. The lopez-white junction is well differentiated. Cerebellum: Unremarkable. Mass effect: No evidence of midline shift. Intracranial vasculature: Atherosclerotic calcifications of the intracranial vessels. Soft tissues: Redemonstration of small for a soft tissue contusion. Calvarium/osseous structures: No depressed skull fracture. Paranasal sinuses and mastoid air cells: Mild scattered paranasal sinus disease. Visualized orbits: No acute traumatic process to the orbital contents. Left aphakia with scleral weems le. Other: IMPRESSION: 1. No acute intracranial process. 2. Redemonstration of small forehead soft tissue contusion. [facility], , 09/19/2024 11:46 AM
[2024-09-19] MEDS ORDERED: HYDROCORTISONE SUCCINATE 100 MG/2 ML VIAL IV SCH (13:15)
--- NOTE | 2024-09-19 13:38 | P.PN ---
Subjective Progress Note Date: 09/19/24 Following up with the patient and patient condition is improving. She was extubated. According to the nurse she is following simple commands. Patient has bradycardia. Patient was drowsy but was able to wake up all to voice. She feels she is doing okay. Objective - Vital Signs Vital signs: Vital Signs Temp 97.8 F 09/19/24 12:00 Pulse 64 09/19/24 12:00 Resp 16 09/19/24 12:00 BP 132/60 09/19/24 12:00 Pulse Ox 99 09/19/24 12:00 FiO2 40 09/19/24 09:31 Intake & Output 09/18/24 09/19/24 09/19/24 18:59 06:59 18:59 Intake Total 2.177 735.525 382.148 Output Total 1000 395 800 Balance -997.823 340.525 -417.852 Weight 68.039 kg 65.8 kg Intake: IV 300 Sodium Chloride 0.9% 1, 300 000 ml @ 50 mls/hr IV . Q20H [facility] Rx#:[id number] Intake, IV Titration 2.177 735.525 82.148 Amount Sodium Chloride 0.9% 1, 500 50 000 ml @ 50 mls/hr IV . Q20H [facility]ST[facility] Rx#:[id number] Sodium Chloride 0.9% 1, 50 000 ml @ 999 mls/hr IV . Q1H1M STA Rx#:[id number] propofoL 1,000 mg In 2.177 Empty Bag 1 bag @ Titrate IV .Q0M ONE Rx#: [id number] propofoL 1,000 mg In 185.525 32.148 Empty Bag 1 bag @ Titrate IV .Q0M CHRISTIN Rx#: [id number] Output: Gastric Drainage 200 Urine 1000 395 600 Uretheral (Bailey) 1000 Other: Voiding Method Indwelling Catheter Indwelling Catheter - Exam General: Lying in bed and is not in acute distress. Neuro: Limited. Patient is drowsy but is awake able to voice. She is oriented to self. She correctly named her 's name correctly. She is following simple commands. No facial weakness. Was able to stick her tongue out without any difficulty moving [id number]. Motor: Limited in assessment in individual muscle strength. But was able to lift bilateral upper extremities above gravity symmetrically. Some of the work-up during this hospital visit consisted of: Temperature is 97.4 F on initial presentation. Respiratory rate is as low as 7 L CBC with differential is unremarkable Plasma lactic acid venous 1.2. Ammonia level is less than 9. TSH: <0.015 and free T4: 1.81 B12: 518, serum folate: 25.50 Creatinine is 1.33, initial serum glucose is 106, sodium, AST ALT calcium is within normal limits Urine drug screen is positive for oxycodone and tricyclic antidepressant. Otherwise rest is nondetected and serum alcohol is less than 10 Urinalysis is unremarkable for any acute urinary tract infection. CT of the head and cervical spine is reported as no acute intracranial process. Small forehead soft tissue contusion. No acute facial bone fracture. No evidence of cervical spine fracture. Moderate multilevel degenerative disc disease. Grade 1 anterior listhesis of C4 on C5 and C7 on T1 favored to be degenerative. Personally reviewed the CT of the head and I agree there is no acute or subacute stroke. There is no mass effect. CT lumbar and thoracic spine I reviewed the report and it shows heal - Labs CBC & Chem 7: 09/19/24 05:41 09/19/24 05:41 Labs: Abnormal Lab Results - Last 24 Hours (Table) 09/18/24 09/18/24 09/18/24 Range/Units 13:18 14:33 15:20 RBC (3.80-5.40) m/uL Hgb (11.4-16.0) gm/dL Hct (34.0-46.0) % Lymphocytes # (1.0-4.8) k/uL ABG pO2 391 H (83-108) mmHg ABG Total CO2 25 H (19-24) mmol/L ABG O2 Saturation >100.0 H (94-97) % Hemoglobin (11.4-16.0) gm/dL Chloride (98-107) mmol/L Carbon Dioxide (22-30) mmol/L BUN 28 H (7-17) mg/dL Creatinine 1.33 H (0.52-1.04) mg/dL Glucose 106 H (74-99) mg/dL POC Glucose (mg/dL) (70-110) mg/dL Phosphorus (2.5-4.5) mg/dL Total Protein (6.3-8.2) g/dL Albumin (3.5-5.0) g/dL TSH (0.465-4.680) mIU/L Ur Specific [place] (1.001-1.035) Ur Oxycodone Screen Detected H (NotDetected) Carbamazepine (4.0-12.0) UG/ML U Tricyclic Antidepress Detected H (NotDetected) 09/18/24 09/18/24 09/18/24 Range/Units 16:37 16:37 17:02 RBC (3.80-5.40) m/uL Hgb (11.4-16.0) gm/dL Hct (34.0-46.0) % Lymphocytes # (1.0-4.8) k/uL ABG pO2 (83-108) mmHg ABG Total CO2 (19-24) mmol/L ABG O2 Saturation (94-97) % Hemoglobin (11.4-16.0) gm/dL Chloride (98-107) mmol/L Carbon Dioxide (22-30) mmol/L BUN (7-17) mg/dL Creatinine (0.52-1.04) mg/dL Glucose (74-99) mg/dL POC Glucose (mg/dL) 122 H (70-110) mg/dL Phosphorus (2.5-4.5) mg/dL Total Protein (6.3-8.2) g/dL Albumin (3.5-5.0) g/dL TSH <0.015 L (0.465-4.680) mIU/L Ur Specific [place] (1.001-1.035) Ur Oxycodone Screen (NotDetected) Carbamazepine 13.8 H (4.0-12.0) UG/ML U Tricyclic Antidepress (NotDetected) 09/18/24 09/18/24 09/18/24 Range/Units 17:11 20:01 21:31 RBC 3.66 L (3.80-5.40) m/uL Hgb 11.1 L (11.4-16.0) gm/dL Hct (34.0-46.0) % Lymphocytes # 0.5 L (1.0-4.8) k/uL ABG pO2 (83-108) mmHg ABG Total CO2 (19-24) mmol/L ABG O2 Saturation (94-97) % Hemoglobin (11.4-16.0) gm/dL Chloride (98-107) mmol/L Carbon Dioxide (22-30) mmol/L BUN (7-17) mg/dL Creatinine (0.52-1.04) mg/dL Glucose (74-99) mg/dL POC Glucose (mg/dL) 135 H (70-110) mg/dL Phosphorus (2.5-4.5) mg/dL Total Protein (6.3-8.2) g/dL Albumin (3.5-5.0) g/dL TSH (0.465-4.680) mIU/L Ur Specific [place] 1.050 H (1.001-1.035) Ur Oxycodone Screen (NotDetected) Carbamazepine (4.0-12.0) UG/ML U Tricyclic Antidepress (NotDetected) 09/18/24 09/18/24 09/19/24 Range/Units 21:31 23:38 05:05 RBC (3.80-5.40) m/uL Hgb (11.4-16.0) gm/dL Hct (34.0-46.0) % Lymphocytes # (1.0-4.8) k/uL ABG pO2 183 H (83-108) mmHg ABG Total CO2 26 H (19-24) mmol/L ABG O2 Saturation 99.9 H (94-97) % Hemoglobin 10.6 L (11.4-16.0) gm/dL Chloride 112 H (98-107) mmol/L Carbon Dioxide 20 L (22-30) mmol/L BUN 24 H (7-17) mg/dL Creatinine (0.52-1.04) mg/dL Glucose 147 H (74-99) mg/dL POC Glucose (mg/dL) 134 H (70-110) mg/dL Phosphorus (2.5-4.5) mg/dL Total Protein (6.3-8.2) g/dL Albumin (3.5-5.0) g/dL TSH (0.465-4.680) mIU/L Ur Specific [place] (1.001-1.035) Ur Oxycodone Screen (NotDetected) Carbamazepine (4.0-12.0) UG/ML U Tricyclic Antidepress (NotDetected) 09/19/24 09/19/2409/19/24 Range/Units 05:41 05:41 05:41 RBC 3.58 L 3.55 L (3.80-5.40) m/uL Hgb 10.6 L 10.6 L (11.4-16.0) gm/dL Hct 33.2 L 32.9 L (34.0-46.0) % Lymphocytes # (1.0-4.8) k/uL ABG pO2 (83-108) mmHg ABG Total CO2 (19-24) mmol/L ABG O2 Saturation (94-97) % Hemoglobin (11.4-16.0) gm/dL Chloride 116 H (98-107) mmol/L Carbon Dioxide 19 L (22-30) mmol/L BUN 25 H (7-17) mg/dL Creatinine (0.52-1.04) mg/dL Glucose (74-99) mg/dL POC Glucose (mg/dL) (70-110) mg/dL Phosphorus 4.9 H (2.5-4.5) mg/dL Total Protein 6.1 L (6.3-8.2) g/dL Albumin 3.4 L (3.5-5.0) g/dL TSH (0.465-4.680) mIU/L Ur Specific [place] (1.001-1.035) Ur Oxycodone Screen (NotDetected) Carbamazepine (4.0-12.0) UG/ML U Tricyclic Antidepress (NotDetected) Assessment and Plan Assessment: This is a 69-year-old woman who was found today by the people around noon on the chair and was responsive. It seems the patient has a bruise over the forehead. According to she had some falls in the past when she gets up her balance is off. She does not have any history of seizure. She has chronic low back pain and is on multiple pain medication but they are chronic and nothing has been modified. Per the she was notified that she had respiratory arrest en route to the hospital by EMS as well as while in the ED. She is intubated on the ventilator. Episode of unresponsiveness. Unsure if due to respiratory versus cardiac (bradycardia in 40's) as well as cannot rule out seizure especially with her falls in the past--mentation is drastically better Metabolic encephalopathy--improving Acute hypoxic respiratory failure patient is intubated on the ventilator--extubated today Acute Kidney insufficiency History of TIAs History of falls of unknown exact etiology History of low back pain and had multiple surgeries and is on multiple pain medication and sees a pain specialist History of bipolar Plan: Keppra 1 g twice daily was started yesterday as empiric treatment for possible seizure because of her recurrent fall. I went down to 500 mg twice daily. Preliminary EEG is negative for any seizure or discharges. Will pursue with MRI of the brain because of her episode of confusion to rule out any structural abnormality of stroke which I feel stroke is unlikely. Seizure precautions seizure pads 2D Echo is pending Recommend cardiology consultation. Will defer the rest of the medical management to primary and other specialist. The plan is discussed with patient's who is at bedside and primary team. Time with Patient: Less than 30
--- NOTE | 2024-09-19 16:22 | P.PN ---
Subjective Progress Note Date: 09/19/24 69 year old F with PMH of Bipolar disorder, HTN, DM, HTN, Hypothyroid, h/o CVA/TIA, HLD presents to the ED for altered mentation. She is currently intubated and history is obtained from the . She was last seen normal at 5AM, sleeping comfortably when the left for work. 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 EMS was called. In the ED BP 146/67, HR 60, RR 7, 100% on BVM. She was given narcan with minimal improvement. She was intubated in the ED to protect her airway. CBC, Coag panel, CMP significant for BUN 28, Cr 1.33, glu 106. Lactic acid 1.2. Troponin < 0.012. EKG sinus rhythm with RBBB and L anterior fascicular block. UDS + oxycodone, TCA. Serum EtOH < 10. CT brain, C-spine, face showed small forehead contusion, moderate DJD, grade 1 anterolisthesis C4 on C5, C7 on T1. CT chest/abd/pelvis showed healing 7th and 8th rib fracture, healing L1 and L2 transverse process fracture, moderate COPD with bibasilar atelectasis/consolidation. 09/19 Patient was seen and examined. Successfully extubated today. Discussed with Brenda, EEG negative, decreased Keppra to 500 mg IV BID. CBC and CMP significant for RBC 3.55, Hg 10.6, Hct 32.9, Cl 116, bicarb 19, BUN 25, alb 3.4. Phos 4.9. Mag 1.9. B12 518. Folate 25.5. TSH < 0.015, FT4 1.81. Ammonia < 9. Carbamazepine 13.8. HR in the 40s. Repeat brain CT neg. General: NAD Derm: warm, dry Head: atraumatic, normocephalic, symmetric, contusion forehead Eyes: no lid lag, anicteric sclera, pinpoint R pupil, aphakia L eye Mouth: no lip lesion, mucus membranes moist Cardiovascular: S1S2 elan, no murmur Lungs: Decreased BS bilateral, no rhonchi, no rales Abdominal: soft, non tender to palpation Ext: no gross muscle atrophy, no edema, no contractures Neuro: No FND Psych: AO x 2 Based on my assessment of this patient, this patient meets a high complexity level of care. Acute metabolic encephalopathy: CVA versus concussion versus seizure versus cardiac cause. Also polypharmacy (patient has been on the same medication for years). Hold Tegretol, Fentanyl, Gabapentin, Baclofen and Seroquel for now. Carbamazepine levels 13.8. ACS ruled out. Obtain Echo. Telemetry monitoring. Seizure and Fall precautions. Advanced neurochecks. Accuchecks Q6H. Consider MRI brain. Neurology on board. Acute hypoxic respiratory failure secondary to above Acute kidney injury versus CKD: Improved. NS at 50 cc/hr. Hold Lisinopril. Avoid nephrotoxins. Bipolar disorder: Hold Tegetrol and Seroquel for now. HTN: Hold Lisinopril. DM: Accuchecks Q6H. Hypothyroid: Synthroid 150 mcg PO QD. h/o CVA/TIA: Plavix 75 mg PO QD. Crestor 40 mg PO QD. CODE STATUS: FULL CODE DVT Prophylaxis: Heparin SQ GI Prophylaxis: Protonix PO Designated medical POA if patient is not able to make medical decisions for themselves: . I have reviewed the following customer consultant notes: Surgery, Neuro, Pulmonary note. I have reviewed the results of the following tests: As above. I have ordered the following tests: As above. I have discussed the care of this patient with the following independent historian: . I have independently interpreted the following test below: I have discussed the management of this patient with the following physician: Dr. Gutierrez Objective - Vital Signs Vital signs: Vital Signs Temp 98.4 F 09/19/24 16:00 Pulse 56 L 09/19/24 16:15 Resp 16 09/19/24 16:00 BP 114/42 09/19/24 16:00 Pulse Ox 94 L 09/19/24 16:00 FiO2 40 09/19/24 09:31 Intake & Output 09/18/24 09/19/24 09/19/24 18:59 06:59 18:59 Intake Total 2.177 735.525 532.148 Output Total 1000 395 985 Balance -997.823 340.525 -452.852 Weight 68.039 kg 65.8 kg Intake: IV 450 Sodium Chloride 0.9% 1, 450 000 ml @ 50 mls/hr IV . Q20H [facility] Rx#:[id number] Intake, IV Titration 2.177 735.525 82.148 Amount Sodium Chloride 0.9% 1, 500 50 000 ml @ 50 mls/hr IV . Q20H [facility] Rx#:[id number] Sodium Chloride 0.9% 1, 50 000 ml @ 999 mls/hr IV . Q1H1M STA Rx#:[id number] propofoL 1,000 mg In 2.177 Empty Bag 1 bag @ Titrate IV .Q0M ONE Rx#: [id number] propofoL 1,000 mg In 185.525 32.148 Empty Bag 1 bag @ Titrate IV .Q0M [facility] Rx#: [id number] Output: Gastric Drainage 200 Urine 1000 395 785 Uretheral (Bailey) 1000 70 Other: Voiding Method Indwelling Catheter Indwelling Catheter - Labs CBC & Chem 7: 09/19/24 05:41 09/19/24 05:41 Labs: Abnormal Lab Results - Last 24 Hours (Table) 09/18/24 09/18/24 09/18/24 Range/Units 16:37 16:37 17:02 RBC (3.80-5.40) m/uL Hgb (11.4-16.0) gm/dL Hct (34.0-46.0) % Lymphocytes # (1.0-4.8) k/uL ABG pO2 (83-108) mmHg ABG Total CO2 (19-24) mmol/L ABG O2 Saturation (94-97) % Hemoglobin (11.4-16.0) gm/dL Chloride (98-107) mmol/L Carbon Dioxide (22-30) mmol/L BUN (7-17) mg/dL Glucose (74-99) mg/dL POC Glucose (mg/dL) 122 H (70-110) mg/dL Phosphorus (2.5-4.5) mg/dL Total Protein (6.3-8.2) g/dL Albumin (3.5-5.0) g/dL TSH <0.015 L (0.465-4.680) mIU/L Ur Specific [place] (1.001-1.035) Carbamazepine 13.8 H (4.0-12.0) UG/ML 1109/18/24 09/18/24 Range/Units 17:11 20:01 21:31 RBC 3.66 L (3.80-5.40) m/uL Hgb 11.1 L (11.4-16.0) gm/dL Hct (34.0-46.0) % Lymphocytes # 0.5 L (1.0-4.8) k/uL ABG pO2 (83-108) mmHg ABG Total CO2 (19-24) mmol/L ABG O2 Saturation (94-97) % Hemoglobin (11.4-16.0) gm/dL Chloride (98-107) mmol/L Carbon Dioxide (22-30) mmol/L BUN (7-17) mg/dL Glucose (74-99) mg/dL POC Glucose (mg/dL) 135 H (70-110) mg/dL Phosphorus (2.5-4.5) mg/dL Total Protein (6.3-8.2) g/dL Albumin (3.5-5.0) g/dL TSH (0.465-4.680) mIU/L Ur Specific [place] 1.050 H (1.001-1.035) Carbamazepine (4.0-12.0) UG/ML 09/18/24 09/18/24 09/19/24 Range/Units 21:31 23:38 05:05 RBC (3.80-5.40) m/uL Hgb (11.4-16.0) gm/dL Hct (34.0-46.0) % Lymphocytes # (1.0-4.8) k/uL ABG pO2 183 H (83-108) mmHg ABG Total CO2 26 H (19-24) mmol/L ABG O2 Saturation 99.9 H (94-97) % Hemoglobin 10.6 L (11.4-16.0) gm/dL Chloride 112 H (98-107) mmol/L Carbon Dioxide 20 L (22-30) mmol/L BUN 24 H (7-17) mg/dL Glucose 147 H (74-99) mg/dL POC Glucose (mg/dL) 134 H (70-110) mg/dL Phosphorus (2.5-4.5) mg/dL Total Protein (6.3-8.2) g/dL Albumin (3.5-5.0) g/dL TSH (0.465-4.680) mIU/L Ur Specific [place] (1.001-1.035) Carbamazepine (4.0-12.0) UG/ML 09/19/24 09/19/24 09/19/24 Range/Units 05:41 05:41 05:41 RBC 3.58 L 3.55 L (3.80-5.40) m/uL Hgb 10.6 L 10.6 L (11.4-16.0) gm/dL Hct 33.2 L 32.9 L (34.0-46.0) % Lymphocytes # (1.0-4.8) k/uL ABG pO2 (83-108) mmHg ABG Total CO2 (19-24) mmol/L ABG O2 Saturation (94-97) % Hemoglobin (11.4-16.0) gm/dL Chloride 116 H (98-107) mmol/L Carbon Dioxide 19 L (22-30) mmol/L BUN 25 H (7-17) mg/dL Glucose (74-99) mg/dL POC Glucose (mg/dL) (70-110) mg/dL Phosphorus 4.9 H (2.5-4.5) mg/dL Total Protein 6.1 L (6.3-8.2) g/dL Albumin 3.4 L (3.5-5.0) g/dL TSH (0.465-4.680) mIU/L Ur Specific [place] (1.001-1.035) Carbamazepine (4.0-12.0) UG/ML Microbiology - Last 24 Hours (Table) 09/19/24 04:30 Gram Stain - Preliminary Sputum
--- NOTE | 2024-09-19 18:09 | CA ---
Transthoracic Echo Report Name: Yasmin Cordova Age: 69 Gender: F : 1955 Exam Date: 09/19/2024 07:59 Exam Location: [facility] Ht (in): 63 Wt (lb): 150 Ordering Physician: Yvrose Palmer MD Attending/Referring Phys: Webbing Supervisor Fannie Brar RDCS Procedure CPT: Indications: unresponsive Cardiac Hx: Technical Quality: Good Contrast 1: Total Dose (mL): Contrast 2: Total Dose (mL): MEASUREMENTS (Male / Female) Normal Values 2D ECHO LV Diastolic Diameter PLAX 4.9 cm 4.2 - 5.9 / 3.9 - 5.3 cm LV Systolic Diameter PLAX 4.0 cm IVS Diastolic Thickness 0.8 cm 0.6 - 1.0 / 0.6 - 0.9 cm LVPW Diastolic Thickness 0.7 cm 0.6 - 1.0 / 0.6 - 0.9 cm LV Relative Wall Thickness 0.3 LVOT Diameter 2.2 cm LV Diastolic Volume MOD BP 110.6 cm??? 67 - 155 / 56 - 104 cm??? LV Systolic Volume MOD BP 50.9 cm??? 22 - 58 / 19 - 49 cm??? LV Ejection Fraction MOD BP 54.0 % >= 55 % LV Cardiac Index MOD BP 1599.0 cm???/min???m??? LV Diastolic Volume MOD 4C 114.2 cm??? LV Systolic Volume MOD 4C 51.1 cm??? LV Ejection Fraction MOD 4C 55.3 % LV Cardiac Index MOD 4C 1690.4 cm???/min???m??? LV Diastolic Length 4C 8.3 cm LV Systolic Length 4C 6.7 cm LV Diastolic Volume MOD 2C 102.7 cm??? LV Systolic Volume MOD 2C 49.3 cm??? LV Ejection Fraction MOD 2C 52.0 % LV Cardiac Index MOD 2C 1428.9 cm???/min???m??? LV Diastolic Length 2C 7.9 cm LV Systolic Length 2C 6.5 cm LA Volume 52.8 cm??? 18 - 58 / 22 - 52 cm??? LA Volume Index 30.1 cm???/m??? 16 - 28 cm???/m??? DOPPLER AV Peak Velocity 139.9 cm/s AV Peak Gradient 7.8 mmHg AV Mean Velocity 90.3 cm/s AV Mean Gradient 3.7 mmHg AV Velocity Time Integral 33.7 cm LVOT Peak Velocity 103.2 cm/s LVOT Peak Gradient 4.3 mmHg LVOT Velocity Time Integral 24.2 cm LVOT Stroke Volume 92.6 cm??? LVOT Stroke Volume Index 54.1 ml/m??? LVOT Cardiac Index 2479.8 cm???/min???m??? AV Area Cont Eq vti 2.8 cm??? AV Area Cont Eq pk 2.8 cm??? MV Area PHT 3.7 cm??? Mitral E Point Velocity 72.1 cm/s Mitral A Point Velocity 59.8 cm/s Mitral E to A Ratio 1.2 MV Deceleration Time 204.3 ms TR Peak Velocity 251.1 cm/s TR Peak Gradient 25.2 mmHg Right Atrial Pressure 20.0 mmHg Pulmonary Artery Systolic Pressu 45.2 mmHg Right Ventricular Systolic Press 45.2 mmHg PV Peak Velocity 76.4 cm/s PV Peak Gradient 2.3 mmHg FINDINGS Left Ventricle Left ventricular ejection fraction is estimated at 50-55 %. Mildly increased left ventricular diastolic volume. Mildly increased left ventricular systolic volume. Mildly decreased left ventricular ejection fraction. No obvious regional wall motion abnormalities. Right Ventricle Mild right ventricular dilatation with normal function. Mild pulmonary hypertension. Right Atrium Mild right atrial dilatation. Left Atrium Mildly increased left atrial volume. Mitral Valve Mitral valve thickened. No evidence for mitral valve prolapse. No mitral stenosis. Trace mitral regurgitation. Aortic Valve Trileaflet aortic valve. No aortic stenosis. Trace aortic regurgitation. Tricuspid Valve Structurally normal tricuspid valve. No tricuspid stenosis. Mild tricuspid regurgitation. Pulmonic Valve Pulmonic valve not well visualized. No pulmonic stenosis. Trace pulmonic regurgitation. Pericardium No pericardial effusion. Aorta Aortic annulus normal. CONCLUSIONS Left ventricular ejection fraction is estimated at 50-55 %. No obvious regional wall motion abnormalities. Mild biatrial dilatation Mild RV dilatation with normal function. RVSP 45 mmHg. No significant valvular dysfunction Dilated IVC Previewed by: Dr Ld Love (Electronically Signed) Final Date: 19 September 2024 18:08
[2024-09-19 21:43] LABS: Glucose,Whole Blood 79 mg/dL (70-110)
[2024-09-19] MEDS: levETIRAcetam IV 500 MG/5 ML VIAL IVP SCH (23:13)
[2024-09-20] MEDS: SODIUM BICARB 8.4% 50 ML SYR (1 MEQ/ML) IV STA ×2 (00:11)
--- NOTE | 2024-09-20 00:19 | EEG ---
ELECTROENCEPHALOGRAM REPORT CLINICAL HISTORY: This is a 69-year-old woman with episode of unresponsiveness. Video EEG is obtained to evaluate for seizure epileptiform activity. RELEVANT MEDICATION: Keppra and IV propofol. EEG TYPE: This is a routine 21 channel EEG with video using the 10/20 electrode placement system. DESCRIPTION: Wakefulness is obtained. During awake state, the background consists of low-to- moderate voltage of 6 to 7.5 hertz activity alternating with diffuse nonrhythmic delta activity and at times, delta activity seems diffusely suppressed. There was no physiological stage 2 sleep architecture. There is no focal slowing. Interictal and ictal is none. ACTIVATION PROCEDURE: Photic stimulation did not evoke posterior driving response. There is no abnormality during the photic stimulation. Hyperventilation is not performed. CLINICAL INTERPRETATION: This is an abnormal routine EEG. The background slowing is suggestive of moderate encephalopathy. There is no focal slowing, epileptiform discharge, or seizure on the EEG. Clinical correlation is recommended. MMADRI / JOSE MANUEL: [id number] /
[2024-09-20 01:36] LABS: Glucose,Whole Blood 67 mg/dL (70-110)
[2024-09-20 02:47] LABS: Glucose,Whole Blood 65 mg/dL (70-110)
[2024-09-20 03:11] LABS: African American GFR (CKD) >90 (>60 ml/min/1.73 sqM); Anion Gap 5 mmol/L; Blood Urea Nitrogen 21 mg/dL (7-17); Calcium 8.8 mg/dL (8.4-10.2); Carbon Dioxide 20 mmol/L (22-30); Chloride 116 mmol/L (98-107); Glucose 74 mg/dL (74-99); Magnesium 1.8 mg/dL (1.6-2.3); Non-African American GFR(CKD) >90 (>60 ml/min/1.73 sqM); Potassium 3.7 mmol/L (3.5-5.1); Sodium 141 mmol/L (137-145)
[2024-09-20] MEDS: DEXTROSE 5%-0.9% NACL 1,000 ML IV SCH (03:13)
[2024-09-20 03:21] LABS: Glucose,Whole Blood 144 mg/dL (70-110)
[2024-09-20] MEDS: DOPamine DRIP 800 MG in DEXTROSE/WATER 1 250ML.BAG IV SCH (03:27)
--- NOTE | 2024-09-20 04:35 | P.PN ---
Progress Note - Text Progress Note Date: 09/20/24 Informed by the RN that the patient was bradycardic with telemetry showing a heart rate as low as 26 with multiple pauses as long as 2.8 seconds. The patient had appeared asymptomatic although was admitted for altered mental status. The case was subsequently discussed with cardiology on-call who recommended to transfer the patient to medical ICU and initiate dopamine infusion.
[2024-09-20 06:17] LABS: Glucose,Whole Blood 95 mg/dL (70-110)
[2024-09-20 07:07] LABS: Basophils % (A) 0 %; Eosinophils # (A) 0.1 k/uL (0-0.7); Eosinophils % (A) 1 %; HCT 38.6 % (34.0-46.0); HGB 12.3 gm/dL (11.4-16.0); Lymphocytes # (A) 1.2 k/uL (1.0-4.8); Lymphocytes % (A) 13 %; MCH 29.2 pg (25.0-35.0); MCHC 31.9 g/dL (31.0-37.0); MCV 91.5 fL (80.0-100.0); Monocytes # (A) 0.6 k/uL (0-1.0); Monocytes % (A) 7 %; Neutrophils % (A) 78 %; Platelet Count 244 k/uL (150-450); RBC 4.21 m/uL (3.80-5.40); RDW 12.9 % (11.5-15.5)
[2024-09-20 07:46] LABS: African American GFR (CKD) >90 (>60 ml/min/1.73 sqM); Anion Gap 8 mmol/L; Blood Urea Nitrogen 22 mg/dL (7-17); Calcium 9.2 mg/dL (8.4-10.2); Carbon Dioxide 22 mmol/L (22-30); Chloride 112 mmol/L (98-107); Glucose 104 mg/dL (74-99); Magnesium 1.8 mg/dL (1.6-2.3); Non-African American GFR(CKD) >90 (>60 ml/min/1.73 sqM); Potassium 3.9 mmol/L (3.5-5.1); Sodium 142 mmol/L (137-145)
[2024-09-20 09:04] LABS: Glucose,Whole Blood 115 mg/dL (70-110)
[2024-09-20 11:20] LABS: Glucose,Whole Blood 103 mg/dL (70-110)
--- NOTE | 2024-09-20 11:30 | P.PN ---
Subjective Progress Note Date: 09/20/24 Yasmin Cordova 69 year old F with of Bipolar disorder, hypertension, diabetes mellitus, hypothyroidism, history of CVA/TIA, hyperlipidemia presents with altered mental status. Per report in chart, she was last seen normal at 5AM, sleeping comfortably when the left for work. 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 EMS was called. While in ER she began to have hypoxic respiratory distress and was subsequently intubated and began on propofol. Initial lab findings were unremarkable bedside BUN 28, Cr 1.33, glu 106. Lactic acid 1.2. Troponin < 0.012. EKG sinus rhythm with no ST elevations depression or T wave abnormalities, RBBB pattern. UDS was positive for oxycodone and TCA carbamazepine elevated 13.8, otherwise unremarkable. Today patient was seen in the ICU and was initially intubated and sedated on propofol. ABG 183/44/7.36. Weaning parameters were assessed and decision was made to extubate. Patient is now on nasal cannula 4 L. IV normal saline at 50 ml/hr. Chest x-ray with no acute process. CT head and neck with some degenerative disc disease but otherwise no acute intracranial process or fracture. CT chest with no acute process however revealed several healing rib fractures and with minimal bibasilar atelectasis. Today's labs WBC 7.4, he moglobin 10.6, sodium 139, potassium 4.3, bicarb 19, BUN 25, creatinine 0.74. Patient continues to be lethargic but is otherwise in stable condition. She will continue to be monitored in the ICU. Patient seen and examined 09/20/2024 in the ICU. Yesterday patient was downgraded from the ICU, and overnight became bradycardic and began dopamine infusion per cardiology recommendations and decision was made to return to the ICU. Also her metabolic encephalopathy has worsened since yesterday she is now A+O x 1. Today, she is saturating well on room air, however remains bradycardic in the mid 30s to mid 50s pulse. Cardiology was notified and will see patient. Current IV lines are dopamine 5 mcg/kg/min and D5 with 0.9 normal saline at 50 mL/h. Today's labs WBC 9.0, hemoglobin 12.3, sodium 142, potassium 3.9, bicarb 22, BUN 22 unremarkable. Echocardiogram showed normal left ventricular function and EEG showed abnormal slowing. Due to bradycardia she is currently too unstable to proceed with MRI of brain at this time. We will continue to monitor in the ICU, prognosis is guarded. Objective - Vital Signs Vital signs: Vital Signs Temp 98.7 F 09/20/24 08:00 Pulse 45 L 09/20/24 09:00 Resp 18 09/20/24 09:00 BP 140/46 09/20/24 09:00 Pulse Ox 96 09/20/24 09:00 FiO2 40 09/19/24 09:31 Intake & Output 09/19/24 09/20/24 09/20/24 18:59 06:59 18:59 Intake Total 632.148 155.294 100 Output Total 985 1150 Balance -352.852 -994.706 100 Weight 65.6 kg Intake: IV 550 50 Dextrose 5%-0.9% NaCl 1, 50 000 ml @ 50 mls/hr IV . Q20H [facility] Rx#:[id number] Sodium Chloride 0.9% 1, 550 000 ml @ 50 mls/hr IV . Q20H [facility] Rx#:[id number] Intake, IV Titration 82.148 155.294 50 Amount DOPamine DRIP 800 mg In 5.294 Dextrose/Water 1 250ml. bag @ 2.5 MCG/KG/MIN 3. 084 mls/hr IV .Q24H [facility] Rx#:[id number] Dextrose 5%-0.9% NaCl 1, 150 50 000 ml @ 50 mls/hr IV . Q20H [facility] Rx#:[id number] Sodium Chloride 0.9% 1, 50 000 ml @ 50 mls/hr IV . Q20H [facility] Rx#:[id number] propofoL 1,000 mg In 32.148 Empty Bag 1 bag @ Titrate IV .Q0M [facility] Rx#: [id number] Output: Gastric Drainage 200 Urine 785 1150 Uretheral (Bailey) 70 575 Other: Voiding Method Indwelling Catheter # Voids 1 # Bowel Movements 1 - Exam GENERAL: Not in any acute distress. Well developed, well nourished. On room air HEENT: traumatic contusion R eyebrow otherwise, unable to further assess CARDIOVASCULAR: S1 and S2 present. No murmurs, rubs, or gallops. PULMONARY: Chest is clear to auscultation, no wheezing or crackles. ABDOMEN: Soft, nontender, nondistended, normoactive bowel sounds. No palpable organomegaly. MUSCULOSKELETAL: No joint swelling or deformity. EXTREMITIES: No cyanosis, clubbing, or pedal edema. NEUROLOGICAL: poor effort, however moving all extremities PSYCH: The patient is alert and oriented x1, to person SKIN: contusion R eyebrow. No rashes. no petechiae. - Labs CBC & Chem 7: 09/20/24 06:39 09/20/24 06:39 Labs: Abnormal Lab Results - Last 24 Hours (Table) 09/20/24 09/20/24 09/20/24 Range/Units 01:34 02:34 02:45 Chloride 116 H (98-107) mmol/L Carbon Dioxide 20 L (22-30) mmol/L BUN 21 H (7-17) mg/dL Glucose (74-99) mg/dL POC Glucose (mg/dL) 67 L 65 L (70-110) mg/dL 09/20/24 09/20/24 09/20/24 Range/Units 03:19 06:39 08:59 Chloride 112 H (98-107) mmol/L Carbon Dioxide (22-30) mmol/L BUN 22 H (7-17) mg/dL Glucose 104 H (74-99) mg/dL POC Glucose (mg/dL) 144 H 115 H (70-110) mg/dL Microbiology - Last 24 Hours (Table) 09/19/24 04:30 Gram Stain - Preliminary Sputum Assessment and Plan Assessment: Acute metabolic encephalopathy, extubated on 09/19/2024, improved Acute hypoxic respiratory failure, resolved Bradycardia JEAN versus CKD Bipolar disorder Hypertension Diabetes mellitus Hypothyroidism History of CVA/TIA Plan: Weaning parameters assessed and extubated on 09/19/2024, now on room air Holding home Tegretol, Fentanyl, Gabapentin, Baclofen and Seroquel Telemetry monitoring, Seizure and Fall precautions. Advanced neurochecks. EEG, echo non revealing Neurology following, continue Keppra 500 mg BID for seizure prophylaxis Continue D5 0.9 NS at 50 mL/h Continue dopamine infusion per cardiology recommendations Holding Tegetrol and Seroquel Holding home lisinopril Continue Accu-Cheks Continue Synthroid Continue Plavix and Crestor Continue DVT and GI prophylaxis PT/OT consulted Prognosis is guarded Patient will continue to be monitored in ICU for now
--- NOTE | 2024-09-20 12:57 | P.PN ---
Subjective Progress Note Date: 09/20/24 SURGICAL PROGRESS NOTE CHIEF COMPLAINT: Altered mental status and fall HISTORY OF PRESENT ILLNESS: Patient remains in the ICU. She is confused. She was extubated yesterday. Repeat CT scan of brain reports no acute intracranial process. Redemonstration of small forehead soft tissue contusion. Patient followed by neurology. They have an EEG and an MRI of the brain ordered. Patient has been bradycardic. And cardiology is now on consult. PHYSICAL EXAM: VITAL SIGNS: Reviewed. GENERAL: in no acute distress. HEENT: Small forehead laceration. no sclera icterus. Extraocular movements grossly intact. Moist buccal mucosa. Head is normocephalic. ABDOMEN: Soft. Nondistended. Nontender. NEUROLOGIC: Awake Confuse Extremities: Mild tenderness with palpation around both knees. No significant swelling or bruising noted. ASSESSMENT: 69 year female found down at home with unknown cause History of aspirin and Plavix Multiple strokes History of fentanyl patch Small forehead soft tissue contusion noted on CT PLAN: -No surgical intervention planned -X-ray of bilateral knees ordered to evaluate knee pain -Continue neuro and cardiac workup Physician Luster Repairer note has been reviewed by physician. Signing provider agrees with the documented findings, assessment, and plan of care. Attestation Patient seen and examined at bedside. Is confused. States she is having bilateral knee pain. X-ray of bilateral knees is ordered. No plan for surgical intervention. Continue neurologic and Cardiologic workup. Continue ICU care per critical care recommendations. Sary De Leon, Objective - Vital Signs Vital signs: Vital Signs Temp 98.7 F 09/20/24 12:00 Pulse 38 L 09/20/24 12:00 Resp 20 09/20/24 12:00 BP 151/106 09/20/24 12:00 Pulse Ox 95 09/20/24 12:00 FiO2 40 09/19/24 09:31 Intake & Output 09/19/24 09/20/24 09/20/24 18:59 06:59 18:59 Intake Total 632.148 155.294 250 Output Total 985 1150 Balance -352.852 -994.706 250 Weight 65.6 kg Intake: IV 550 200 Dextrose 5%-0.9% NaCl 1, 200 000 ml @ 50 mls/hr IV . Q20H [facility] Rx#:[id number] Sodium Chloride 0.9% 1, 550 000 ml @ 50 mls/hr IV . Q20H [facility] Rx#:[id number] Intake, IV Titration 82.148 155.294 50 Amount DOPamine DRIP 800 mg In 5.294 Dextrose/Water 1 250ml. bag @ 2.5 MCG/KG/MIN 3. 084 mls/hr IV .Q24H [facility] Rx#:[id number] Dextrose 5%-0.9% NaCl 1, 150 50 000 ml @ 50 mls/hr IV . Q20H [facility] Rx#:[id number] Sodium Chloride 0.9% 1, 50 000 ml @ 50 mls/hr IV . Q20H [facility] Rx#:[id number] propofoL 1,000 mg In 32.148 Empty Bag 1 bag @ Titrate IV .Q0M [facility] Rx#: [id number] Output: Gastric Drainage 200 Urine 785 1150 Uretheral (Bailey) 70 575 Other: Voiding Method Indwelling Catheter # Voids 1 # Bowel Movements 1 - Labs CBC & Chem 7: 09/20/24 06:39 09/20/24 06:39 Labs: Abnormal Lab Results - Last 24 Hours (Table) 09/20/24 09/20/24 09/20/24 Range/Units 01:34 02:34 02:45 Chloride 116 H (98-107) mmol/L Carbon Dioxide 20 L (22-30) mmol/L BUN 21 H (7-17) mg/dL Glucose (74-99) mg/dL POC Glucose (mg/dL) 67 L 65 L (70-110) mg/dL 09/20/24 09/20/24 09/20/24 Range/Units 03:19 06:39 08:59 Chloride 112 H (98-107) mmol/L Carbon Dioxide (22-30) mmol/L BUN 22 H (7-17) mg/dL Glucose 104 H (74-99) mg/dL POC Glucose (mg/dL) 144 H 115 H (70-110) mg/dL Microbiology - Last 24 Hours (Table) 09/19/24 04:30 Gram Stain - Preliminary Sputum Sputum Culture - Preliminary Gram Neg Bacilli
--- NOTE | 2024-09-20 14:41 | P.PN ---
Subjective Progress Note Date: 09/20/24 Following up with the patient and it seems the patient's neurological examination seems worse today. The caregiver is at bedside and she states she seems confused not at baseline. Seems that her heart rate is in the 30s and per the resident she is unstable to have repeat images. Objective - Vital Signs Vital signs: Vital Signs Temp 98.7 F 09/20/24 12:00 Pulse 35 L 09/20/24 13:00 Resp 10 L 09/20/24 13:00 BP 141/55 09/20/24 13:00 Pulse Ox 94 L 09/20/24 13:00 FiO2 40 09/19/24 09:31 Intake & Output 09/19/24 09/20/24 09/20/24 18:59 06:59 18:59 Intake Total 632.148 155.294 350 Output Total 985 1150 Balance -352.852 -994.706 350 Weight 65.6 kg Intake: IV 550 300 Dextrose 5%-0.9% NaCl 1, 300 000 ml @ 50 mls/hr IV . Q20H [facility] Rx#:[id number] Sodium Chloride 0.9% 1, 550 000 ml @ 50 mls/hr IV . Q20H [facility] Rx#:[id number] Intake, IV Titration 82.148 155.294 50 Amount DOPamine DRIP 800 mg In 5.294 Dextrose/Water 1 250ml. bag @ 2.5 MCG/KG/MIN 3. 084 mls/hr IV .Q24H [facility] Rx#:[id number] Dextrose 5%-0.9% NaCl 1, 150 50 000 ml @ 50 mls/hr IV . Q20H [facility] Rx#:[id number] Sodium Chloride 0.9% 1, 50 000 ml @ 50 mls/hr IV . Q20H [facility] Rx#:[id number] propofoL 1,000 mg In 32.148 Empty Bag 1 bag @ Titrate IV .Q0M [facility] Rx#: [id number] Output: Gastric Drainage 200 Urine 785 1150 Uretheral (Bailey) 70 575 Other: Voiding Method Indwelling Catheter # Voids 1 # Bowel Movements 1 - Exam General: Left lateral decubitus position and does not appear in acute distress. Neuro: Limited. Moderately drowsy but she is awake able to voice. She is oriented to self. She is following commands (showing thumbs up, sticking tongue out). Primary Gaze is midline. Unable to assess the visual forbes or extraocular movement. she sounds dysarthric. No facial weakness. Motor the strength is hard to assess individual muscle strength because of her cooperation but she will briefly lift up her arms above gravity. Some of the work-up during this hospital visit consisted of: Temperature is 97.4 F on initial presentation. Respiratory rate is as low as 7 L CBC with differential is unremarkable Plasma lactic acid venous 1.2. Ammonia level is less than 9. TSH: <0.015 and free T4: 1.81 B12: 518, serum folate: 25.50 Creatinine is 1.33, initial serum glucose is 106, sodium, AST ALT calcium is within normal limits Urine drug screen is positive for oxycodone and tricyclic antidepressant. Otherwise rest is nondetected and serum alcohol is less than 10 Urinalysis is unremarkable for any acute urinary tract infection. CT of the head and cervical spine is reported as no acute intracranial process. Small forehead soft tissue contusion. No acute facial bone fracture. No evidence of cervical spine fracture. Moderate multilevel degenerative disc disease. Grade 1 anterior listhesis of C4 on C5 and C7 on T1 favored to be degenerative. Personally reviewed the CT of the head and I agree there is no acute or subacute stroke. There is no mass effect. CT lumbar and thoracic spine I reviewed the report and it shows heal. 2D echo: Left ventricular ejection fraction of 50 to 55%. No obvious regional wall motion abnormality. No significant valvular dysfunction. CT of the head is no acute intracranial process. Redemonstration of small forehead soft tissue contusion. Routine EEG the background slowing is suggestive of moderate encephalopathy. There is no focal slowing, OptiForm discharge or seizure on the EEG. - Labs CBC & Chem 7: 09/20/24 06:39 09/20/24 06:39 Labs: Abnormal Lab Results - Last 24 Hours (Table) 09/20/24 09/20/24 09/20/24 Range/Units 01:34 02:34 02:45 Chloride 116 H (98-107) mmol/L Carbon Dioxide 20 L (22-30) mmol/L BUN 21 H (7-17) mg/dL Glucose (74-99) mg/dL POC Glucose (mg/dL) 67 L 65 L (70-110) mg/dL 11/09/20/24 09/20/24 Range/Units 03:19 06:39 08:59 Chloride 112 H (98-107) mmol/L Carbon Dioxide (22-30) mmol/L BUN 22 H (7-17) mg/dL Glucose 104 H (74-99) mg/dL POC Glucose (mg/dL) 144 H 115 H (70-110) mg/dL Microbiology - Last 24 Hours (Table) 09/19/24 04:30 Gram Stain - Preliminary Sputum Sputum Culture - Preliminary Klebsiella oxytoca Assessment and Plan Assessment: This is a 69-year-old woman who was found today by the people around noon on the chair and was responsive. It seems the patient has a bruise over the forehead. According to she had some falls in the past when she gets up her balance is off. She does not have any history of seizure. She has chronic low back pain and is on multiple pain medication but they are chronic and nothing has been modified. Per the she was notified that she had respiratory arrest en route to the hospital by EMS as well as while in the ED. She is intubated on the ventilator. Episode of unresponsiveness/recurrent falls. Probable due to bradycardiac. Routine EEG is negative for seizure or discharge Altered mental status is worse today and is restless but is following simple commands---Had two CT head and negative for stroke, EEG is negative for seizure or discharges. Possible due to withdrawal from psychiatry medication (Seroquel) and is having possible Akathisia Bradycardia in 30's Acute hypoxic respiratory failure patient is intubated on the ventilator--extubated today Acute Kidney insufficiency History of TIAs History of falls of unknown exact etiology History of low back pain and had multiple surgeries and is on multiple pain medication and sees a pain specialist History of bipolar Plan: On Keppra 500mg bid (started during this hospital visit) and will consider tapering down the line since no seizure or discharges. Spoke with primary attending and will pursue with CT head. Also consider psychiatry consultation. Her Seroquel was held during this admis flynn and primary will resume it. This does not seems opiate withdrawal. Once stable will pursue with MRI Brain to rule out any structural abnormality of stroke which I feel stroke is unlikely. Seizure precautions seizure pads Cardiology is consulted. Will defer the rest of the medical management to primary and other specialist. The plan is discussed with patient's caregiver and primary attending. Time with Patient: Less than 30
--- NOTE | 2024-09-20 14:42 | CT ---
EXAMINATION TYPE: CT brain wo con CT DLP: 1096.4 mGycm, Automated exposure control for dose reduction was used. DATE OF EXAM: 09/20/2024 2:30 PM COMPARISON: Prior CT Brain from 09/19/2024, CT brain, facial bones, C-spine 09/18/2024 CLINICAL INDICATION:Female, 69 years old with history of change in mental status, ams TECHNIQUE: Brain: Multiple axial CT images of the brain were obtained without IV contrast. . Coronal and sagitta l reformats reviewed. FINDINGS: Brain: Extra-axial spaces: No abnormal extra-axial fluid collections. Ventricular system: Within normal limits Cerebral parenchyma: No acute intraparenchymal hemorrhage or mass effect. The lopez-white junction is well differentiated. Cerebellum: Unremarkable. Mass effect: No evidence of midline shift. Intracranial vasculature: Atherosclerotic calcifications of the intracranial vessels. Soft tissues: Unremarkable. Calvarium/osseous structures: No depressed skull fracture. Paranasal sinuses and mastoid air cells: Clear Visualized orbits: No acute traumatic process to the orbital contents. Left aphakia with scleral weems le. Other: IMPRESSION: No acute intracranial process. [facility], , 09/20/2024 2:40 PM
[2024-09-20] MEDS: clonazePAM 1 MG TAB PO STA (15:32)
--- NOTE | 2024-09-20 16:05 | P.PN ---
Subjective Progress Note Date: 09/20/24 69 year old F with PMH of Bipolar disorder, HTN, DM, HTN, Hypothyroid, h/o CVA/TIA, HLD presents to the ED for altered mentation. She is currently intubated and history is obtained from the . She was last seen normal at 5AM, sleeping comfortably when the left for work. When her communications tech came around noon, she noticed the kitchen was a mess and the patient was laying on the couch, unresponsive, with a bruise on her forehead. EMS was called. In the ED BP 146/67, HR 60, RR 7, 100% on BVM. She was given narcan with minimal improvement. She was intubated in the ED to protect her airway. CBC, Coag panel, CMP significant for BUN 28, Cr 1.33, glu 106. Lactic acid 1.2. Troponin < 0.012. EKG sinus rhythm with RBBB and L anterior fascicular block. UDS + oxycodone, TCA. Serum EtOH < 10. CT brain, C-spine, face showed small forehead contusion, moderate DJD, grade 1 anterolisthesis C4 on C5, C7 on T1. CT chest/abd/pelvis showed healing 7th and 8th rib fracture, healing L1 and L2 transverse process fracture, moderate COPD with bibasilar atelectasis/consolidation. 09/19 Patient was seen and examined. Successfully extubated today. Discussed with Brenda, EEG negative, decreased Keppra to 500 mg IV BID. CBC and CMP significant for RBC 3.55, Hg 10.6, Hct 32.9, Cl 116, bicarb 19, BUN 25, alb 3.4. Phos 4.9. Mag 1.9. B12 518. Folate 25.5. TSH < 0.015, FT4 1.81. Ammonia < 9. Carbamazepine 13.8. HR in the 40s. Repeat brain CT neg. 09/20 Patient was seen and examined. More confused today. Appears restless. Last night HR as low as 20s, started on Dopamine drip and transferred to ICU. CBC and BMP significant for Cl 112, BUN 22, glu 104. Mag 1.8. Plans for TVP today. Discussed with Dr. Gutierrez, repeat CT brain negative. General: NAD Derm: warm, dry Head: atraumatic, normocephalic, symmetric, contusion forehead Eyes: no lid lag, anicteric sclera, pinpoint R pupil, aphakia L eye Mouth: no lip lesion, mucus membranes moist Cardiovascular: S1S2 elan, no murmur Lungs: Decreased BS bilateral, no rhonchi, no rales Abdominal: soft, non tender to palpation Ext: no gross muscle atrophy, no edema, no contractures Neuro: No FND Psych: AO x 2. Restlessness Based on my assessment of this patient, this patient meets a high complexity level of care. Acute metabolic encephalopathy: CVA versus concussion versus seizure versus cardiac cause. Also polypharmacy (patient has been on the same medication for years). Hold Tegretol, Fentanyl, Gabapentin, Baclofen and Seroquel for now. Carbamazepine levels 13.8. ACS ruled out. Obtain Echo. Telemetry monitoring. Seizure and Fall precautions. Advanced neurochecks. Accuchecks Q6H. Consider MRI brain. Neurology on board. Restlessness: Possibly akathisia. Clonipin 1 mg PO x 1. Restart Seroquel and Fentanyl path. Consult Psyc. Acute hypoxic respiratory failure secondary to above Acute kidney injury versus CKD: Improved. NS at 50 cc/hr. Hold Lisinopril. Avoid nephrotoxins. Bipolar disorder: Hold Tegetrol and Seroquel for now. HTN: Hold Lisinopril. DM: Accuchecks Q6H. Hypothyroid: Synthroid 150 mcg PO QD. h/o CVA/TIA: Plavix 75 mg PO QD. Crestor 40 mg PO QD. CODE STATUS: FULL CODE DVT Prophylaxis: Heparin SQ GI Prophylaxis: Protonix PO Designated medical POA if patient is not able to make medical decisions for themselves: . I have reviewed the following physician practice consultant notes: Surgery, Neuro, Pulmonary note. I have reviewed the results of the following tests: As above. I have ordered the following tests: CT brain. I have discussed the care of this patient with the following independent historian: . I have independently interpreted the following test below: CT brain. I have discussed the management of this patient with the following physician: Dr. Gutierrez Objective - Vital Signs Vital signs: Vital Signs Temp 98.7 F 09/20/24 12:00 Pulse 35 L 09/20/24 13:00 Resp 10 L 09/20/24 13:00 BP 141/55 09/20/24 13:00 Pulse Ox 94 L 09/20/24 13:00 FiO2 40 09/19/24 09:31 Intake & Output 09/19/24 09/20/24 09/20/24 18:59 06:59 18:59 Intake Total 632.148 155.294 350 Output Total 985 1150 Balance -352.852 -994.706 350 Weight 65.6 kg Intake: IV 550 300 Dextrose 5%-0.9% NaCl 1, 300 000 ml @ 50 mls/hr IV . Q20H [facility] Rx#:[id number] Sodium Chloride 0.9% 1, 550 000 ml @ 50 mls/hr IV . Q20H [facility] Rx#:[id number] Intake, IV Titration 82.148 155.294 50 Amount DOPamine DRIP 800 mg In 5.294 Dextrose/Water 1 250ml. bag @ 2.5 MCG/KG/MIN 3. 084 mls/hr IV .Q24H [facility] Rx#:[id number] Dextrose 5%-0.9% NaCl 1, 150 50 000 ml @ 50 mls/hr IV . Q20H [facility] Rx#:[id number] Sodium Chloride 0.9% 1, 50 000 ml @ 50 mls/hr IV . Q20H [facility] Rx#:[id number] propofoL 1,000 mg In 32.148 Empty Bag 1 bag @ Titrate IV .Q0M [facility] Rx#: [id number] Output: Gastric Drainage 200 Urine 785 1150 Uretheral (Bailey) 70 575 Other: Voiding Method Indwelling Catheter # Voids 1 # Bowel Movements 1 - Labs CBC & Chem 7: 09/20/24 06:39 09/20/24 06:39 Labs: Abnormal Lab Results - Last 24 Hours (Table) 09/20/24 09/20/24 09/20/24 Range/Units 01:34 02:34 02:45 Chloride 116 H (98-107) mmol/L Carbon Dioxide 20 L (22-30) mmol/L BUN 21 H (7-17) mg/dL Glucose (74-99) mg/dL POC Glucose (mg/dL) 67 L 65 L (70-110) mg/dL 09/20/24 09/20/24 09/20/24 Range/Units 03:19 06:39 08:59 Chloride 112 H (98-107) mmol/L Carbon Dioxide (22-30) mmol/L BUN 22 H (7-17) mg/dL Glucose 104 H (74-99) mg/dL POC Glucose (mg/dL) 144 H 115 H (70-110) mg/dL Microbiology - Last 24 Hours (Table) 09/19/24 04:30 Gram Stain - Preliminary Sputum Sputum Culture - Preliminary Klebsiella oxytoca
[2024-09-20] MEDS: HEPARIN SODIUM,PORCINE 10,000 UNIT in SODIUM CHLORIDE 0.9% 1,000 ML IRRIGATION ONE (16:16)
[2024-09-20] MEDS: LIDOCAINE 1% INJ 10MG/ML (20 ML MDV) SQ ONE (16:32)
[2024-09-20] MEDS: GABAPENTIN 300 MG CAP PO SCH (17:24)
[2024-09-20] MEDS: carBAMazepine 200 MG TAB PO SCH (17:25)
[2024-09-20] MEDS: QUEtiapine 50 MG TAB PO SCH (17:25)
[2024-09-20 17:39] LABS: Glucose,Whole Blood 115 mg/dL (70-110)
[2024-09-20] MEDS: oxyCODONE-APAP 10-325MG 1 EACH TAB PO PRN (17:54)
--- NOTE | 2024-09-20 19:07 | XR ---
EXAMINATION TYPE: XR knee complete bilateral DATE OF EXAM: 09/20/2024 7:03 PM COMPARISON: None. CLINICAL INDICATION: Female, 69 years old with history of bilateral knee pain, pain TECHNIQUE: XR knee complete bilateral views were obtained FINDINGS: There is no acute fracture/dislocation. The tri-compartment joint spaces appear within normal limits . The overlying soft tissue appears unremarkable. IMPRESSION: No acute fracture or dislocation [facility], , 09/20/2024 7:05 PM
--- NOTE | 2024-09-20 21:27 | P.CRDCN ---
History of Present Illness History of present illness: HISTORY OF PRESENTING ILLNESS This is a pleasant 69-year-old with past medical history significant for anxiety, bipolar disorder, blindness in left eye, DM2, hypothyroidism, hyperlipidemia, , mild CAD, HTN, CVA/ TIA and bradycardia who presents secondary to altered mental status. Patient follows in the office with myself. Patient has a history of [facility] 2018 with mild CAD. She has a history of bradycardia in the past however was felt asymptomatic. She presented after being found with AMS. Family states she was acting fine and then after approximately 2 hrs was found confused on her chair with a bruise on her forehead. No recent fevers or chills. She was significantly altered and therefore intubated and then extubated after around 24 hrs. She has been having intermittent bradycardic episodes with HR's down into the low 30's however maintained BP and no complaints of lightheadedness however patient not answering questions appropriately. Her HR will increase with agitation. TSH <0.015 but T4 normal. Denies chest pain. REVIEW OF SYSTEMS At the time of my exam: Unable to obtain secondary to AMS PHYSICAL EXAMINATION Vital signs reviewed. CONSTITUTIONAL: No apparent distress, shaking and altered HEENT: Head is normocephalic. Pupils are equal, round. Sclerae anicteric. Mucous membranes of the mouth are moist. No JVD. No carotid bruit. CHEST EXAMINATION: Lungs are clear to auscultation. No chest wall tenderness is noted on palpation or with deep breathing. HEART EXAMINATION: Regular rate and rhythm. S1, S2 heard. No murmurs, gallops or rub. ABDOMEN: Soft, nontender. Positive bowel sounds. EXTREMITIES: 2+ peripheral pulses, no lower extremity edema and no calf tenderness. NEUROLOGIC EXAMINATION: Patient is awake, confused ASSESSMENT AMS Sinus bradycardia, likely some degree of SSS. Possible Cushings reflex from brain pathology Bipolar disorder HTN HLD Mild CAD by [facility] 2018 Hx of CVA/TIA DM2 Presumed fall/ syncope with head trauma Subclinical hyperthyroidism PLAN Patient with continued sinus bradycardia with HR at 32 bpm despite dopamine drip. She is able to however increase her HR when agitated. Discussed possibility of hypoperfusion causing her confusion and therefore performing a TVP and TVP was placed and HR increased up to 60's with no improvement in mental status. Continue to monitor her symptomatically. Rule out component of Cush ing's reflex from brain pathology. Further recommendations regarding appropriateness of possible PPM. EF 50-55% on echo. If HR's improved and patient needs MRI may consider stopping TVP tomorrow. Prognosis guarded Past Medical History Past Medical History: CVA/TIA, Diabetes Mellitus, Hypertension, Thyroid Disorder Additional Past Medical History / Comment(s): CVA x2, back pain History of Any Multi-Drug Resistant Organisms: None Reported Past Surgical History: Appendectomy, Back Surgery, Hysterectomy, Joint Replacement Additional Past Surgical History / Comment(s): right hip replacement, Retina off left eye, back surgery 03/18/18 Past Anesthesia/Blood Transfusion Reactions: No Reported Reaction Past Psychological History: Bipolar Past Alcohol Use History: None Reported Past Drug Use History: None Reported - Past Family History Mother Family Medical History: Myocardial Infarction ([place]) Father Additional Family Medical History / Comment(s): brain aneurysm, at age 60 Medications and Allergies Home Medications Medication Instructions Recorded Confirmed Type Famotidine [Pepcid] 20 mg PO BID 10/24/17 09/18/24 History Oxybutynin Xl [Ditropan XL] 5 mg PO DAILY 10/24/17 09/18/24 History carBAMazepine [TEGretol] 200 mg PO QID 10/24/17 09/18/24 History fentaNYL 25MCG/HR PATCH [Duragesic 1 patch TRANSDERM Q72H 10/24/17 09/18/24 History 25MCG/HR] Gabapentin [Neurontin] 300 mg PO TID 01/10/18 09/18/24 History oxyCODONE-APAP 10-325MG [Percocet 1 tab PO Q12H PRN 01/10/18 09/18/24 History 10-325 mg] Clopidogrel [Plavix] 75 mg PO DAILY 04/03/18 09/18/24 History Baclofen [Lioresal] 10 mg PO QID 09/18/24 09/18/24 History Cholecalciferol [Vitamin D3 (125 125 mcg PO DAILY 09/18/24 09/18/24 History Mcg = 5000 Iu)] Levothyroxine Sodium [Synthroid] 150 mcg PO DAILY 09/18/24 09/18/24 History Montelukast [Singulair] 10 mg PO DAILY 09/18/24 09/18/24 History Multivitamin/Iron/Folic Acid 1 tab PO DAILY 09/18/24 09/18/24 History [Centrum Complete Multivit Tab] Pantoprazole [Protonix] 40 mg PO DAILY 09/18/24 09/18/24 History QUEtiapine [SEROquel] 50 mg PO QID 09/18/24 09/18/24 History Rosuvastatin Calcium [Crestor] 40 mg PO DAILY 09/18/24 09/18/24 History lisinopriL [Zestril] 10 mg PO DAILY 09/18/24 09/18/24 History Allergies Allergy/AdvReac Type Severity Reaction Status Date / Time iodine Allergy Unknown Verified 09/18/24 16:11 Tetracyclic Antidepressants Allergy Anaphylaxis Verified 09/18/24 16:11 aspirin AdvReac Nausea & Verified 09/18/24 16:11 Vomiting ibuprofen AdvReac Nausea & Verified 09/18/24 16:11 Vomiting & Diarrhea morphine AdvReac Unknown Verified 09/20/24 17:12 naproxen AdvReac Nausea & Verified 09/18/24 16:11 Vomiting & Diarrhea Physical Exam Vitals: Vital Signs Temp Pulse Pulse Pulse Pulse Resp BP 09/20/24 20:30 46 L 17 135/47 09/20/24 20:00 99 F 45 L 24 132/53 09/20/24 19:30 39 L 20 124/49 09/20/24 19:00 40 L 22 117/53 09/20/24 18:30 39 L 23 102/56 09/20/24 18:00 40 L 33 H 156/129 09/20/24 17:30 41 L 57 H 137/60 09/20/24 16:30 144/63 09/20/24 16:00 42 L 97 H 99/51 09/20/24 15:00 43 L 30 H 103/46 09/20/24 14:00 36 L 20 141/52 09/20/24 13:00 35 L 10 L 141/55 09/20/24 12:00 98.7 F 38 L 20 151/106 09/20/24 11:00 40 L 18 141/59 09/20/24 10:10 34 L 16 140/52 09/20/24 09:00 45 L 18 09/20/24 08:00 98.7 F 42 L 20 09/20/24 07:58 41 L 09/20/24 07:44 38 L 09/20/24 07:00 40 L 12 09/20/24 06:00 37 L 15 09/20/24 05:00 38 L 12 09/20/24 04:00 97.8 F 42 L 12 09/20/24 02:00 40 L 14 09/20/24 01:30 26 L 09/20/24 00:23 99.1 F 39 L 19 09/19/24 21:38 99.0 F 46 L 16 09/19/24 21:15 33 L BP Pulse Ox 09/20/24 20:30 94 L 09/20/24 20:00 94 L 09/20/24 19:30 93 L 09/20/24 19:00 95 09/20/24 18:30 97 09/20/24 18:00 97 09/20/24 17:30 96 09/20/24 16:30 09/20/24 16:00 95 09/20/24 15:00 97 09/20/24 14:00 94 L 09/20/24 13:00 94 L 09/20/24 12:00 95 09/20/24 11:00 94 L 09/20/24 10:10 97 09/20/24 09:00 140/46 96 09/20/24 08:00 135/87 97 09/20/24 07:58 09/20/24 07:44 09/20/24 07:00 142/52 97 09/20/24 06:00 132/44 09/20/24 05:00 122/45 09/20/24 04:00 09/20/24 02:00 107/41 97 09/20/24 01:30 09/20/24 00:23 106/52 93 L 09/19/24 21:38 104/42 95 09/19/24 21:15 Intake and Output 09/20/24 09/20/24 09/20/24 06:59 14:59 22:59 Intake Total 155.294 350 250 Output Total 1150 940 Balance -994.706 350 -690 Intake: IV 300 250 Dextrose 5%-0.9% NaCl 1, 300 250 000 ml @ 50 mls/hr IV . Q20H [facility] Rx#:[id number] Intake, IV Titration 155.294 50 Amount DOPamine DRIP 800 mg In 5.294 Dextrose/Water 1 250ml. bag @ 2.5 MCG/KG/MIN 3. 084 mls/hr IV .Q24H [facility] Rx#:[id number] Dextrose 5%-0.9% NaCl 1, 150 50 000 ml @ 50 mls/hr IV . Q20H [facility] Rx#:[id number] Output: Urine 1150 940 Uretheral (Bailey) 575 Other: # Voids 1 # Bowel Movements 1 1 Weight 65.6 kg Results 09/20/24 06:39 09/20/24 06:39 CBC 09/20/24 Range/Units 06:39 WBC 9.0 (3.8-10.6) k/uL RBC 4.21 (3.80-5.40) m/uL Hgb 12.3 (11.4-16.0) gm/dL Hct 38.6 (34.0-46.0) % Plt Count 244 (150-450) k/uL Comprehensive Metabolic Panel 09/20/24 09/20/24 Range/Units 02:34 06:39 Sodium 141 142 (137-145) mmol/L Potassium 3.7 3.9 (3.5-5.1) mmol/L Chloride 116 H 112 H (98-107) mmol/L Carbon Dioxide 20 L 22 (22-30) mmol/L BUN 21 H 22 H (7-17) mg/dL Creatinine 0.58 0.60 (0.52-1.04) mg/dL Glucose 74 104 H (74-99) mg/dL Calcium 8.8 9.2 (8.4-10.2) mg/dL Current Medications Generic Name Dose Route Start Last Admin Trade Name Freq PRN Reason Stop Dose Admin Acetaminophen 650 mg 09/18/24 16:21 Acetaminophen Tab 325 Mg Tab PO Q6HR PRN Mild Pain or Fever > 100.5 Albuterol/Ipratropium 3 ml 09/18/24 16:00 09/20/24 20:11 Ipratropium-Albuterol 3 Ml Neb INHALATION Not Given RT-QID [facility] Atorvastatin Calcium 80 mg 09/19/24 09:00 09/20/24 15:14 Atorvastatin 80 Mg Tab PO Not Given DAILY [facility] Carbamazepine 200 mg 09/20/24 18:00 09/20/24 17:25 Carbamazepine 200 Mg Tab PO 200 mg QID [facility] Administration Clopidogrel Bisulfate 75 mg 09/19/24 09:00 09/20/24 15:14 Clopidogrel 75 Mg Tab PO Not Given DAILY [facility] Fentanyl 1 patch 09/20/24 15:00 09/20/24 15:24 Fentanyl 25mcg/Hr Patch TRANSDERM 1 patch Q72H [facility] Administration Protocol Gabapentin 300 mg 09/20/24 16:00 09/20/24 17:24 Gabapentin 300 Mg Cap PO 300 mg TID [facility] Administration Heparin Sodium (Porcine) 5,000 unit 09/19/24 00:00 09/20/24 17:24 Heparin Sodium,Porcine 5,000 Unit/Ml 1 Ml Vial SQ 5,000 unit Q8HR [facility] Administration Dopamine HCl/Dextrose 800 mg/ 250 mls @ 3.084 mls/hr 09/20/24 03:00 09/20/24 05:10 IV Solution IV 5 mcg/kg/min .Q24H [facility] 6.169 mls/hr Titration Protocol 2.5 MCG/KG/MIN Dextrose/Sodium Chloride 1,000 mls @ 50 mls/hr 09/20/24 03:00 09/20/24 03:13 Dextrose 5%-Ns Iv Soln IV 50 mls/hr .Q20H [facility] Administration Levetiracetam 500 mg 09/19/24 21:00 09/20/24 08:28 Levetiracetam Iv 500 Mg/5 Ml Vial IVP 500 mg Q12HR [facility] Administration Levothyroxine Sodium 150 mcg 09/19/24 06:30 09/20/24 06:20 Levothyroxine 75 Mcg Tab PO Not Given 0630 [facility] Miscellaneous Information 1 each 09/19/24 06:38 Magnesium Replacement Protocol 1 Each Misc MISCELLANE DAILY PRN Per Protocol Protocol Montelukast Sodium 10 mg 09/19/24 09:00 09/20/24 15:14 Montelukast 10 Mg Tab PO Not Given DAILY [facility] Naloxone HCl 0.2 mg 09/18/24 14:54 Naloxone 0.4 Mg/Ml 1 Ml Vial IV Q2M PRN Opioid Reversal Ondansetron HCl 4 mg 09/18/24 16:21 Ondansetron 4 Mg/2 Ml Vial IVP Q8HR PRN Nausea And Vomiting Oxycodone/Acetaminophen 1 each 09/20/24 17:14 09/20/24 17:54 Oxycodone-Apap 10-325mg 1 Each Tab PO 1 each Q12H PRN Administration Pain Pantoprazole Sodium 40 mg 09/19/24 07:30 09/20/24 06:37 Pantoprazole 40 Mg Tablet PO Not Given 729 [facility] Quetiapine Fumarate 50 mg 09/20/24 18:00 09/20/24 17:25 Quetiapine 50 Mg Tab PO 50 mg QID [facility] Administration Intake and Output 09/20/24 09/20/24 09/20/24 06:59 14:59 22:59 Intake Total 155.294 350 250 Output Total 1150 940 Balance -994.706 350 -690 Intake: IV 300 250 Dextrose 5%-0.9% NaCl 1, 300 250 000 ml @ 50 mls/hr IV . Q20H [facility] Rx#:[id number] Intake, IV Titration 155.294 50 Amount DOPamine DRIP 800 mg In 5.294 Dextrose/Water 1 250ml. bag @ 2.5 MCG/KG/MIN 3. 084 mls/hr IV .Q24H [facility] Rx#:[id number] Dextrose 5%-0.9% NaCl 1, 150 50 000 ml @ 50 mls/hr IV . Q20H [facility] Rx#:[id number] Output: Urine 1150 940 Uretheral (Bailey) 575 Other: # Voids 1 # Bowel Movements 1 1 Weight 65.6 kg 09/20/24 06:39 09/20/24 06:39
--- NOTE | 2024-09-20 21:32 | P.PCN ---
Description of Procedure: PROCEDURES PERFORMED: Placement of temporary venous pacemaker INDICATION: bradycardia PROCEDURE: After the risks, benefits and alternatives of the above mentioned procedure explained in detail with the patient, informed consent was obtained. Patient was taken to the catheterization lab and prepped and draped in usual fashion. 1% lidocaine was used to anesthetize the right femoral area. A 6- Indonesian sheath was placed in the right femoral artery using modified Seldinger technique and ultrasound guidance. Next a 6Fr temporary venous pacemaker wire was placed in the RV under X ray guidance. Pacing parameters were deemed appropriate. Patient had no change in mental status with increasing pacing up to 60. To avoid overdrive pacing, pacing threshold was placed at 40 bpm. The patient tolerated the procedure well. Patient was transported back to the post catheterization holding area in stable condition. Sedation: Patient was not given any sedation given she was already significantly confused. FINAL IMPRESSION: 1. S/p TVP placement
[2024-09-20 21:54] LABS: Glucose,Whole Blood 119 mg/dL (70-110)
[2024-09-21] MEDS: ACETAMINOPHEN TAB 325 MG TAB PO PRN (03:20)
[2024-09-21 06:53] LABS: Glucose,Whole Blood 109 mg/dL (70-110)
[2024-09-21 10:40] LABS: HCT 34.5 % (34.0-46.0); HGB 11.6 gm/dL (11.4-16.0); MCH 29.4 pg (25.0-35.0); MCHC 33.6 g/dL (31.0-37.0); MCV 87.6 fL (80.0-100.0); Mean Platelet Volume 7.7; Platelet Count 219 k/uL (150-450); RBC 3.94 m/uL (3.80-5.40); RDW 12.9 % (11.5-15.5)
[2024-09-21 10:41] LABS: ALT 23 U/L (4-34); AST 25 U/L (14-36); African American GFR (CKD) >90 (>60 ml/min/1.73 sqM); Albumin 3.6 g/dL (3.5-5.0); Alkaline Phosphatase 108 U/L (38-126); Anion Gap 6 mmol/L; Blood Urea Nitrogen 20 mg/dL (7-17); Calcium 9.1 mg/dL (8.4-10.2); Carbon Dioxide 23 mmol/L (22-30); Chloride 114 mmol/L (98-107); Glucose 120 mg/dL (74-99); Non-African American GFR(CKD) >90 (>60 ml/min/1.73 sqM); Potassium 3.7 mmol/L (3.5-5.1); Sodium 143 mmol/L (137-145); Total Bilirubin 0.5 mg/dL (0.2-1.3); Total Protein 6.5 g/dL (6.3-8.2)
--- NOTE | 2024-09-21 11:17 | P.PN ---
Subjective Progress Note Date: 09/21/24 Yasmin Cordova 69 year old F with of Bipolar disorder, hypertension, diabetes mellitus, hypothyroidism, history of CVA/TIA, hyperlipidemia presents with altered mental status. Per report in chart, she was last seen normal at 5AM, sleeping comfortably when the left for work. When her senior strategy manager came around noon, she noticed the kitchen was a mess and the patient was laying on the couch, unresponsive, with a bruise on her forehead. EMS was called. While in ER she began to have hypoxic respiratory distress and was subsequently intubated and began on propofol. Initial lab findings were unremarkable bedside BUN 28, Cr 1.33, glu 106. Lactic acid 1.2. Troponin < 0.012. EKG sinus rhythm with no ST elevations depression or T wave abnormalities, RBBB pattern. UDS was positive for oxycodone and TCA carbamazepine elevated 13.8, otherwise unremarkable. Today patient was seen in the ICU and was initially intubated and sedated on propofol. ABG 183/44/7.36. Weaning parameters were assessed and decision was made to extubate. Patient is now on nasal cannula 4 L. IV normal saline at 50 ml/hr. Chest x-ray with no acute process. CT head and neck with some degenerative disc disease but otherwise no acute intracranial process or fracture. CT chest with no acute process however revealed several healing rib fractures and with minimal bibasilar atelectasis. Today's labs WBC 7.4, he moglobin 10.6, sodium 139, potassium 4.3, bicarb 19, BUN 25, creatinine 0.74. Patient continues to be lethargic but is otherwise in stable condition. She will continue to be monitored in the ICU. Patient seen and examined 09/20/2024 in the ICU. Yesterday patient was downgraded from the ICU, and overnight became bradycardic and began dopamine infusion per cardiology recommendations and decision was made to return to the ICU. Also her metabolic encephalopathy has worsened since yesterday she is now A+O x 1. Today, she is saturating well on room air, however remains bradycardic in the mid 30s to mid 50s pulse. Cardiology was notified and will see patient. Current IV lines are dopamine 5 mcg/kg/min and D5 with 0.9 normal saline at 50 mL/h. Today's labs WBC 9.0, hemoglobin 12.3, sodium 142, potassium 3.9, bicarb 22, BUN 22 unremarkable. Echocardiogram showed normal left ventricular function and EEG showed abnormal slowing. Due to bradycardia she is currently too unstable to proceed with MRI of brain at this time. We will continue to monitor in the ICU, prognosis is guarded. Patient seen and examined on 09/21/2024 in the ICU. Yesterday patient seen by cardiology and it was decided that temporary venous pacemaker would be placed, which was done without complications. Today her mentation seems to be improving slowly, A+O x 2. She is on room air. Current IV lines are dopamine 5 mcg/kg/minute, D5W NS 50 mL/h, NS at 20 mL/h. Home Seroquel 50 mg 4 times daily, gabapentin, Tegretol, fentanyl patch was restarted. Labs today WBC 9.0, hemoglobin 12.3, sodium 142, potassium 3.9, bicarb 22, BUN 22, creatinine 0.60 troponin 0.024. Awaiting procalcitonin. Sputum culture Klebsiella oxytoca. Bilateral knee x-ray without fracture. Repeat CT head impression with no acute process. Remains too unstable for MRI of brain. She will continue to be monitored in the ICU. Objective - Vital Signs Vital signs: Vital Signs Temp 98.8 F 09/21/24 04:00 Pulse 45 L 09/21/24 07:49 Resp 26 H 09/21/24 07:00 BP 152/60 09/21/24 07:00 Pulse Ox 96 09/21/24 07:00 FiO2 40 09/19/24 09:31 Intake & Output 09/20/24 09/21/24 09/21/24 18:59 06:59 18:59 Intake Total 550 650 Output Total 0 1630 Balance 550 -980 Weight 62.7 kg Intake: IV 500 650 Dextrose 5%-0.9% NaCl 1, 500 650 000 ml @ 50 mls/hr IV . Q20H [facility] Rx#:[id number] Intake, IV Titration 50 Amount Dextrose 5%-0.9% NaCl 1, 50 000 ml @ 50 mls/hr IV . Q20H [facility] Rx#:[id number] Output: Urine 0 1630 Other: Voiding Method Indwelling Catheter # Voids 1 # Bowel Movements 1 - Exam GENERAL: Not in any acute distress. Well developed, well nourished. On room air HEENT: traumatic contusion R eyebrow otherwise, unable to further assess CARDIOVASCULAR: S1 and S2 present. No murmurs, rubs, or gallops. PULMONARY: Chest is clear to auscultation, no wheezing or crackles. ABDOMEN: Soft, nontender, nondistended, normoactive bowel sounds. No palpable organomegaly. MUSCULOSKELETAL: No joint swelling or deformity. EXTREMITIES: No cyanosis, clubbing, or pedal edema. NEUROLOGICAL: poor effort, however moving all extremities PSYCH: The patient is alert and oriented x2, to person and place, following directions SKIN: contusion R eyebrow. No rashes. no petechiae. - Labs CBC & Chem 7: 09/20/24 06:39 09/20/24 06:39 Labs: Abnormal Lab Results - Last 24 Hours (Table) 09/20/24 09/20/24 09/20/24 Range/Units 08:59 17:37 21:52 POC Glucose (mg/dL) 115 H 115 H 119 H (70-110) mg/dL Microbiology - Last 24 Hours (Table) 09/19/24 04:30 Gram Stain - Preliminary Sputum Sputum Culture - Preliminary Klebsiella oxytoca Assessment and Plan Assessment: Acute metabolic encephalopathy, may be secondary to antipsychotic medication withdrawal Acute hypoxic respiratory failure, extubated on 09/19/2024, resolved Sinus Bradycardia JEAN versus CKD, resolved Bipolar disorder Hypertension Diabetes mellitus Hypothyroidism History of CVA/TIA Plan: Weaning parameters assessed and extubated on 09/19/2024, now on room air Resume home Tegretol, Fentanyl patch, Gabapentin, and Seroquel Telemetry monitoring, Seizure and Fall precautions. Advanced neurochecks. Repeat CT head, EEG, echo non revealing Sputum culture with Klebsiella oxytoca Neurology following, continue Keppra 500 mg BID for seizure prophylaxis Continue D5 0.9 NS at 50 mL/h Continue normal saline 0.9 at 20 mL/h Continue dopamine infusion per cardiology recommendations Holding home lisinopril Continue Accu-Cheks Continue Synthroid Continue Plavix and Crestor Continue DVT and GI prophylaxis PT/OT consulted Prognosis is guarded Patient will continue to be monitored in ICU for now
[2024-09-21 12:39] LABS: Glucose,Whole Blood 127 mg/dL (70-110)
--- NOTE | 2024-09-21 12:58 | P.PN ---
Subjective Progress Note Date: 09/21/24 I am following up with the patient seems the patient is doing somewhat better today compared to yesterday. Objective - Vital Signs Vital signs: Vital Signs Temp 98.6 F 09/21/24 08:00 Pulse 71 09/21/24 11:31 Resp 19 09/21/24 11:18 BP 105/53 09/21/24 11:00 Pulse Ox 98 09/21/24 11:00 FiO2 40 09/19/24 09:31 Intake & Output 09/20/24 09/21/24 09/21/24 18:59 06:59 18:59 Intake Total 550 650 501.986 Output Total 0 1630 400 Balance 550 -980 101.986 Weight 62.7 kg Intake: IV 500 650 200 Dextrose 5%-0.9% NaCl 1, 500 650 200 000 ml @ 50 mls/hr IV . Q20H [facility] Rx#:[id number] Intake, IV Titration 50 181.986 Amount DOPamine DRIP 800 mg In 181.986 Dextrose/Water 1 250ml. bag @ 2.5 MCG/KG/MIN 3. 084 mls/hr IV .Q24H [facility] Rx#:[id number] Dextrose 5%-0.9% NaCl 1, 50 000 ml @ 50 mls/hr IV . Q20H [facility] Rx#:[id number] Oral 120 Output: Urine 0 1630 400 Other: Voiding Method Indwelling Catheter # Voids 1 # Bowel Movements 1 - Exam General: Lying in bed and is not in acute distress. Neuro: Somewhat limited. Patient is drowsy but is awake able to voice. She is oriented to self and correctly stated the hospital. She is following simple commands. Still has some confusion but today she has improvement compared to yesterday she correctly stated her date of . She stated president is Trump. No facial weakness. Somewhat dysarthric. Left and upper extremity above gravity and appears symmetrical has arthritic changes of the hands. Some of the work-up during this hospital visit consisted of: Temperature is 97.4 F on initial presentation. Respiratory rate is as low as 7 L CBC with differential is unremarkable Plasma lactic acid venous 1.2. Ammonia level is less than 9. TSH: <0.015 and free T4: 1.81 B12: 518, serum folate: 25.50 Creatinine is 1.33, initial serum glucose is 106, sodium, AST ALT calcium is within normal limits Urine drug screen is positive for oxycodone and tricyclic antidepressant. Otherwise rest is nondetected and serum alcohol is less than 10 Urinalysis is unremarkable for any acute urinary tract infection. CT of the head and cervical spine is reported as no acute intracranial process. Small forehead soft tissue contusion. No acute facial bone fracture. No evidence of cervical spine fracture. Moderate multilevel degenerative disc disease. Grade 1 anterior listhesis of C4 on C5 and C7 on T1 favored to be degenerative. Personally reviewed the CT of the head and I agree there is no ac stacie or subacute stroke. There is no mass effect. CT lumbar and thoracic spine I reviewed the report and it shows heal. 2D echo: Left ventricular ejection fraction of 50 to 55%. No obvious regional w all motion abnormality. No significant valvular dysfunction. CT of the head is no acute intracranial process. Redemonstration of small forehead soft tissue contusion. Routine EEG the background slowing is suggestive of moderate encephalopathy. There is no focal slowing, OptiForm discharge or seizure on the EEG. Repeat CT head on 09/21/2024: No acute intracranial process. - Labs CBC & Chem 7: 09/21/24 10:00 09/21/24 10:00 Labs: Abnormal Lab Results - Last 24 Hours (Table) 09/20/24 09/20/24 09/21/24 Range/Units 17:37 21:52 10:00 Chloride 114 H (98-107) mmol/L BUN 20 H (7-17) mg/dL Glucose 120 H (74-99) mg/dL POC Glucose (mg/dL) 115 H 119 H (70-110) mg/dL 09/21/24 Range/Units 12:37 Chloride (98-107) mmol/L BUN (7-17) mg/dL Glucose (74-99) mg/dL POC Glucose (mg/dL) 127 H (70-110) mg/dL Microbiology - Last 24 Hours (Table) 09/19/24 04:30 Gram Stain - Final Sputum Sputum Culture - Final Klebsiella oxytoca Assessment and Plan Assessment: This is a 69-year-old woman who was found today by the people around noon on the chair and was responsive. It seems the patient has a bruise over the forehead. According to she had some falls in the past when she gets up her balance is off. She does not have any history of seizure. She has chronic low back pain and is on multiple pain medication but they are chronic and nothing has been modified. Per the she was notified that she had respiratory arrest en route to the hospital by EMS as well as while in the ED. She is intubated on the ventilator. Episode of unresponsiveness/recurrent falls. Probable due to bradycardiac. Routine EEG is negative for seizure or discharge Altered mental status: Seems possible due to withdrawal from her antipsychotic medication (Seroquel) and today there is some improvement. Had three CT head and negative for stroke, EEG is negative for seizure or discharges. Bradycardia in 30's s/p temporary venous pacemaker Acute hypoxic respiratory failure patient is intubated on the ventilator--extubated today Acute Kidney insufficiency History of TIAs History of falls of unknown exact etiology History of low back pain and had multiple surgeries and is on multiple pain medication and sees a pain specialist History of bipolar Plan: On Keppra 500mg bid (started during this hospital visit) and will consider tapering down the line since no seizure or discharges. Once the patient is more stable recommend to pursue MRI Brain. Psychiatry team is consulted. Her Seroquel was held during this admission and it was resumed on 09/20/2024. This does not seems opiate withdrawal. Seizure precautions seizure pads Cardiology is consulted. Will defer the rest of the medical management to primary and other specialist. The plan is discussed with patient's primary attending and nurse. Time with Patient: Less than 30
--- NOTE | 2024-09-21 13:44 | P.PN ---
Subjective Progress Note Date: 09/21/24 SURGICAL PROGRESS NOTE CHIEF COMPLAINT: Altered mental status and fall HISTORY OF PRESENT ILLNESS: Patient remains in the ICU. She is still confused. She has a bedside sitter. She had a temporary venous pacemaker placed for her bradycardia by cardiology service. Bilateral knee x-rays completed with no acute fracture or dislocation. PHYSICAL EXAM: VITAL SIGNS: Reviewed. GENERAL: in no acute distress. HEENT: Small forehead laceration. no sclera icterus. Extraocular movements grossly intact. Moist buccal mucosa. Head is normocephalic. ABDOMEN: Soft. Nondistended. Nontender. NEUROLOGIC: Awake. Confused ASSESSMENT: 69 year female found down at home with unknown cause History of aspirin and Plavix Multiple strokes History of fentanyl patch Small forehead soft tissue contusion noted on CT PLAN: -No trauma surgical intervention planned -Continue neuro and cardiac workup -Continue ICU management and supportive care -Surgical service will sign off. Please call with any questions or concerns. Physician Matzo Forming Machine Operator note has been reviewed by physician. Signing provider agrees with the documented findings, assessment, and plan of care. Objective - Vital Signs Vital signs: Vital Signs Temp 98.6 F 09/21/24 08:00 Pulse 50 L 09/21/24 13:00 Resp 18 09/21/24 13:00 BP 132/52 09/21/24 13:00 Pulse Ox 94 L 09/21/24 13:00 FiO2 40 09/19/24 09:31 Intake & Output 09/20/24 09/21/24 09/21/24 18:59 06:59 18:59 Intake Total 550 650 551.986 Output Total 0 1630 475 Balance 550 -980 76.986 Weight 62.7 kg Intake: IV 500 650 250 Dextrose 5%-0.9% NaCl 1, 500 650 250 000 ml @ 50 mls/hr IV . Q20H [facility] Rx#:[id number] Intake, IV Titration 50 181.986 Amount DOPamine DRIP 800 mg In 181.986 Dextrose/Water 1 250ml. bag @ 2.5 MCG/KG/MIN 3. 084 mls/hr IV .Q24H [facility] Rx#:[id number] Dextrose 5%-0.9% NaCl 1, 50 000 ml @ 50 mls/hr IV . Q20H [facility] Rx#:[id number] Oral 120 Output: Urine 0 1630 475 Other: Voiding Method Indwelling Catheter Indwelling Catheter # Voids 1 # Bowel Movements 1 - Labs CBC & Chem 7: 09/21/24 10:00 09/21/24 10:00 Labs: Abnormal Lab Results - Last 24 Hours (Table) 09/20/24 09/20/24 09/21/24 Range/Units 17:37 21:52 10:00 Chloride 114 H (98-107) mmol/L BUN 20 H (7-17) mg/dL Glucose 120 H (74-99) mg/dL POC Glucose (mg/dL) 115 H 119 H (70-110) mg/dL 09/21/24 Range/Units 12:37 Chloride (98-107) mmol/L BUN (7-17) mg/dL Glucose (74-99) mg/dL POC Glucose (mg/dL) 127 H (70-110) mg/dL Microbiology - Last 24 Hours (Table) 09/19/24 04:30 Gram Stain - Final Sputum Sputum Culture - Final Klebsiella oxytoca
--- NOTE | 2024-09-21 14:14 | P.CN ---
Psychiatric Consult - . Consult date: 09/21/24 Consult:: 09/21/24 13:07 IDENTIFYING DATA: This patient is a 69-year-old female, she is she lives with her in a house, collect Social Security, she has no kids REASON FOR REFERRAL: Psychiatry was consulted for "akathisia" HISTORY OF PRESENT ILLNESS: The patient presented to the hospital on 09/18 for altered mental status apparently was found unresponsive at home had a fall and a head injury. EMS brought patient into the hospital. She was intubated brought to the ICU currently being medically treated. She was extubated 2 days ago, restarted back on her Seroquel yesterday. Patient has had 3 CAT scans did not s how any acute intracranial changes or hemorrhage. Neurology is on board, EEG has been completed. Patient was seen at the bedside, advertising copywriter spoke with patient's outside the room who relayed his concerns states that patient has been a bit confused, somewhat sleepy, unknown as to why or how she hit her head and fell. Patient was seen at the bedside, only followed some commands, appeared to have poor attention span. She knew her name however believes that she was "55 years old". She also thought that she was born in 1885". She does not know today's date. She knew that she was in [facility]. When asked questions she did not know she began singing and answered illogically. She believes that she came to the hospital because "my said I needed drugs" and did not have any recollection of her fall or the events that occurred. Denied any current stressors, states that she is doing "okay". Denying any depression or anxiety. She was not able to follow most directions or commands by advertising copywriter. Poor attention span poor insight poor recollection. At this time patient denies any suicidal or homical ideations, intent or plan. Patient denies any auditory, visual hallucinations and denies any paranoia or delusions. Patients admits to using no recreational drugs are cigarettes PAST PSYCHIATRIC HISTORY: Patient has a a history of bipolar disorder for several years. Patient is currently on Seroquel 50 mg 4 times a day and Tegretol as well for mood stabilization. According to patient has been psychiatrically hospitalized at [facility] about 20 years ago. Patient currently follows up with her psychiatrist Dr. Ann. Patient denies any history of suicide attempts in the past. PAST MEDICAL HISTORY: as per medicine H and P ALLERGIES: as per EMR. CHEMICAL DEPENDENCY HISTORY: as per HPI. FAMILY PSYCHIATRIC/SUBSTANCE USE HISTORY: Denies SOCIAL HISTORY: Patient was only able to give limited information about her social history, she current lives with her in a house, collect Social Security, does not have any kids.. MENTAL STATUS EXAM: General Appearance: Patient appears to be thin, bruising and abrasion over her nose and forehead, stated age is alert, attempts to cooperate however has poor attention span. Patient appears to have fair hygiene and grooming wearing hospital gown with poor eye contact. Behavior: Patient is calmly lying in bed without any agitated behavior. Turns away several times, poor attention span Speech: Patient's speech is fluent and nonpressured. Sings at times Mood/Affect: Patient reports their mood is "ok", affect is congruent and constricted Suicidality/Homicidality: Patient denies having any suicidal or homicidal ideation intent or plan. Perceptions: Patient denies any visual hallucinations and denies any auditory hallucinations Though content/process: [place], illogical at times, disorganized thoughts, poor attention span and inappropriate answers Memory and concentration: AOX1-2, grossly impaired attention span, does not know today's date or her age. Cannot spell "WORLD" backwards Judgment and insight: Limited/poor IMPRESSIONS: Delirium, likely secondary to head injury and possibly medications history of bipolar disorder PLAN: -At this time patient DOES NOT meet criteria for inpatient psychiatric admission. -Delirium precautions recommended with patient including - avoiding use of narcotics and MACHINIST WOOD sedatives, limit anticholinergic medications when possible, frequent re-orientation, minimize use of restraints, open window shades during the day and close them at night -Would recommend the following medication changes/additions: Changed dose of Seroquel to 50 mg daily +75 mg nightly for psychosis/mood stabilization/delirium. add melatonin if needed for sleep. continue with tegretol as perscribed. -Communicated plan to patient's nurse -Will continue to follow along as needed -will attempt to contact patients psychiatrist Dr Luke for further information -Please contact with any questions. 09/21/24 14:05 09/21/24 14:13
[2024-09-21 16:06] LABS: Glucose,Whole Blood 95 mg/dL (70-110)
--- NOTE | 2024-09-21 16:09 | P.PN ---
Subjective Progress Note Date: 09/21/24 69 year old F with PMH of Bipolar disorder, HTN, DM, HTN, Hypothyroid, h/o CVA/TIA, HLD presents to the ED for altered mentation. She is currently intubated and history is obtained from the . She was last seen normal at 5AM, sleeping comfortably when the left for work. When her spring coverer came around noon, she noticed the kitchen was a mess and the patient was laying on the couch, unresponsive, with a bruise on her forehead. EMS was called. In the ED BP 146/67, HR 60, RR 7, 100% on BVM. She was given narcan with minimal improvement. She was intubated in the ED to protect her airway. CBC, Coag panel, CMP significant for BUN 28, Cr 1.33, glu 106. Lactic acid 1.2. Troponin < 0.012. EKG sinus rhythm with RBBB and L anterior fascicular block. UDS + oxycodone, TCA. Serum EtOH < 10. CT brain, C-spine, face showed small forehead contusion, moderate DJD, grade 1 anterolisthesis C4 on C5, C7 on T1. CT chest/abd/pelvis showed healing 7th and 8th rib fracture, healing L1 and L2 transverse process fracture, moderate COPD with bibasilar atelectasis/consolidation. 09/19 Patient was seen and examined. Successfully extubated today. Discussed with Brenda, EEG negative, decreased Keppra to 500 mg IV BID. CBC and CMP significant for RBC 3.55, Hg 10.6, Hct 32.9, Cl 116, bicarb 19, BUN 25, alb 3.4. Phos 4.9. Mag 1.9. B12 518. Folate 25.5. TSH < 0.015, FT4 1.81. Ammonia < 9. Carbamazepine 13.8. HR in the 40s. Repeat brain CT neg. 09/20 Patient was seen and examined. More confused today. Appears restless. Last night HR as low as 20s, started on Dopamine drip and transferred to ICU. CBC and BMP significant for Cl 112, BUN 22, glu 104. Mag 1.8. Plans for TVP today. Discussed with Dr. Gutierrez, repeat CT brain negative. 09/20 Patient was seen and examined. She continues to be restless. CT brain ordered yesterday which showed no acute pathology. She did undergo TVP yesterday, HR in the 60s. CBC and CMP significant for Cl 114, BUN 20, glu 120. Procal 0.04. Echo EF 50-55%. General: NAD Derm: warm, dry Head: atraumatic, normocephalic, symmetric, contusion forehead Eyes: no lid lag, anicteric sclera, pinpoint R pupil, aphakia L eye Mouth: no lip lesion, mucus membranes moist Cardiovascular: S1S2 elan, no murmur Lungs: Decreased BS bilateral, no rhonchi, no rales Abdominal: soft, non tender to palpation Ext: no gross muscle atrophy, no edema, no contractures Neuro: No FND Psych: AO x 2. Restlessness Based on my assessment of this patient, this patient meets a high complexity level of care. Sinus bradycardia: Status post TVP by Cardiology 09/20. Avoid AV katerin blockers. Acute metabolic encephalopathy: CVA versus concussion versus seizure versus cardiac cause. Also polypharmacy (patient has been on the same medication for years). Restart Tegretol, Fentanyl, Gabapentin, and Seroquel. Carbamazepine levels 13.8. ACS ruled out. Echo as above. Telemetry monitoring. Seizure and Fall precautions. Advanced neurochecks. Accuchecks Q6H. Consider MRI brain when stable. Neurology on board. Restlessness: Possibly akathisia. Restart Tegretol, Fentanyl, Gabapentin, and Seroquel. Discussed with Dr. Darden he will evaluate the patient. Acute hypoxic respiratory failure secondary to above Bipolar disorder: Restart Tegetrol and Seroquel. HTN: Hold Lisinopril. DM: Accuchecks Q6H. Hypothyroid: Synthroid 150 mcg PO QD. h/o CVA/TIA: Plavix 75 mg PO QD. Crestor 40 mg PO QD. Resolved: JEAN CODE STATUS: FULL CODE DVT Prophylaxis: Heparin SQ GI Prophylaxis: Protonix PO Designated medical POA if patient is not able to make medical decisions for themselves: . I have reviewed the following performance management consultant notes: Surgery, Neuro, Pulmonary note. I have reviewed the results of the following tests: CBC, CMP, CT brain, Procal, Echo. I have ordered the following tests: I have discussed the care of this patient with the following independent historian: . I have independently interpreted the following test below: I have discussed the management of this patient with the following physician: Dr. Darden Objective - Vital Signs Vital signs: Vital Signs Temp 98.6 F 09/21/24 08:00 Pulse 55 L 09/21/24 15:42 Resp 17 09/21/24 15:30 BP 123/51 09/21/24 15:30 Pulse Ox 95 09/21/24 15:30 FiO2 40 09/19/24 09:31 Intake & Output 09/20/24 09/21/24 09/21/24 18:59 06:59 18:59 Intake Total 550 650 821.986 Output Total 0 1630 630 Balance 550 -980 191.986 Weight 62.7 kg Intake: IV 500 650 400 Dextrose 5%-0.9% NaCl 1, 500 650 400 000 ml @ 50 mls/hr IV . Q20H [facility] Rx#:[id number] Intake, IV Titration 50 181.986 Amount DOPamine DRIP 800 mg In 181.986 Dextrose/Water 1 250ml. bag @ 2.5 MCG/KG/MIN 3. 084 mls/hr IV .Q24H [facility]STIN Rx#:[id number] Dextrose 5%-0.9% NaCl 1, 50 000 ml @ 50 mls/hr IV . Q20H [facility]STIN Rx#:[id number] Oral 240 Output: Urine 0 1630 630 Other: Voiding Method Indwelling Catheter Indwelling Catheter # Voids 1 # Bowel Movements 1 - Labs CBC & Chem 7: 09/21/24 10:00 09/21/24 10:00 Labs: Abnormal Lab Results - Last 24 Hours (Table) 09/20/24 09/20/24 09/21/24 Range/Units 17:37 21:52 10:00 Chloride 114 H (98-107) mmol/L BUN 20 H (7-17) mg/dL Glucose 120 H (74-99) mg/dL POC Glucose (mg/dL) 115 H 119 H (70-110) mg/dL 09/21/24 Range/Units 12:37 Chloride (98-107) mmol/L BUN (7-17) mg/dL Glucose (74-99) mg/dL POC Glucose (mg/dL) 127 H (70-110) mg/dL Microbiology - Last 24 Hours (Table) 09/19/24 04:30 Gram Stain - Final Sputum Sputum Culture - Final Klebsiella oxytoca
[2024-09-21 20:01] LABS: Glucose,Whole Blood 128 mg/dL (70-110)
[2024-09-21] MEDS: QUEtiapine 25 MG TAB PO SCH (20:31)
--- NOTE | 2024-09-21 20:39 | P.PN ---
Subjective HISTORY OF PRESENTING ILLNESS This is a pleasant 69-year-old with past medical history significant for anxiety, bipolar disorder, blindness in left eye, DM2, hypothyroidism, hyperlipidemia, , mild CAD, HTN, CVA/ TIA and bradycardia who presents secondary to altered mental status. Patient follows in the office with myself. Patient has a history of [facility] 2018 with mild CAD. She has a history of bradycardia in the past however was felt asymptomatic. She presented after being found with AMS. Family states she was acting fine and then after approximately 2 hrs was found confused on her chair with a bruise on her forehead. No recent fevers or chills. She was significantly altered and therefore intubated and then extubated after around 24 hrs. She has been having intermittent bradycardic episodes with HR's down into the low 30's however maintained BP and no complaints of lightheadedness however patient not answering questions appropria tely. Her HR will increase with agitation. TSH <0.015 but T4 normal. Denies chest pain. 09/21 patient seen and examined. Patient somewhat more alert today. She has remained in normal sinus rhythm with heart rates more predominantly in the 50s. Has not needed the TVP currently on lower rate of 40. Dopamine drip was discontinued this morning and heart rate still predominantly stable in the 50s. PHYSICAL EXAMINATION Vital signs reviewed. CONSTITUTIONAL: No apparent distress, shaking and altered HEENT: Head is normocephalic. Pupils are equal, round. Sclerae anicteric. Mucous membranes of the mouth are moist. No JVD. No carotid bruit. CHEST EXAMINATION: Lungs are clear to auscultation. No chest wall tenderness is noted on palpation or with deep breathing. HEART EXAMINATION: Regular rate and rhythm. S1, S2 heard. No murmurs, gallops or rub. ABDOMEN: Soft, nontender. Positive bowel sounds. EXTREMITIES: 2+ peripheral pulses, no lower extremity edema and no calf tenderness. NEUROLOGIC EXAMINATION: Patient is awake, confused ASSESSMENT AMS Sinus bradycardia, likely some degree of SSS. Possible Cushings reflex from brain pathology Bipolar disorder HTN HLD Mild CAD by [facility] 2018 Hx of CVA/TIA DM2 Presumed fall/ syncope with head trauma Subclinical hyperthyroidism PLAN Patient with bradycardia exacerbated when she was more confused, somnolent. Possibly related to increased vagal tone. With higher heart rates patient's mental status did not improve and altered mental status does not appear related to hyperperfusion from bradycardia. Continue with current supportive care. likely has some degree of sick sinus syndrome however no current obvious indications for permanent pacemaker. Likely continue TVP at lower rate for a full 24 hours off of the dopamine drip. If no further significant bradycardia likely discontinue TVP tomorrow. Objective - Vital Signs Vital signs: Vital Signs Temp 99 F 09/21/24 16:00 Pulse 56 L 09/21/24 19:00 Resp 20 09/21/24 19:00 BP 110/55 09/21/24 19:00 Pulse Ox 94 L 09/21/24 19:00 FiO2 40 09/19/24 09:31 Intake & Output 09/21/24 09/21/24 09/22/24 06:59 18:59 06:59 Intake Total 650 1191.986 50 Output Total 1630 740 30 Balance -980 451.986 20 Weight 62.7 kg Intake: IV 650 550 50 Dextrose 5%-0.9% NaCl 1, 650 550 50 000 ml @ 50 mls/hr IV . Q20H [facility]STIN Rx#:[id number] Intake, IV Titration 181.986 Amount DOPamine DRIP 800 mg In 181.986 Dextrose/Water 1 250ml. bag @ 2.5 MCG/KG/MIN 3. 084 mls/hr IV .Q24H [facility]STIN Rx#:[id number] Oral 460 Output: Urine 1630 740 30 Other: Voiding Method Indwelling Catheter Indwelling Catheter - Labs CBC & Chem 7: 09/21/24 10:00 09/21/24 10:00 Labs: Abnormal Lab Results - Last 24 Hours (Table) 09/20/24 09/21/24 09/21/24 Range/Units 21:52 10:00 12:37 Chloride 114 H (98-107) mmol/L BUN 20 H (7-17) mg/dL Glucose 120 H (74-99) mg/dL POC Glucose (mg/dL) 119 H 127 H (70-110) mg/dL 09/21/24 Range/Units 20:00 Chloride (98-107) mmol/L BUN (7-17) mg/dL Glucose (74-99) mg/dL POC Glucose (mg/dL) 128 H (70-110) mg/dL Microbiology - Last 24 Hours (Table) 09/19/24 04:30 Gram Stain - Final Sputum Sputum Culture - Final Klebsiella oxytoca
[2024-09-22 06:43] LABS: Glucose,Whole Blood 88 mg/dL (70-110)
[2024-09-22] MEDS: HALOPERIDOL LACTATE 5 MG/ML 1 ML VIAL IVP STA (09:00)
[2024-09-22] MEDS: QUEtiapine 50 MG TAB PO SCH (09:01)
--- NOTE | 2024-09-22 09:37 | P.PN ---
Subjective Progress Note Date: 09/22/24 Yasmin Cordova 69 year old F with of Bipolar disorder, hypertension, diabetes mellitus, hypothyroidism, history of CVA/TIA, hyperlipidemia presents with altered mental status. Per report in chart, she was last seen normal at 5AM, sleeping comfortably when the left for work. When her vacuum pan operator came around noon, she noticed the kitchen was a mess and the patient was laying on the couch, unresponsive, with a bruise on her forehead. EMS was called. While in ER she began to have hypoxic respiratory distress and was subsequently intubated and began on propofol. Initial lab findings were unremarkable bedside BUN 28, Cr 1.33, glu 106. Lactic acid 1.2. Troponin < 0.012. EKG sinus rhythm with no ST elevations depression or T wave abnormalities, RBBB pattern. UDS was positive for oxycodone and TCA carbamazepine elevated 13.8, otherwise unremarkable. Today patient was seen in the ICU and was initially intubated and sedated on propofol. ABG 183/44/7.36. Weaning parameters were assessed and decision was made to extubate. Patient is now on nasal cannula 4 L. IV normal saline at 50 ml/hr. Chest x-ray with no acute process. CT head and neck with some degenerative disc disease but otherwise no acute intracranial process or fracture. CT chest with no acute process however revealed several healing rib fractures and with minimal bibasilar atelectasis. Today's labs WBC 7.4, he moglobin 10.6, sodium 139, potassium 4.3, bicarb 19, BUN 25, creatinine 0.74. Patient continues to be lethargic but is otherwise in stable condition. She will continue to be monitored in the ICU. Patient seen and examined 09/20/2024 in the ICU. Yesterday patient was downgraded from the ICU, and overnight became bradycardic and began dopamine infusion per cardiology recommendations and decision was made to return to the ICU. Also her metabolic encephalopathy has worsened since yesterday she is now A+O x 1. Today, she is saturating well on room air, however remains bradycardic in the mid 30s to mid 50s pulse. Cardiology was notified and will see patient. Current IV lines are dopamine 5 mcg/kg/min and D5 with 0.9 normal saline at 50 mL/h. Today's labs WBC 9.0, hemoglobin 12.3, sodium 142, potassium 3.9, bicarb 22, BUN 22 unremarkable. Echocardiogram showed normal left ventricular function and EEG showed abnormal slowing. Due to bradycardia she is currently too unstable to proceed with MRI of brain at this time. We will continue to monitor in the ICU, prognosis is guarded. Patient seen and examined on 09/21/2024 in the ICU. Yesterday patient seen by cardiology and it was decided that temporary venous pacemaker would be placed, which was done without complications. Today her mentation seems to be improving slowly, A+O x 2. She is on room air. Current IV lines are dopamine 5 mcg/kg/minute, D5W NS 50 mL/h, NS at 20 mL/h. Home Seroquel 50 mg 4 times daily, gabapentin, Tegretol, fentanyl patch was restarted. Labs today WBC 9.0, hemoglobin 12.3, sodium 142, potassium 3.9, bicarb 22, BUN 22, creatinine 0.60 troponin 0.024. Awaiting procalcitonin. Sputum culture Klebsiella oxytoca. Bilateral knee x-ray without fracture. Repeat CT head impression with no acute process. Remains too unstable for MRI of brain. She will continue to be monitored in the ICU. Patient seen and examined on 09/22/2024 in the ICU. Temporary venous pacemaker to be removed by cardiology likely to be discontinued if no further significant bradycardia while off dopamine for 24 hours. Today patient's mentation is A+O x 2, however she became acutely agitated this morning and was given Haldol 5 mg. She was also seen by psychiatry who suggested reorientation and avoid use of narcotics and SEAMER [employer]IC BAND sedatives and limit anticholinergic medication, change Seroquel 50 daily and 75 mg nightly. She is on room air. Current IV lines are D5W NS 50 mL/h, NS at 20 mL/h. Labs today are still pending. Procalcitonin 0.04. She will continue to be monitored in the ICU. Objective - Vital Signs Vital signs: Vital Signs Temp 98.2 F 09/22/24 04:00 Pulse 46 L 09/22/24 07:43 Resp 30 H 09/22/24 07:00 BP 149/55 09/22/24 07:00 Pulse Ox 96 09/22/24 07:43 FiO2 40 09/19/24 09:31 Intake & Output 09/21/24 09/22/24 09/22/24 18:59 06:59 18:59 Intake Total 1191.986 890 Output Total 740 390 Balance 451.986 500 Intake: IV 550 890 0.9 KVO (Sheath) 240 Dextrose 5%-0.9% NaCl 1, 550 650 000 ml @ 50 mls/hr IV . Q20H [facility]STIN Rx#:[id number] Intake, IV Titration 181.986 Amount DOPamine DRIP 800 mg In 181.986 Dextrose/Water 1 250ml. bag @ 2.5 MCG/KG/MIN 3. 084 mls/hr IV .Q24H CHRISTIN Rx#:[id number] Oral 460 Output: Urine 740 390 Other: Voiding Method Indwelling Catheter Indwelling Catheter # Bowel Movements 1 - Exam GENERAL: Not in any acute distress. Well developed, well nourished. On room air HEENT: traumatic contusion R eyebrow otherwise, unable to further assess CARDIOVASCULAR: S1 and S2 present. No murmurs, rubs, or gallops. PULMONARY: Chest is clear to auscultation, no wheezing or crackles. ABDOMEN: Soft, nontender, nondistended, normoactive bowel sounds. No palpable organomegaly. MUSCULOSKELETAL: No joint swelling or deformity. EXTREMITIES: No cyanosis, clubbing, or pedal edema. NEUROLOGICAL: poor effort, however moving all extremities PSYCH: The patient is alert and oriented x2, to person and place, fluctuating mentation SKIN: contusion R eyebrow. No rashes. no petechiae. - Labs CBC & Chem 7: 09/21/24 10:00 09/21/24 10:00 Labs: Abnormal Lab Results - Last 24 Hours (Table) 09/21/24 09/21/24 09/21/24 Range/Units 10:00 12:37 20:00 Chloride 114 H (98-107) mmol/L BUN 20 H (7-17) mg/dL Glucose 120 H (74-99) mg/dL POC Glucose (mg/dL) 127 H 128 H (70-110) mg/dL Microbiology - Last 24 Hours (Table) 09/19/24 04:30 Gram Stain - Final Sputum Sputum Culture - Final Klebsiella oxytoca Assessment and Plan Assessment: Acute metabolic encephalopathy, may be secondary to antipsychotic medication withdrawal Acute hypoxic respiratory failure, extubated on 09/19/2024, resolved Sinus Bradycardia JEAN versus CKD, resolved Bipolar disorder Hypertension Diabetes mellitus Hypothyroidism History of CVA/TIA Plan: Weaning parameters assessed and extubated on 09/19/2024, now on room air Resume home Tegretol, Fentanyl patch, Gabapentin Seroquel 50 mg daily, 75 mg nightly Telemetry monitoring, Seizure and Fall precautions. Advanced neurochecks. Repeat CT head, EEG, echo non revealing Sputum culture with Klebsiella oxytoca Neurology following, continue Keppra 500 mg BID for seizure prophylaxis Continue D5 0.9 NS at 50 mL/h Continue normal saline 0.9 at 20 mL/h Discontinue dopamine infusion per cardiology recommendations Holding home lisinopril Continue Accu-Cheks Continue Synthroid Continue Plavix and Crestor Continue DVT and GI prophylaxis PT/OT consulted Prognosis is guarded Patient will continue to be monitored in ICU for now
[2024-09-22 10:14] LABS: HCT 33.7 % (34.0-46.0); HGB 11.2 gm/dL (11.4-16.0); MCH 30.2 pg (25.0-35.0); MCHC 33.2 g/dL (31.0-37.0); Mean Platelet Volume 7.1; Platelet Count 196 k/uL (150-450); RBC 3.71 m/uL (3.80-5.40); RDW 12.7 % (11.5-15.5); WBC 7.1 k/uL (3.8-10.6)
[2024-09-22 10:24] LABS: ALT 25 U/L (4-34); AST 26 U/L (14-36); African American GFR (CKD) >90 (>60 ml/min/1.73 sqM); Albumin 3.2 g/dL (3.5-5.0); Alkaline Phosphatase 101 U/L (38-126); Anion Gap 7 mmol/L; Blood Urea Nitrogen 20 mg/dL (7-17); Calcium 8.5 mg/dL (8.4-10.2); Carbon Dioxide 19 mmol/L (22-30); Chloride 115 mmol/L (98-107); Glucose 133 mg/dL (74-99); Non-African American GFR(CKD) >90 (>60 ml/min/1.73 sqM); Potassium 3.5 mmol/L (3.5-5.1); Sodium 141 mmol/L (137-145); Total Bilirubin 0.6 mg/dL (0.2-1.3); Total Protein 5.8 g/dL (6.3-8.2)
[2024-09-22] MEDS ORDERED: Potassium Replacement Protocol 1 EACH MISC MISCELLANE PRN (10:34)
[2024-09-22] MEDS: POTASSIUM CHLORIDE ER 20 MEQ TAB.ER PO SCH (11:34)
[2024-09-22] MEDS ORDERED: ZINC OXIDE PASTE (Z-GUARD) 1 APPLIC TOPICAL PRN (11:38)
[2024-09-22 11:54] LABS: Glucose,Whole Blood 115 mg/dL (70-110)
--- NOTE | 2024-09-22 13:35 | P.PN ---
Subjective Progress Note Date: 09/22/24 69 year old F with PMH of Bipolar disorder, HTN, DM, HTN, Hypothyroid, h/o CVA/TIA, HLD presents to the ED for altered mentation. She is currently intubated and history is obtained from the . She was last seen normal at 5AM, sleeping comfortably when the left for work. 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 EMS was called. In the ED BP 146/67, HR 60, RR 7, 100% on BVM. She was given narcan with minimal improvement. She was intubated in the ED to protect her airway. CBC, Coag panel, CMP significant for BUN 28, Cr 1.33, glu 106. Lactic acid 1.2. Troponin < 0.012. EKG sinus rhythm with RBBB and L anterior fascicular block. UDS + oxycodone, TCA. Serum EtOH < 10. CT brain, C-spine, face showed small forehead contusion, moderate DJD, grade 1 anterolisthesis C4 on C5, C7 on T1. CT chest/abd/pelvis showed healing 7th and 8th rib fracture, healing L1 and L2 transverse process fracture, moderate COPD with bibasilar atelectasis/consolidation. 09/19 Patient was seen and examined. Successfully extubated today. Discussed with Brenda, EEG negative, decreased Keppra to 500 mg IV BID. CBC and CMP significant for RBC 3.55, Hg 10.6, Hct 32.9, Cl 116, bicarb 19, BUN 25, alb 3.4. Phos 4.9. Mag 1.9. B12 518. Folate 25.5. TSH < 0.015, FT4 1.81. Ammonia < 9. Carbamazepine 13.8. HR in the 40s. Repeat brain CT neg. 09/20 Patient was seen and examined. More confused today. Appears restless. Last night HR as low as 20s, started on Dopamine drip and transferred to ICU. CBC and BMP significant for Cl 112, BUN 22, glu 104. Mag 1.8. Plans for TVP today. Discussed with Dr. Gutierrez, repeat CT brain negative. 09/21 Patient was seen and examined. She continues to be restless. CT brain ordered yesterday which showed no acute pathology. She did undergo TVP yesterday, HR in the 60s. CBC and CMP significant for Cl 114, BUN 20, glu 120. Procal 0.04. Echo EF 50-55%. 09/22 Patient was seen and examined. Sitter at bedside. Mentation improved. Needed Haldol this morning. HR in the 50-60s with TVP. CBC and CMP significant for RBC 3.71, Hg 11.2, Hct 33.7, Cl 115, bicarb 19, glu 133, alb 3.2. General: NAD Derm: warm, dry Head: atraumatic, normocephalic, symmetric, contusion forehead Eyes: no lid lag, anicteric sclera, pinpoint R pupil, aphakia L eye Mouth: no lip lesion, mucus membranes moist Cardiovascular: S1S2 elan, no murmur Lungs: Decreased BS bilateral, no rhonchi, no rales Abdominal: soft, non tender to palpation Ext: no gross muscle atrophy, no edema, no contractures Neuro: No FND Psych: AO x 2. Restlessness (improved) Based on my assessment of this patient, this patient meets a high complexity level of care. Sinus bradycardia: Status post TVP by Cardiology 09/20. Avoid AV katerin blockers. Acute metabolic encephalopathy: CVA versus concussion versus seizure versus cardiac cause. Also polypharmacy (patient has been on the same medication for years). Restart Tegretol, Fentanyl, Gabapentin, and Seroquel. Carbamazepine levels 13.8. ACS ruled out. Echo as above. Telemetry monitoring. Seizure and Fall precautions. Advanced neurochecks. Accuchecks Q6H. Consider MRI brain when stable. Neurology on board. Delirium: Seroquel dose adjusted to 50 mg PO QD and 75 mg PO QHS. Restart Tegretol, Fentanyl, Gabapentin. Frequent re-direction. Window side bed. Psych on board. Acute hypoxic respiratory failure secondary to above Bipolar disorder: Tegetrol and Seroquel as above. HTN: Hold Lisinopril. DM: Accuchecks Q6H. Hypothyroid: Synthroid 150 mcg PO QD. h/o CVA/TIA: Plavix 75 mg PO QD. Crestor 40 mg PO QD. Resolved: JEAN CODE STATUS: FULL CODE DVT Prophylaxis: Heparin SQ GI Prophylaxis: Protonix PO Designated medical POA if patient is not able to make medical decisions for themselves: . I have reviewed the following trousseau consultant notes: Surgery, Neuro, Pulmonary note. I have reviewed the results of the following tests: CBC, CMP. I have ordered the following tests: I have discussed the care of this patient with the following independent histor shitla: IRENE. I have independently interpreted the following test below: I have discussed the management of this patient with the following physician: Objective - Vital Signs Vital signs: Vital Signs Temp 98.7 F 09/22/24 08:00 Pulse 64 09/22/24 11:25 Resp 17 09/22/24 11:00 BP 96/44 09/22/24 11:00 Pulse Ox 97 09/22/24 11:00 FiO2 40 09/19/24 09:31 Intake & Output 09/21/24 09/22/24 09/22/24 18:59 06:59 18:59 Intake Total 1191.986 890 400 Output Total 740 390 225 Balance 451.986 500 175 Intake: IV 550 890 280 0.9 KVO (Sheath) 240 80 Dextrose 5%-0.9% NaCl 1, 550 650 200 000 ml @ 50 mls/hr IV . Q20H [facility]RISTIN Rx#:[id number] Intake, IV Titration 181.986 Amount DOPamine DRIP 800 mg In 181.986 Dextrose/Water 1 250ml. bag @ 2.5 MCG/KG/MIN 3. 084 mls/hr IV .Q24H CHRISTIN Rx#:[id number] Oral 460 120 Output: Urine 740 390 225 Other: Voiding Method Indwelling Catheter Indwelling Catheter Indwelling Catheter # Bowel Movements 1 1 - Labs CBC & Chem 7: 09/22/24 09:45 09/22/24 09:45 Labs: Abnormal Lab Results - Last 24 Hours (Table) 09/21/24 09/22/24 09/22/24 Range/Units 20:00 09:45 09:45 RBC 3.71 L (3.80-5.40) m/uL Hgb 11.2 L (11.4-16.0) gm/dL Hct 33.7 L (34.0-46.0) % Chloride 115 H (98-107) mmol/L Carbon Dioxide 19 L (22-30) mmol/L BUN 20 H (7-17) mg/dL Glucose 133 H (74-99) mg/dL POC Glucose (mg/dL) 128 H (70-110) mg/dL Total Protein 5.8 L (6.3-8.2) g/dL Albumin 3.2 L (3.5-5.0) g/dL 09/22/24 Range/Units 11:52 RBC (3.80-5.40) m/uL Hgb (11.4-16.0) gm/dL Hct (34.0-46.0) % Chloride (98-107) mmol/L Carbon Dioxide (22-30) mmol/L BUN (7-17) mg/dL Glucose (74-99) mg/dL POC Glucose (mg/dL) 115 H (70-110) mg/dL Total Protein (6.3-8.2) g/dL Albumin (3.5-5.0) g/dL Microbiology - Last 24 Hours (Table) 09/19/24 04:30 Gram Stain - Final Sputum Sputum Culture - Final Klebsiella oxytoca
--- NOTE | 2024-09-22 13:45 | P.PN ---
Subjective Progress Note Date: 09/22/24 I am following up with the patient and that she is accompanied with her and friends and it seems the patient is drastically better and the feels she is back to baseline. No further episodes of confusion. feels she has a raspy voice but that is her baseline. Regarding her falls, patient clarified and she stated that she fell as a result of there is liquid on the floor she fell another episode she fell because the cement was uneven, as well as fell when she was carrying heavy object at different time and was opening the door and the fall was mechanical. She denies any loss of consciousness. She does have underlying head-bobbing at baseline according to the patient . Objective - Vital Signs Vital signs: Vital Signs Temp 98.7 F 09/22/24 08:00 Pulse 64 09/22/24 11:25 Resp 17 09/22/24 11:00 BP 96/44 09/22/24 11:00 Pulse Ox 97 09/22/24 11:00 FiO2 40 09/19/24 09:31 Intake & Output 09/21/24 09/22/24 09/22/24 18:59 06:59 18:59 Intake Total 1191.986 890 400 Output Total 740 390 225 Balance 451.986 500 175 Intake: IV 550 890 280 0.9 KVO (Sheath) 240 80 Dextrose 5%-0.9% NaCl 1, 550 650 200 000 ml @ 50 mls/hr IV . Q20H [facility]STIN Rx#:[id number] Intake, IV Titration 181.986 Amount DOPamine DRIP 800 mg In 181.986 Dextrose/Water 1 250ml. bag @ 2.5 MCG/KG/MIN 3. 084 mls/hr IV .Q24H [facility]STIN Rx#:[id number] Oral 460 120 Output: Urine 740 390 225 Other: Voiding Method Indwelling Catheter Indwelling Catheter Indwelling Catheter # Bowel Movements 1 1 - Exam General: Lying in bed and is not in acute distress. HENT: Does have head popping movement upon talking and per that is baseline. Neuro: Patient is awake alert oriented to self time and did acknowledge that she is in the hospital but thought she was in [facility]. She is following simple commands. She was able to name objects correctly such as pen and phone. No aphasia Has retinal detachment on left eye but the right pupil is about 3 mm reactive to light. Visual forbes out of the right eye is normal. Has old left facial weakness that is mild. Sounds raspy. Tongue is midline moves [id number] without any difficulty The motor is normal throughout. Some of the work-up during this hospital visit consisted of: Temperature is 97.4 F on initial presentation. Respiratory rate is as low as 7 L CBC with differential is unremarkable Plasma lactic acid venous 1.2. Ammonia level is less than 9. TSH: <0.015 and free T4: 1.81 B12: 518, serum folate: 25.50 Creatinine is 1.33, initial serum glucose is 106, sodium, AST ALT calcium is within normal limits Urine drug screen is positive for oxycodone and tricyclic antidepressant. Otherwise rest is nondetected and serum alcohol is less than 10 Urinalysis is unremarkable for any acute urinary tract infection. CT of the head and cervical spine is reported as no acute intracranial process. Small forehead soft tissue contusion. No acute facial bone fracture. No evidence of cervical spine fracture. Moderate multilevel degenerative disc disease. Grade 1 anterior listhesis of C4 on C5 and C7 on T1 favored to be degenerative. Personally reviewed the CT of the head and I agree there is no acute or subacute stroke. There is no mass effect. CT lumbar and thoracic spine I reviewed the report and it shows heal. 2D echo: Left ventricular ejection fraction of 50 to 55%. No obvious regional wall motion abnormality. No significant valvular dysfunction. CT of the head is no acute intracranial process. Redemonstration of small forehead soft tissue contusion. Routine EEG the background slowing is suggestive of moderate encephalopathy. There is no focal slowing, OptiForm discharge or seizure on the EEG. Repeat CT head on 09/21/2024: No acute intracranial process. - Labs CBC & Chem 7: 09/22/24 09:45 09/22/24 09:45 Labs: Abnormal Lab Results - Last 24 Hours (Table) 09/21/24 09/22/24 09/22/24 Range/Units 20:00 09:45 09:45 RBC 3.71 L (3.80-5.40) m/uL Hgb 11.2 L (11.4-16.0) gm/dL Hct 33.7 L (34.0-46.0) % Chloride 115 H (98-107) mmol/L Carbon Dioxide 19 L (22-30) mmol/L BUN 20 H (7-17) mg/dL Glucose 133 H (74-99) mg/dL POC Glucose (mg/dL) 128 H (70-110) mg/dL Total Protein 5.8 L (6.3-8.2) g/dL Albumin 3.2 L (3.5-5.0) g/dL 09/22/24 Range/Units 11:52 RBC (3.80-5.40) m/uL Hgb (11.4-16.0) gm/dL Hct (34.0-46.0) % Chloride (98-107) mmol/L Carbon Dioxide (22-30) mmol/L BUN (7-17) mg/dL Glucose (74-99) mg/dL POC Glucose (mg/dL) 115 H (70-110) mg/dL Total Protein (6.3-8.2) g/dL Albumin (3.5-5.0) g/dL Microbiology - Last 24 Hours (Table) 09/19/24 04:30 Gram Stain - Final Sputum Sputum Culture - Final Klebsiella oxytoca Assessment and Plan Assessment: This is a 69-year-old woman who was found today by the people around noon on the chair and was responsive. It seems the patient has a bruise over the forehead. According to she had some falls in the past when she gets up her balance is off. She does not have any history of seizure. She has chronic low back pain and is on multiple pain medication but they are chronic and nothing has been modified. Per the she was notified that she had respiratory arrest en route to the hospital by EMS as well as while in the ED. She is intubated on the ventilator. Episode of unresponsiveness unsure cause. Possible during this event was symptomatic bradycardia. Routine EEG is negative for seizure or discharge Altered mental status: Seems possible due to withdrawal from her antipsychotic medication (Seroquel) and today there is some improvement. Had three CT head and negative for stroke, EEG is negative for seizure or discharges---mentation has improved and is back to baseline. Bradycardia in 30's s/p temporary venous pacemaker Acute hypoxic respiratory failure patient is intubated on the ventilator--extubated yesterday . Falls and it seems the patient had mechanical falls without any loss of consciousness or jerking of any extremity. Had falls due to the floor had liquid or the cement was uneven. Acute Kidney insufficiency History of TIAs History of falls of unknown exact etiology History of low back pain and had multiple surgeries and is on multiple pain medication and sees a pain specialist History of bipolar Plan: On Keppra 500mg bid (started during this hospital visit) and will taper down to 250mg twice daily and if still doing well will stop by tomorrow. Once the patient is more stable recommend to pursue MRI Brain. Psychiatry team is consulted. Her Seroquel was held during this admission and it was resumed on 09/20/2024. This does not seems opiate withdrawal. Seizure precautions seizure pads Cardiology is consulted. Will defer the rest of the medical management to primary and other specialist. Discussed with the patient, her is at bedside and as well as the primary team. Will follow-up Sporadically. Time with Patient: Less than 30
[2024-09-22 16:32] LABS: Glucose,Whole Blood 115 mg/dL (70-110)
--- NOTE | 2024-09-22 17:14 | P.EPPROC ---
- EP Procedure Note Date of Procedure: 09/22/24 Electrophysiology Procedure Note: Pacemaker wire was removed. No complications Mild compression after venous sheath removal. Out of bed after 2 hours
--- NOTE | 2024-09-22 17:15 | P.PN ---
Subjective Progress Note Date: 09/22/24 HISTORY OF PRESENTING ILLNESS This is a pleasant 69-year-old with past medical history significant for an xiety, bipolar disorder, blindness in left eye, DM2, hypothyroidism, hyperlipidemia, , mild CAD, HTN, CVA/ TIA and bradycardia who presents secondary to altered mental status. Patient follows in the office with myself. Patient has a history of [facility] 2018 with mild CAD. She has a history of bradycardia in the past however was felt asymptomatic. She presented after being found with AMS. Family states she was acting fine and then after approximately 2 hrs was found confused on her chair with a bruise on her forehead. No recent fevers or chills. She was significantly altered and therefore intubated and then extubated after around 24 hrs. She has been having intermittent bradycardic episodes with HR's down into the low 30's however maintained BP and no complaints of lightheadedness however patient not answering questions appropriately. Her HR will increase with agitation. TSH <0.015 but T4 normal. Denies chest pain. 09/21 patient seen and examined. Patient somewhat more alert today. She has remained in normal sinus rhythm with heart rates more predominantly in the 50s. Has not needed the TVP currently on lower rate of 40. Dopamine drip was discontinued this morning and heart rate still predominantly stable in the 50s. September 22 Seen and examined at bedside. Blood pressure and heart rate are within normal limits. Heart rate is around 60 to 70 bpm. Not requiring any pacemaker use. PHYSICAL EXAMINATION Vital signs reviewed. CONSTITUTIONAL: No apparent distress, shaking and altered HEENT: Head is normocephalic. Pupils are equal, round. Sclerae anicteric. Mucous membranes of the mouth are moist. No JVD. No carotid bruit. CHEST EXAMINATION: Lungs are clear to auscultation. No chest wall tenderness is noted on palpation or with deep breathing. HEART EXAMINATION: Regular rate and rhythm. S1, S2 heard. No murmurs, gallops or rub. ABDOMEN: Soft, nontender. Positive bowel sounds. EXTREMITIES: 2+ peripheral pulses, no lower extremity edema and no calf tend erness. NEUROLOGIC EXAMINATION: Patient is awake, confused ASSESSMENT AMS Sinus bradycardia, likely some degree of SSS. Possible Cushings reflex from brain pathology Bipolar disorder HTN HLD Mild CAD by [facility] 2018 Hx of CVA/TIA DM2 Presumed fall/ syncope with head trauma Subclinical hyperthyroidism Echocardiogram showed EF of 50 to 55%, with obvious regional wall motion abnormality Plan Patient is stable from cardiac standpoint. Cardiology team will sign off. No further episodes of bradycardia. Avoid any further AV katerin blocking agents. Objective - Vital Signs Vital signs: Vital Signs Temp 98 F 09/22/24 16:00 Pulse 70 09/22/24 17:00 Resp 20 09/22/24 17:00 BP 112/48 09/22/24 17:00 Pulse Ox 98 09/22/24 17:00 FiO2 40 09/19/24 09:31 Intake & Output 09/21/24 09/22/24 09/22/24 18:59 06:59 18:59 Intake Total 1191.986 890 990 Output Total 740 390 410 Balance 451.986 500 580 Intake: IV 550 890 630 0.9 KVO (Sheath) 240 180 Dextrose 5%-0.9% NaCl 1, 550 650 450 000 ml @ 50 mls/hr IV . Q20H [facility]STIN Rx#:[id number] Intake, IV Titration 181.986 Amount DOPamine DRIP 800 mg In 181.986 Dextrose/Water 1 250ml. bag @ 2.5 MCG/KG/MIN 3. 084 mls/hr IV .Q24H CHRISTIN Rx#:[id number] Oral 460 360 Output: Urine 740 390 410 Other: Voiding Method Indwelling Catheter Indwelling Catheter Indwelling Catheter # Bowel Movements 1 1 - Labs CBC & Chem 7: 09/22/24 09:45 09/22/24 09:45 Labs: Abnormal Lab Results - Last 24 Hours (Table) 09/21/24 09/22/24 09/22/24 Range/Units 20:00 09:45 09:45 RBC 3.71 L (3.80-5.40) m/uL Hgb 11.2 L (11.4-16.0) gm/dL Hct 33.7 L (34.0-46.0) % Chloride 115 H (98-107) mmol/L Carbon Dioxide 19 L (22-30) mmol/L BUN 20 H (7-17) mg/dL Glucose 133 H (74-99) mg/dL POC Glucose (mg/dL) 128 H (70-110) mg/dL Total Protein 5.8 L (6.3-8.2) g/dL Albumin 3.2 L (3.5-5.0) g/dL 09/22/24 09/22/24 Range/Units 11:52 16:30 RBC (3.80-5.40) m/uL Hgb (11.4-16.0) gm/dL Hct (34.0-46.0) % Chloride (98-107) mmol/L Carbon Dioxide (22-30) mmol/L BUN (7-17) mg/dL Glucose (74-99) mg/dL POC Glucose (mg/dL) 115 H 115 H (70-110) mg/dL Total Protein (6.3-8.2) g/dL Albumin (3.5-5.0) g/dL
[2024-09-22 19:52] LABS: Glucose,Whole Blood 132 mg/dL (70-110)
[2024-09-22] MEDS: levETIRAcetam 250 MG TAB PO SCH (20:33)
[2024-09-23 06:43] LABS: Glucose,Whole Blood 77 mg/dL (70-110)
--- NOTE | 2024-09-23 10:30 | P.PN ---
Subjective Progress Note Date: 09/23/24 Principal diagnosis: Bradycardia. Yasmin Cordova 69 year old F with of Bipolar disorder, hypertension, diabetes mellitus, hypothyroidism, history of CVA/TIA, hyperlipidemia presents with altered mental status. Per report in chart, she was last seen normal at 5AM, sleeping comfortably when the left for work. When her graphic arts instructor came around noon, she noticed the kitchen was a mess and the patient was laying on the couch, unresponsive, with a bruise on her forehead. EMS was called. While in ER she began to have hypoxic respiratory distress and was subsequently intubated and began on propofol. Initial lab findings were unremarkable bedside BUN 28, Cr 1.33, glu 106. Lactic acid 1.2. Troponin < 0.012. EKG sinus rhythm with no ST elevations depression or T wave abnormalities, RBBB pattern. UDS was positive for oxycodone and TCA carbamazepine elevated 13.8, otherwise unremarkable. Today patient was seen in the ICU and was initially intubated and sedated on propofol. ABG 183/44/7.36. Weaning parameters were assessed and decision was made to extubate. Patient is now on nasal cannula 4 L. IV normal saline at 50 ml/hr. Chest x-ray with no acute process. CT head and neck with some degenerative disc disease but otherwise no acute intracranial process or fracture. CT chest with no acute process however revealed several healing rib fractures and with minimal bibasilar atelectasis. Today's labs WBC 7.4, hemoglobin 10.6, sodium 139, potassium 4.3, bicarb 19, BUN 25, creatinine 0.74. Patient continues to be lethargic but is otherwise in stable condition. She will continue to be monitored in the ICU. Patient seen and examined 09/20/2024 in the ICU. Yesterday patient was downgraded from the ICU, and overnight became bradycardic and began dopamine infusion per cardiology recommendations and decision was made to return to the ICU. Also her metabolic encephalopathy has worsened since yesterday she is now A+O x 1. Today, she is saturating well on room air, however remains bradycardic in the mid 30s to mid 50s pulse. Cardiology was notified and will see patient. Current IV lines are dopamine 5 mcg/kg/min and D5 with 0.9 normal saline at 50 mL/h. Today's labs WBC 9.0, hemoglobin 12.3, sodium 142, potassium 3.9, bicarb 22, BUN 22 unremarkable. Echocardiogram showed normal left ventricular function and EEG showed abnormal slowing. Due to bradycardia she is currently too unstable to proceed with MRI of brain at this time. We will continue to monitor in the ICU, prognosis is guarded. Patient seen and examined on 09/21/2024 in the ICU. Yesterday patient seen by cardiology and it was decided that temporary venous pacemaker would be placed, which was done without complications. Today her mentation seems to be improving slowly, A+O x 2. She is on room air. Current IV lines are dopamine 5 mcg/kg/minute, D5W NS 50 mL/h, NS at 20 mL/h. Home Seroquel 50 mg 4 times daily, gabapentin, Tegretol, fentanyl patch was restarted. Labs today WBC 9.0, hemoglobin 12.3, sodium 142, potassium 3.9, bicarb 22, BUN 22, creatinine 0.60 troponin 0.024. Awaiting procalcitonin. Sputum culture Klebsiella oxytoca. Bilateral knee x-ray without fracture. Repeat CT head impression with no acute process. Remains too unstable for MRI of brain. She will continue to be monitored in the ICU. Patient seen and examined on 09/22/2024 in the ICU. Temporary venous pacemaker to be removed by cardiology likely to be discontinued if no further significant bradycardia while off dopamine for 24 hours. Today patient's mentation is A+O x 2, however she became acutely agitated this morning and was given Haldol 5 mg. She was also seen by psychiatry who suggested reorientation and avoid use of narcotics and SCREEN PRINTER HELPER sedatives and limit anticholinergic medication, change Seroquel 50 daily and 75 mg nightly. She is on room air. Current IV lines are D5W NS 50 mL/h, NS at 20 mL/h. Labs today are still pending. Procalcitonin 0.04. She will continue to be monitored in the ICU. Progress note dated September 23, 2024. The patient is seen today in room 263. She is sitting in a chair next to her hospital bed. She is currently on room air. The patient is getting dextrose with normal saline at 50 cc an hour. The IV can be discontinued. The patient is eating and drinking. In addition, the patient could be transferred out to the cardiology floor. No new labs today other than a glucose of 77. Objective - Vital Signs Vital signs: Vital Signs Temp 98.2 F 09/23/24 08:00 Pulse 81 09/23/24 08:00 Resp 18 09/23/24 08:00 BP 152/81 09/23/24 08:00 Pulse Ox 96 09/23/24 08:00 FiO2 40 09/19/24 09:31 Intake & Output 09/22/24 09/23/24 09/23/24 18:59 06:59 18:59 Intake Total 1230 1140 220 Output Total 510 450 500 Balance 720 690 -280 Intake: IV 750 600 100 0.9 KVO (Sheath) 200 Dextrose 5%-0.9% NaCl 1, 550 600 100 000 ml @ 50 mls/hr IV . Q20H [facility] Rx#:[id number] Oral 480 540 120 Output: Urine 510 450 500 Other: Voiding Method Indwelling Catheter Toilet # Bowel Movements 1 1 1 - Exam No acute distress, oriented 3. On room air. HEENT examination is grossly unremarkable. Mucous membranes are moist. No oral lesions. Bruising and ecchymosis is noted to her forehead. Neck supple. Full range of motion. No adenopathy thyromegaly or neck vein distention. Cardiovascular examination reveals regular rhythm rate. S1-S2 normal. No S3 or S4. No discernible murmur noted. Lungs reveal clear breath sounds. Breath sounds are equal bilaterally. No adventitious lung sounds including wheezes rhonchi or crackles. Abdomen soft bowel sounds are heard. No masses or tenderness. Extremities are intact. No cyanosis clubbing or edema. Skin is without rash or lesion. Neurologic examination is brief but nonfocal. - Labs CBC & Chem 7: 09/22/24 09:45 09/22/24 09:45 Labs: Abnormal Lab Results - Last 24 Hours (Table) 09/22/24 09/22/24 09/22/24 Range/Units 11:52 16:30 19:51 POC Glucose (mg/dL) 115 H 115 H 132 H (70-110) mg/dL Assessment and Plan Assessment: Acute metabolic encephalopathy, improved. Acute hypoxemic respiratory failure, s/p extubation on September 19, 2024. Sinus bradycardia. Acute kidney injury versus CKD, resolved. Bipolar disorder. History of hypertension. Diabetes mellitus. Hypothyroidism. History of CVA/TIA. Plan: Plan dated September 23, 2024. The patient appears to be doing much better. The patient is seen today in room 263. She is on room air. She is receiving dextrose with normal saline at 50 cc an hour, which will be discontinued. The patient is eating and drinking appropriately. Labs, x-rays, and all medications are reviewed. The patient is stable to be transferred to the 3 S. cardiology floor. We will continue to follow the patient. The patient continues with DVT and GI prophylaxis. Time with Patient: Less than 30
[2024-09-23 11:24] LABS: Glucose,Whole Blood 95 mg/dL (70-110)
--- NOTE | 2024-09-23 14:45 | P.PN ---
Subjective Progress Note Date: 09/23/24 69 year old F with PMH of Bipolar disorder, HTN, DM, HTN, Hypothyroid, h/o CVA/TIA, HLD presents to the ED for altered mentation. She is currently intubated and history is obtained from the . She was last seen normal at 5AM, sleeping comfortably when the left for work. When her acid polymerization operator came around noon, she noticed the kitchen was a mess and the patient was laying on the couch, unresponsive, with a bruise on her forehead. EMS was called. In the ED BP 146/67, HR 60, RR 7, 100% on BVM. She was given narcan with minimal improvement. CBC, Coag panel, CMP significant for BUN 28, Cr 1.33, glu 106. Lactic acid 1.2. Troponin < 0.012. EKG sinus rhythm with RBBB and L anterior fascicular block. UDS + oxycodone, TCA. Serum EtOH < 10. CT brain, C-spine, face showed small forehead contusion, moderate DJD, grade 1 anterolisthesis C4 on C5, C7 on T1. CT chest/abd/pelvis showed healing 7th and 8th rib fracture, healing L1 and L2 transverse process fracture, moderate COPD with bibasilar at electasis/consolidation. She was loaded with Keppra and intubated in the ED to protect her airway. EEG was negative and Keppra was weaned off. Extubated on 09/19. Multiple CT head was performed and negative for acute pathology. She had increased episodes of confusion, Psych was consulted, attributed to delirium. She was noted to be bradycardic with HR in the 20s on 09/20, started on Dopamine drip, Cardiology consulted and underwent TVP. 09/23 Patient was seen and examined. Mentation significantly improved. reports patient back to baseline. She actually remembers the events leading up to the intubation. TVP discontinued by Cardiology. General: NAD Derm: warm, dry Head: atraumatic, normocephalic, symmetric, contusion forehead Eyes: no lid lag, anicteric sclera, pinpoint R pupil, aphakia L eye Mouth: no lip lesion, mucus membranes moist Cardiovascular: S1S2 reg, no murmur Lungs: Decreased BS bilateral, no rhonchi, no rales Ext: no gross muscle atrophy, no edema, no contractures Neuro: No FND Psych: AO x 3 Based on my assessment of this patient, this patient meets a high complexity level of care. Sinus bradycardia: Status post TVP by Cardiology 09/20. TVP discontinued 09/22. Avoid AV katerin blockers. Acute metabolic encephalopathy: CVA versus concussion versus seizure versus cardiac cause. Also polypharmacy (patient has been on the same medication for years). Restart Tegretol, Fentanyl, Gabapentin, and Seroquel. Carbamazepine level 13.8. ACS ruled out. Echo as above. Telemetry monitoring. Seizure and Fall precautions. Advanced neurochecks. Accuchecks Q6H. MRI brain to be done tomorrow. Neurology on board. Delirium: Seroquel dose adjusted to 50 mg PO QD and 75 mg PO QHS. Restart Tegretol, Fentanyl, Gabapentin. Frequent re-direction. Window side bed. Psych on board. Acute hypoxic respiratory failure secondary to above Bipolar disorder: Tegetrol and Seroquel as above. HTN: Hold Lisinopril. DM: Accuchecks Q6H. Hypothyroid: Synthroid 150 mcg PO QD. h/o CVA/TIA: Plavix 75 mg PO QD. Crestor 40 mg PO QD. Resolved: JEAN Her changes in mentation seems to be related to her bradycardia. She has had no episodes of bradycardia and TVP was discontinued by Cardiology 09/22. Plans for MRI brain tomorrow. Will need PT and OT evaluation. Anticipate discharge in 1-2 days if she continues to improve. CODE STATUS: FULL CODE DVT Prophylaxis: Heparin SQ GI Prophylaxis: Protonix PO Designated medical POA if patient is not able to make medical decisions for themselves: . I have reviewed the following toy consultant notes: Pulmonary note. I have reviewed the results of the following tests: I have ordered the following tests: MRI brain pending. I have discussed the care of this patient with the following independent historian: Family. I have independently interpreted the following test below: I have discussed the management of this patient with the following physician: Objective - Vital Signs Vital signs: Vital Signs Temp 98.2 F 09/23/24 12:00 Pulse 69 09/23/24 12:00 Resp 18 09/23/24 12:00 BP 136/65 09/23/24 12:00 Pulse Ox 99 09/23/24 12:00 FiO2 40 09/19/24 09:31 Intake & Output 09/22/24 09/23/24 09/23/24 18:59 06:59 18:59 Intake Total 1230 1140 220 Output Total 510 450 500 Balance 720 690 -280 Intake: IV 750 600 100 0.9 KVO (Sheath) 200 Dextrose 5%-0.9% NaCl 1, 550 600 100 000 ml @ 50 mls/hr IV . Q20H [facility] Rx#:[id number] Oral 480 540 120 Output: Urine 510 450 500 Other: Voiding Method Indwelling Catheter Toilet # Bowel Movements 1 1 1 - Labs CBC & Chem 7: 09/22/24 09:45 09/22/24 09:45 Labs: Abnormal Lab Results - Last 24 Hours (Table) 09/22/24 09/22/24 Range/Units 16:30 19:51 POC Glucose (mg/dL) 115 H 132 H (70-110) mg/dL
[2024-09-23 15:56] LABS: Glucose,Whole Blood 116 mg/dL (70-110)
[2024-09-23] MEDS: hydrALAZINE HCL 25 MG TAB PO STA (20:38)
[2024-09-23 21:04] LABS: Glucose,Whole Blood 84 mg/dL (70-110)
[2024-09-24 06:25] LABS: Glucose,Whole Blood 83 mg/dL (70-110)
--- NOTE | 2024-09-24 08:23 | P.PN ---
Subjective Progress Note Date: 09/24/24 Principal diagnosis: Fall with altered mental status emmanuel Cordova 69 year old F with of Bipolar disorder, hypertension, diabetes mellitus, hypothyroidism, history of CVA/TIA, hyperlipidemia presents with altered mental status. Per report in chart, she was last seen normal at 5AM, sleeping comfortably when the left for work. When her leak operator paraffin plant came around noon, she noticed the kitchen was a mess and the patient was laying on the couch, unresponsive, with a bruise on her forehead. EMS was called. While in ER she began to have hypoxic respiratory distress and was subsequently intubated and began on propofol. Initial lab findings were unremarkable bedside BUN 28, Cr 1.33, glu 106. Lactic acid 1.2. Troponin < 0.012. EKG sinus rhythm with no ST elevations depression or T wave abnormalities, RBBB pattern. UDS was positive for oxycodone and TCA carbamazepine elevated 13.8, otherwise unremarkable. Today patient was seen in the ICU and was initially intubated and sedated on propofol. ABG 183/44/7.36. Weaning parameters were assessed and decision was made to extubate. Patient is now on nasal cannula 4 L. IV normal saline at 50 ml/hr. Chest x-ray with no acute process. CT head and neck with some degenerative disc disease but otherwise no acute intracranial process or fracture. CT chest with no acute process however revealed several healing rib fractures and with minimal bibasilar atelectasis. Today's labs WBC 7.4, hemoglobin 10.6, sodium 139, potassium 4.3, bicarb 19, BUN 25, creatinine 0.74. Patient continues to be lethargic but is otherwise in stable condition. She will continue to be monitored in the ICU. Patient seen and examined 09/20/2024 in the ICU. Yesterday patient was downgraded from the ICU, and overnight became bradycardic and began dopamine infusion per cardiology recommendations and decision was made to return to the ICU. Also her metabolic encephalopathy has worsened since yesterday she is now A+O x 1. Today, she is saturating well on room air, however remains bradycardic in the mid 30s to mid 50s pulse. Cardiology was notified and will see patient. Current IV lines are dopamine 5 mcg/kg/min and D5 with 0.9 normal saline at 50 mL/h. Today's labs WBC 9.0, hemoglobin 12.3, sodium 142, potassium 3.9, bicarb 22, BUN 22 unremarkable. Echocardiogram showed normal left ventricular function and EEG showed abnormal slowing. Due to bradycardia she is currently too unstable to proceed with MRI of brain at this time. We will continue to monitor in the ICU, prognosis is guarded. Patient seen and examined on 09/21/2024 in the ICU. Yesterday patient seen by cardiology and it was decided that temporary venous pacemaker would be placed, which was done without complications. Today her mentation seems to be improving slowly, A+O x 2. She is on room air. Current IV lines are dopamine 5 mcg/kg/minute, D5W NS 50 mL/h, NS at 20 mL/h. Home Seroquel 50 mg 4 times daily, gabapentin, Tegretol, fentanyl patch was restarted. Labs today WBC 9.0, hemoglobin 12.3, sodium 142, potassium 3.9, bicarb 22, BUN 22, creatinine 0.60 troponin 0.024. Awaiting procalcitonin. Sputum culture Klebsiella oxytoca. Bilateral knee x-ray without fracture. Repeat CT head impression with no acute process. Remains too unstable for MRI of brain. She will continue to be monitored in the ICU. Patient seen and examined on 09/22/2024 in the ICU. Temporary venous pacemaker to be removed by cardiology likely to be discontinued if no further significant bradycardia while off dopamine for 24 hours. Today patient's mentation is A+O x 2, however she became acutely agitated this morning and was given Haldol 5 mg. She was also seen by psychiatry who suggested reorientation and avoid use of narcotics and SENIOR AUTOMATION ENGINEER sedatives and limit anticholinergic medication, change Seroquel 50 daily and 75 mg nightly. She is on room air. Current IV lines are D5W NS 50 mL/h, NS at 20 mL/h. Labs today are still pending. Procalcitonin 0.04. She will continue to be monitored in the ICU The patient was seen September 23, 2024 She is sitting in a chair next to her hospital bed. She is currently on room air. The patient is getting dextrose with normal saline at 50 cc an hour. The IV can be discontinued. The patient is eating and drinking. In addition, the patient could be transferred out to the cardiology floor. No new labs today other than a glucose of 77. Today 09/24/24, pt. was seen by Neurology. She feels well and denies pain. She had an episode of hypertension (SBP ~ 170) last night and was given Hydralazine with improvement, but denied symptoms at that time. She notes she has a rolling walker at home, and has fallen several times in the past year. She exhibits mildly pressured speech. Vital Signs - 24 hr 09/23/24 09/23/24 09/23/24 11:14 11:22 12:00 Temperature 98.2 F Pulse Rate 62 58 L Pulse Rate [ 69 Investment Recovery Technician ] Respiratory 18 Rate Blood Pressure 136/65 [Left Arm] O2 Sat by Pulse 99 Oximetry 09/23/24 09/23/24 09/23/24 15:21 15:30 16:00 Temperature 98 F Pulse Rate 68 62 Pulse Rate [ 82 Investment Recovery Technician ] Respiratory 18 Rate Blood Pressure 130/51 [Left Arm] O2 Sat by Pulse 98 Oximetry 09/23/24 09/23/24 09/23/24 19:49 20:54 21:06 Temperature 98.6 F Pulse Rate 53 L 58 L Pulse Rate [ 52 L Investment Recovery Technician ] Respiratory 14 Rate Blood Pressure 157/71 [Left Arm] O2 Sat by Pulse 97 Oximetry 09/24/24 09/24/24 09/24/24 00:00 04:00 07:44 Temperature 97.9 F 98.2 F Pulse Rate 66 Pulse Rate [ 58 L 74 Investment Recovery Technician ] Respiratory 14 12 Rate Blood Pressure 120/47 124/53 [Left Arm] O2 Sat by Pulse 98 99 Oximetry 09/24/24 07:53 Temperature Pulse Rate 72 Pulse Rate [ Investment Recovery Technician ] Respiratory Rate Blood Pressure [Left Arm] O2 Sat by Pulse Oximetry Laboratory Results - Last 24 Hours 09/23/24 09/23/24 09/23/24 11:23 15:55 21:03 POC Glucose (mg/dL) 95 116 H 84 POC Glu Bedspread Cutter Hand ID Selvin Pizano 09/24/24 06:23 POC Glucose (mg/dL) 83 POC Glu Bedspread Cutter Hand ID Chirag Pizano Exam: Pt was A & o x3, with mildly pressurred speech. Cranial nerves II-XII were intact (she is blind in the left eye), with 5/5 strength in arms/legs, and no sensory deficit. No coordination or reflex abnormalities or asymmetries. Conclusion: Fall at home, found unresponsive with forehead bruise. CT head without abnormality, EEG with moderate slowing, CT cervical spine negative. wihth moderate multilevel DJD. 1. Pending MRI Brain today. 2. PT consult for balance. Pt. has rolling walker at home. 3. Possibly d/c tomorrow if MRI nl and PT clears her for balance. Fernando Perry MD Neurology [facility]. Objective - Vital Signs Vital signs: Vital Signs Temp 98.2 F 09/24/24 04:00 Pulse 72 09/24/24 07:53 Resp 12 09/24/24 04:00 BP 124/53 09/24/24 04:00 Pulse Ox 99 09/24/24 04:00 FiO2 40 09/19/24 09:31 Intake & Output 09/23/24 09/24/24 09/24/24 18:59 06:59 18:59 Intake Total 460 Output Total 500 350 Balance -40 -350 Weight 63.503 kg Intake: IV 100 Dextrose 5%-0.9% NaCl 1, 100 000 ml @ 50 mls/hr IV . Q20H [facility] Rx#:[id number] Oral 360 Output: Urine 500 350 Other: Voiding Method Toilet # Voids 1 1 # Bowel Movements 1 - Labs CBC & Chem 7: 09/22/24 09:45 09/22/24 09:45 Labs: Abnormal Lab Results - Last 24 Hours (Table) 09/23/24 Range/Units 15:55 POC Glucose (mg/dL) 116 H (70-110) mg/dL
--- NOTE | 2024-09-24 09:00 | P.PN ---
Subjective Progress Note Date: 09/24/24 Principal diagnosis: 69 year old F with PMH of Bipolar disorder, HTN, DM, HTN, Hypothyroid, h/o CVA/TIA, HLD presents to the ED for altered mentation. She is currently intubated and history is obtained from the . She was last seen normal at 5AM, sleeping comfortably when the left for work. When her cuff runner came around noon, she noticed the kitchen was a mess and the patient was laying on the couch, unresponsive, with a bruise on her forehead. EMS was called. In the ED BP 146/67, HR 60, RR 7, 100% on BVM. She was given narcan with minimal improvement. CBC, Coag panel, CMP significant for BUN 28, Cr 1.33, glu 106. Lactic acid 1.2. Troponin < 0.012. EKG sinus rhythm with RBBB and L anterior fascicular block. UDS + oxycodone, TCA. Serum EtOH < 10. CT brain, C-spine, face showed small forehead contusion, moderate DJD, grade 1 anterolisthesis C4 on C5, C7 on T1. CT chest/abd/pelvis showed healing 7th and 8th rib fracture, healing L1 and L2 transverse process fracture, moderate COPD with bibasilar atelectasis/consolidation. She was loaded with Keppra and intubated in the ED to protect her airway. EEG was negative and Keppra was weaned off. Extubated on 09/19. Multiple CT head was performed and negative for acute pathology. She had increased episodes of confusion, Psych was consulted, attributed to delirium. She was noted to be bradycardic with HR in the 20s on 09/20, started on Dopamine drip, Cardiology consulted and underwent TVP. which was later d/terri on 09/22. 09/24: awaiting MRI brain. Discussed with RN who had reported screening form was sent this am. Objective - Vital Signs Vital signs: Vital Signs Temp 98.3 F 09/24/24 08:00 Pulse 85 09/24/24 08:00 Resp 20 09/24/24 08:00 BP 122/72 09/24/24 08:00 Pulse Ox 97 09/24/24 08:00 FiO2 40 09/19/24 09:31 Intake & Output 09/23/24 09/24/2424 18:59 06:59 18:59 Intake Total 460 Output Total 500 350 Balance -40 -350 Weight 63.503 kg Intake: IV 100 Dextrose 5%-0.9% NaCl 1, 100 000 ml @ 50 mls/hr IV . Q20H [facility] Rx#:[id number] Oral 360 Output: Urine 500 350 Other: Voiding Method Toilet # Voids 1 1 # Bowel Movements 1 - Exam General: NAD, female appears stated age. pleasamt Derm: warm, dry Head: atraumatic, normocephalic, symmetric, contusion forehead Eyes: no lid lag, anicteric sclera, Mouth: no lip lesion, mucus membranes moist Cardiovascular: S1S2 reg, no murmur Lungs: ctab, n owheezing on room air Ext: no gross muscle atrophy, no edema, no contractures Neuro: moving all extremeties spontanously Psych: calm and cooperative - Labs CBC & Chem 7: 09/22/24 09:45 09/22/24 09:45 Labs: Abnormal Lab Results - Last 24 Hours (Table) 09/23/24 Range/Units 15:55 POC Glucose (mg/dL) 116 H (70-110) mg/dL Assessment and Plan Assessment: Sinus bradycardia: Status post TVP by Cardiology 09/20. TVP discontinued 09/22. Avoid AV katerin blockers. Continued telemetry monitring Acute metabolic encephalopathy: CVA versus concussion versus seizure versus cardiac cause. Also polypharmacy (patient has been on the same medication for ye ars). Continue Tegretol, Fentanyl, Gabapentin, and Seroquel. Carbamazepine level 13.8. ACS ruled out. Echo as above. \Seizure and Fall precautions. Advanced neurochecks. Accuchecks Q6H. Awaiting MRI brain to r/o cva as cause of encepahloapthy Delirium: Seroquel dose adjusted to 50 mg PO QD and 75 mg PO QHS. Continue Tegretol, Fentanyl, Gabapentin. Acute hypoxic respiratory failure secondary to above, resolved Bipolar disorder: Tegetrol and Seroquel as above. HTN: Hold Lisinopril given borderline bp DM: Accuchecks Q6H. Hypothyroid: Synthroid 150 mcg PO QD. h/o CVA/TIA: Plavix 75 mg PO QD. Crestor 40 mg PO QD. Acute kidney injury, resolved CODE STATUS: FULL CODE DVT Prophylaxis: Heparin SQ GI Prophylaxis: Protonix PO Designated medical POA if patient is not able to make medical decisions for themselves: . Disposition: anticipate discharge home on 09/25 after MRI brain performed and results reviewed Time with Patient: Greater than 30
[2024-09-24 09:53] LABS: African American GFR (CKD) >90 (>60 ml/min/1.73 sqM); Anion Gap 6 mmol/L; Blood Urea Nitrogen 11 mg/dL (7-17); Carbon Dioxide 25 mmol/L (22-30); Chloride 112 mmol/L (98-107); Glucose 107 mg/dL (74-99); Non-African American GFR(CKD) 81 (>60 ml/min/1.73 sqM); Potassium 3.7 mmol/L (3.5-5.1); Sodium 143 mmol/L (137-145)
[2024-09-24 11:41] LABS: Glucose,Whole Blood 86 mg/dL (70-110)
--- NOTE | 2024-09-24 13:00 | P.PN ---
Subjective Progress Note Date: 09/24/24 Yasmin Cordova 69 year old F with of Bipolar disorder, hypertension, diabetes mellitus, hypothyroidism, history of CVA/TIA, hyperlipidemia presents with altered mental status. Per report in chart, she was last seen normal at 5AM, sleeping comfortably when the left for work. When her microfilm clerk came around noon, she noticed the kitchen was a mess and the patient was laying on the couch, unresponsive, with a bruise on her forehead. EMS was called. While in ER she began to have hypoxic respiratory distress and was subsequently intubated and began on propofol. Initial lab findings were unremarkable bedside BUN 28, Cr 1.33, glu 106. Lactic acid 1.2. Troponin < 0.012. EKG sinus rhythm with no ST elevations depression or T wave abnormalities, RBBB pattern. UDS was positive for oxycodone and TCA carbamazepine elevated 13.8, otherwise unremarkable. Today patient was seen in the ICU and was initially intubated and sedated on propofol. ABG 183/44/7.36. Weaning parameters were assessed and decision was made to extubate. Patient is now on nasal cannula 4 L. IV normal saline at 50 ml/hr. Chest x-ray with no acute process. CT head and neck with some degenerative disc disease but otherwise no acute intracranial process or fracture. CT chest with no acute process however revealed several healing rib fractures and with minimal bibasilar atelectasis. Today's labs WBC 7.4, he moglobin 10.6, sodium 139, potassium 4.3, bicarb 19, BUN 25, creatinine 0.74. Patient continues to be lethargic but is otherwise in stable condition. She will continue to be monitored in the ICU. Patient seen and examined 09/20/2024 in the ICU. Yesterday patient was downgraded from the ICU, and overnight became bradycardic and began dopamine infusion per cardiology recommendations and decision was made to return to the ICU. Also her metabolic encephalopathy has worsened since yesterday she is now A+O x 1. Today, she is saturating well on room air, however remains bradycardic in the mid 30s to mid 50s pulse. Cardiology was notified and will see patient. Current IV lines are dopamine 5 mcg/kg/min and D5 with 0.9 normal saline at 50 mL/h. Today's labs WBC 9.0, hemoglobin 12.3, sodium 142, potassium 3.9, bicarb 22, BUN 22 unremarkable. Echocardiogram showed normal left ventricular function and EEG showed abnormal slowing. Due to bradycardia she is currently too unstable to proceed with MRI of brain at this time. We will continue to monitor in the ICU, prognosis is guarded. Patient seen and examined on 09/21/2024 in the ICU. Yesterday patient seen by cardiology and it was decided that temporary venous pacemaker would be placed, which was done without complications. Today her mentation seems to be improving slowly, A+O x 2. She is on room air. Current IV lines are dopamine 5 mcg/kg/minute, D5W NS 50 mL/h, NS at 20 mL/h. Home Seroquel 50 mg 4 times daily, gabapentin, Tegretol, fentanyl patch was restarted. Labs today WBC 9.0, hemoglobin 12.3, sodium 142, potassium 3.9, bicarb 22, BUN 22, creatinine 0.60 troponin 0.024. Awaiting procalcitonin. Sputum culture Klebsiella oxytoca. Bilateral knee x-ray without fracture. Repeat CT head impression with no acute process. Remains too unstable for MRI of brain. She will continue to be monitored in the ICU. Patient seen and examined on 09/22/2024 in the ICU. Temporary venous pacemaker to be removed by cardiology likely to be discontinued if no further significant bradycardia while off dopamine for 24 hours. Today patient's mentation is A+O x 2, however she became acutely agitated this morning and was given Haldol 5 mg. She was also seen by psychiatry who suggested reorientation and avoid use of narcotics and PHARM SPEC sedatives and limit anticholinergic medication, change Seroquel 50 daily and 75 mg nightly. She is on room air. Current IV lines are D5W NS 50 mL/h, NS at 20 mL/h. Labs today are still pending. Procalcitonin 0.04. She will continue to be monitored in the ICU. Progress note dated September 23, 2024. The patient is seen today in room 263. She is sitting in a chair next to her hospital bed. She is currently on room air. The patient is getting dextrose with normal saline at 50 cc an hour. The IV can be discontinued. The patient is eating and drinking. In addition, the patient could be transferred out to the cardiology floor. No new labs today other than a glucose of 77. Objective - Vital Signs Vital signs: Vital Signs Temp 98.6 F 09/24/24 12:00 Pulse 62 09/24/24 12:00 Resp 18 09/24/24 12:00 BP 131/53 09/24/24 12:00 Pulse Ox 98 09/24/24 12:00 FiO2 40 09/19/24 09:31 Intake & Output 09/23/24 09/24/24 09/24/24 18:59 06:59 18:59 Intake Total 460 Output Total 500 350 Balance -40 -350 Weight 63.503 kg Intake: IV 100 Dextrose 5%-0.9% NaCl 1, 100 000 ml @ 50 mls/hr IV . Q20H [facility] Rx#:[id number] Oral 360 Output: Urine 500 350 Other: Voiding Method Toilet Toilet # Voids 1 1 # Bowel Movements 1 - Exam GENERAL: Not in any acute distress. Well developed, well nourished. On room air HEENT: traumatic contusion R eyebrow, blind in left eye CARDIOVASCULAR: S1 and S2 present. No murmurs, rubs, or gallops. PULMONARY: Chest is clear to auscultation, no wheezing or crackles. ABDOMEN: Soft, nontender, nondistended, normoactive bowel sounds. No palpable organomegaly. MUSCULOSKELETAL: No joint swelling or deformity. EXTREMITIES: No cyanosis, clubbing, or pedal edema. NEUROLOGICAL: 5/5 strength upper and lower extremities PSYCH: The patient is alert and oriented x3 SKIN: contusion R eyebrow. No rashes. no petechiae. - Labs CBC & Chem 7: 09/22/24 09:45 09/24/24 09:21 Labs: Abnormal Lab Results - Last 24 Hours (Table) 09/23/24 09/24/24 Range/Units 15:55 09:21 Chloride 112 H (98-107) mmol/L Glucose 107 H (74-99) mg/dL POC Glucose (mg/dL) 116 H (70-110) mg/dL Assessment and Plan Assessment: Acute metabolic encephalopathy, may be secondary to antipsychotic medication withdrawal Acute hypoxic respiratory failure, extubated on 09/19/2024, resolved Sinus Bradycardia JEAN versus CKD, resolved Bipolar disorder Hypertension Diabetes mellitus Hypothyroidism History of CVA/TIA Plan: Plan dated September 24, 2024. She is to get brain MRI today. She is on room air. The patient is eating and drinking appropriately. Labs, x-rays, and all medications are reviewed. The patient is stable to be transferred to the 3 S, cardiology floor. We will continue to follow the patient. The patient continues with DVT and GI prophylaxis.
[2024-09-24 14:06] VITALS: BMI 24.7
--- NOTE | 2024-09-24 15:09 | P.PN ---
Subjective Progress Note Date: 09/24/24 Yasmin Cordova 69 year old F with of Bipolar disorder, hypertension, diabetes mellitus, hypothyroidism, history of CVA/TIA, hyperlipidemia presents with altered mental status. Per report in chart, she was last seen normal at 5AM, sleeping comfortably when the left for work. When her watch technician came around noon, she noticed the kitchen was a mess and the patient was laying on the couch, unresponsive, with a bruise on her forehead. EMS was called. While in ER she began to have hypoxic respiratory distress and was subsequently intubated and began on propofol. Initial lab findings were unremarkable bedside BUN 28, Cr 1.33, glu 106. Lactic acid 1.2. Troponin < 0.012. EKG sinus rhythm with no ST elevations depression or T wave abnormalities, RBBB pattern. UDS was positive for oxycodone and TCA carbamazepine elevated 13.8, otherwise unremarkable. Today patient was seen in the ICU and was initially intubated and sedated on propofol. ABG 183/44/7.36. Weaning parameters were assessed and decision was made to extubate. Patient is now on nasal cannula 4 L. IV normal saline at 50 ml/hr. Chest x-ray with no acute process. CT head and neck with some degenerative disc disease but otherwise no acute intracranial process or fracture. CT chest with no acute process however revealed several healing rib fractures and with minimal bibasilar atelectasis. Today's labs WBC 7.4, hemoglobin 10.6, sodium 139, potassium 4.3, bicarb 19, BUN 25, creatinine 0.74. Patient continues to be lethargic but is otherwise in stable condition. She will continue to be monitored in the ICU. Patient seen and examined 09/20/2024 in the ICU. Yesterday patient was downgraded from the ICU, and overnight became bradycardic and began dopamine infusion per cardiology recommendations and decision was made to return to the ICU. Also her metabolic encephalopathy has worsened since yesterday she is now A+O x 1. Today, she is saturating well on room air, however remains bradycardic in the mid 30s to mid 50s pulse. Cardiology was notified and will see patient. Current IV lines are dopamine 5 mcg/kg/min and D5 with 0.9 normal saline at 50 mL/h. Today's labs WBC 9.0, hemoglobin 12.3, sodium 142, potassium 3.9, bicarb 22, BUN 22 unremarkable. Echocardiogram showed normal left ventricular function and EEG showed abnormal slowing. Due to bradycardia she is currently too unstable to proceed with MRI of brain at this time. We will continue to monitor in the ICU, prognosis is guarded. Patient seen and examined on 09/21/2024 in the ICU. Yesterday patient seen by cardiology and it was decided that temporary venous pacemaker would be placed, which was done without complications. Today her mentation seems to be improving slowly, A+O x 2. She is on room air. Current IV lines are dopamine 5 mcg/kg/minute, D5W NS 50 mL/h, NS at 20 mL/h. Home Seroquel 50 mg 4 times daily, gabapentin, Tegretol, fentanyl patch was restarted. Labs today WBC 9.0, hemoglobin 12.3, sodium 142, potassium 3.9, bicarb 22, BUN 22, creatinine 0.60 troponin 0.024. Awaiting procalcitonin. Sputum culture Klebsiella oxytoca. Bilateral knee x-ray without fracture. Repeat CT head impression with no acute process. Remains too unstable for MRI of brain. She will continue to be monitored in the ICU. Patient seen and examined on 09/22/2024 in the ICU. Temporary venous pacemaker to be removed by cardiology likely to be discontinued if no further significant bradycardia while off dopamine for 24 hours. Today patient's mentation is A+O x 2, however she became acutely agitated this morning and was given Haldol 5 mg. She was also seen by psychiatry who suggested reorientation and avoid use of n arcotics and CUSTOMER EXPERIENCE CONSULTANT sedatives and limit anticholinergic medication, change Seroquel 50 daily and 75 mg nightly. She is on room air. Current IV lines are D5W NS 50 mL/h, NS at 20 mL/h. Labs today are still pending. Procalcitonin 0.04. She will continue to be monitored in the ICU. Progress note dated September 23, 2024. The patient is seen today in room 263. She is sitting in a chair next to her hospital bed. She is currently on room air. The patient is getting dextrose with normal saline at 50 cc an hour. The IV can be discontinued. The patient is eating and drinking. In addition, the patient could be transferred out to the cardiology floor. No new labs today other than a glucose of 77. On 09/24/2024, the patient is being seen for a follow-up. The patient is awake and alert. The patient is communicating. She is oriented to place and to herself. No agitation. No hemodynamic instability. The patient's cardiac rhythm is sinus and the patient's temporary pacemaker has been removed. Noted the patient was having episode of sinus bradycardia and her LV function shows normal ejection fraction of 50 to 55%, no segmental wall motion abnormalities. The patient is known to have mild nonobstructive coronary artery disease. She also has history of hypertension hyperlipidemia diabetes mellitus and bipolar disorder. On today's blood work, the sodium levels at 143, potassium is at 3.7, BUN is 11 with a creatinine of 0.7. Calcium level is at 9.0. No other significant events overnight. The patient remains on Seroquel 75 mg at bedtime and 50 mg in the morning. The patient is also on Duragesic patch and Percocet for pain control. She remains on Tegretol 200 mg 4 times daily. Xanax on an as-needed basis. Objective - Vital Signs Vital signs: Vital Signs Temp 98.3 F 09/24/24 08:00 Pulse 85 09/24/24 08:00 Resp 20 09/24/24 08:00 BP 122/72 09/24/24 08:00 Pulse Ox 97 09/24/24 08:00 FiO2 40 09/19/24 09:31 Intake & Output 09/23/24 09/24/24 09/24/24 18:59 06:59 18:59 Intake Total 460 Output Total 500 350 Balance -40 -350 Weight 63.503 kg Intake: IV 100 Dextrose 5%-0.9% NaCl 1, 100 000 ml @ 50 mls/hr IV . Q20H [facility] Rx#:[id number] Oral 360 Output: Urine 500 350 Other: Voiding Method Toilet Toilet # Voids 1 1 # Bowel Movements 1 - Exam No acute distress, oriented 3. On room air. HEENT examination is grossly unremarkable. Mucous membranes are moist. No oral lesions. Bruising and ecchymosis is noted to her forehead. Neck supple. Full range of motion. No adenopathy thyromegaly or neck vein distention. Cardiovascular examination reveals regular rhythm rate. S1-S2 normal. No S3 or S4. No discernible murmur noted. Lungs reveal clear breath sounds. Breath sounds are equal bilaterally. No adventitious lung sounds including wheezes rhonchi or crackles. Abdomen soft bowel sounds are heard. No masses or tenderness. Extremities are intact. No cyanosis clubbing or edema. Skin is without rash or lesion. Neurologic examination is brief but nonfocal. - Labs CBC & Chem 7: 09/22/24 09:45 09/24/24 09:21 Labs: Abnormal Lab Results - Last 24 Hours (Table) 09/23/24 09/24/24 Range/Units 15:55 09:21 Chloride 112 H (98-107) mmol/L Glucose 107 H (74-99) mg/dL POC Glucose (mg/dL) 116 H (70-110) mg/dL Assessment and Plan Plan: Acute metabolic encephalopathy, improved. Mental status is improved and the patient is calm and comfortable and her neurologic exam is nonfocal. Acute hypoxemic respiratory failure, s/p extubation on September 19, 2024, and the patient is currently on room air oxygen. Sinus bradycardia/sick sinus syndrome status post temporary pacemaker insertion and removal. Cardiac rhythm is sinus Acute kidney injury versus CKD, resolved. Bipolar disorder. History of hypertension. Diabetes mellitus. Hypothyroidism. History of CVA/TIA. Plan: Neurologically stable Respiratory status is stable and the patient is currently on room air oxygen Hemodynamically stable Electrolytes are within normal limits Continue Seroquel Continue Tegretol Duragesic patch and percocet Will transfer out of the ICU
[2024-09-24] MEDS: ALPRAZolam 0.25 MG TAB PO PRN (15:21)
[2024-09-24 17:11] LABS: Glucose,Whole Blood 59 mg/dL (70-110)
--- NOTE | 2024-09-24 17:27 | MR ---
INDICATION: Patient age:Female; 69 years old; Reason for study: encephalopathy unknown etiology; PHH. COMPARISON: CT brain 09/20/2024, 09/19/2024. TECHNIQUE: Multi planar, multi sequence imaging was performed through the brain. The patient was then given 6.5 cc of Gadavist intravenously and multi planar, T1 fat-saturation images were obtained. FINDINGS: The lopez-white junctions basal cisterns appear unremarkable. No hydrocephalus. There is a 6 mm T2/FLA IR hyperintense lesion emanates from the wall of the left lateral ventricle body (series 601, image 2 0). No corresponding enhancement on postcontrast imaging. Appears separate from the choroid plexus. A ge-appropriate supratentorial cerebral volume. There is diffuse mild cerebral volume loss of the cere bellum. Diffusion-weighted imaging shows no evidence of restricted diffusion to suggest acute/subacut e infarct. Intracranial arterial flow voids are maintained. Midline structures show no abnormality. C ouple of T2/FLAIR hyperintense foci within the periventricular and subcortical white matter. Largest is within the left parietal subcortical white matter measuring up to 4 mm (series 601, image 22). The susceptibility weighted images do not reveal any evidence for micro-hemorrhage. After administration of gadolinium, no abnormal enhancement is seen. The bone marrow signal is within normal limits. The paranasal sinuses and globes are unremarkable. IMPRESSION: 1. No evidence of acute/subacute infarct or abnormal enhancement. 2. Intraventricular 6 mm T2/FLAIR hyperintense lesion within the left lateral ventricle body without evidence of enhancement. No hydrocephalus. Etiologies include subependymoma versus other etiologies s uch as inflammatory nodule. 3. Couple of small nonspecific white matter changes, likely related to small vessel ischemic disease versus other etiologies. [facility], , 09/24/2024 5:25 PM
[2024-09-24 17:29] LABS: Glucose,Whole Blood 93 mg/dL (70-110)
[2024-09-24 18:47] LABS: Glucose,Whole Blood 164 mg/dL (70-110)
[2024-09-24 23:28] LABS: Glucose,Whole Blood 105 mg/dL (70-110)
[2024-09-25 04:38] VITALS: RESP 16
[2024-09-25 06:39] LABS: Glucose,Whole Blood 79 mg/dL (70-110)
--- NOTE | 2024-09-25 08:02 | P.PN ---
Subjective Progress Note Date: 09/25/24 Principal diagnosis: Fall with subsequent Altered Mental Status Fall with altered mental status emmanuel Cordova 69 year old F with of Bipolar disorder, hypertension, diabetes mellitus, hypothyroidism, history of CVA/TIA, hyperlipidemia presents with altered mental status. Per report in chart, she was last seen normal at 5AM, sleeping comfortably when the left for work. When her administrative secretary came around noon, she noticed the kitchen was a mess and the patient was laying on the couch, unresponsive, with a bruise on her forehead. EMS was called. While in ER she began to have hypoxic respiratory distress and was subsequently intubated and began on propofol. Initial lab findings were unremarkable bedside BUN 28, Cr 1.33, glu 106. Lactic acid 1.2. Troponin < 0.012. EKG sinus rhythm with no ST elevations depression or T wave abnormalities, RBBB pattern. UDS was positive for oxycodone and TCA carbamazepine elevated 13.8, otherwise unremarkable. Today patient was seen in the ICU and was initially intubated and sedated on propofol. ABG 183/44/7.36. Weaning parameters were assessed and decision was made to extubate. Patient is now on nasal cannula 4 L. IV normal saline at 50 ml/hr. Chest x-ray with no acute process. CT head and neck with some degenerative disc disease but otherwise no acute intracranial process or fracture. CT chest with no acute process however revealed several healing rib fractures and with minimal bibasilar atelectasis. Today's labs WBC 7.4, hemoglobin 10.6, sodium 139, potassium 4.3, bicarb 19, BUN 25, creatinine 0.74. Patient continues to be lethargic but is otherwise in stable condition. She will continue to be monitored in the ICU. Patient seen and examined 09/20/2024 in the ICU. Yesterday patient was downg raded from the ICU, and overnight became bradycardic and began dopamine infusion per cardiology recommendations and decision was made to return to the ICU. Also her metabolic encephalopathy has worsened since yesterday she is now A+O x 1. Today, she is saturating well on room air, however remains bradycardic in the mid 30s to mid 50s pulse. Cardiology was notified and will see patient. Current IV lines are dopamine 5 mcg/kg/min and D5 with 0.9 normal saline at 50 mL/h. Today's labs WBC 9.0, hemoglobin 12.3, sodium 142, potassium 3.9, bicarb 22, BUN 22 unremarkable. Echocardiogram showed normal left ventricular function and EEG showed abnormal slowing. Due to bradycardia she is currently too unstable to proceed with MRI of brain at this time. We will continue to monitor in the ICU, prognosis is guarded. Patient seen and examined on 09/21/2024 in the ICU. Yesterday patient seen by cardiology and it was decided that temporary venous pacemaker would be placed, which was done without complications. Today her mentation seems to be improving slowly, A+O x 2. She is on room air. Current IV lines are dopamine 5 mcg/kg/minute, D5W NS 50 mL/h, NS at 20 mL/h. Home Seroquel 50 mg 4 times daily, gabapentin, Tegretol, fentanyl patch was restarted. Labs today WBC 9.0, hemoglobin 12.3, sodium 142, potassium 3.9, bicarb 22, BUN 22, creatinine 0.60 troponin 0.024. Awaiting procalcitonin. Sputum culture Klebsiella oxytoca. Bilateral knee x-ray without fracture. Repeat CT head impression with no acute process. Remains too unstable for MRI of brain. She will continue to be m onitored in the ICU. Patient seen and examined on 09/22/2024 in the ICU. Temporary venous pacemaker to be removed by cardiology likely to be discontinued if no further significant bradycardia while off dopamine for 24 hours. Today patient's mentation is A+O x 2, however she became acutely agitated this morning and was given Haldol 5 mg. She was also seen by psychiatry who suggested reorientation and avoid use of narcotics and RESAW OPERATOR sedatives and limit anticholinergic medication, change Seroque l 50 daily and 75 mg nightly. She is on room air. Current IV lines are D5W NS 50 mL/h, NS at 20 mL/h. Labs today are still pending. Procalcitonin 0.04. She will continue to be monitored in the ICU The patient was seen September 23, 2024 She is sitting in a chair next to her hospital bed. She is currently on room air. The patient is getting dextrose with normal saline at 50 cc an hour. The IV can be discontinued. The patient is eating and drinking. In addition, the patient could be transferred out to the cardiology floor. No new labs today other than a glucose of 77. 09/24/24, pt. was seen by Neurology. She feels well and denies pain. She had an episode of hypertension (SBP ~ 170) last night and was given Hydralazine with improvement, but denied symptoms at that time. She notes she has a rolling walker at home, and has fallen several times in the past year. She exhibits mildly pressured speech. She was seen today by Neurology. She is ambulaing with a rolling walker, and fee ls back to her baseline. She notes she has home PT as well as a walker and denies headache at this time. Neuro exam was nonfocal. 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 Conclusion: Fall with altered mental status, now cleared. Plan: 1. Pt. is cleared for discharge by Neorology.2. Continue carbamazepine for bipolar disorder. 2. EEG 09/19 was not suspicious for seizure activity. 3. Neuro will sign off for now. Please call if needed. Fernando Perry MD [facility] Objective - Vital Signs Vital signs: Vital Signs Temp 98.0 F 09/25/24 04:00 Pulse 56 L 09/25/24 04:00 Resp 16 09/25/24 04:00 BP 136/74 09/25/24 04:00 Pulse Ox 95 09/25/24 04:00 FiO2 40 09/19/24 09:31 Intake & Output 09/24/24 09/25/24 09/25/24 18:59 06:59 18:59 Intake Total 450 Output Total 400 300 Balance -400 150 Weight 63.503 kg Intake: Oral 450 Output: Urine 400 300 Other: Voiding Method Toilet Toilet # Voids 2 1 # Bowel Movements 1 0 - Labs CBC & Chem 7: 09/22/24 09:45 09/24/24 09:21 Labs: Abnormal Lab Results - Last 24 Hours (Table) 09/24/24 09/24/24 09/24/24 Range/Units 09:21 17:09 18:46 Chloride 112 H (98-107) mmol/L Glucose 107 H (74-99) mg/dL POC Glucose (mg/dL) 59 L 164 H (70-110) mg/dL
[2024-09-25 11:31] LABS: Glucose,Whole Blood 78 mg/dL (70-110)
[2024-09-25 11:50] VITALS: BP 153/65; PULSE 58; TEMP 98.8
--- NOTE | 2024-09-25 13:11 | P.PN ---
Subjective Progress Note Date: 09/25/24 Yasmin Cordova 69 year old F with of Bipolar disorder, hypertension, diabetes mellitus, hypothyroidism, history of CVA/TIA, hyperlipidemia presents with altered mental status. Per report in chart, she was last seen normal at 5AM, sleeping comfortably when the left for work. When her compounding technician came around noon, she noticed the kitchen was a mess and the patient was laying on the couch, unresponsive, with a bruise on her forehead. EMS was called. While in ER she began to have hypoxic respiratory distress and was subsequently intubated and began on propofol. Initial lab findings were unremarkable bedside BUN 28, Cr 1.33, glu 106. Lactic acid 1.2. Troponin < 0.012. EKG sinus rhythm with no ST elevations depression or T wave abnormalities, RBBB pattern. UDS was positive for oxycodone and TCA carbamazepine elevated 13.8, otherwise unremarkable. Today patient was seen in the ICU and was initially intubated and sedated on propofol. ABG 183/44/7.36. Weaning parameters were assessed and decision was made to extubate. Patient is now on nasal cannula 4 L. IV normal saline at 50 ml/hr. Chest x-ray with no acute process. CT head and neck with some degenerative disc disease but otherwise no acute intracranial process or fracture. CT chest with no acute process however revealed several healing rib fractures and with minimal bibasilar atelectasis. Today's labs WBC 7.4, hemoglobin 10.6, sodium 139, potassium 4.3, bicarb 19, BUN 25, creatinine 0.74. Patient continues to be lethargic but is otherwise in stable condition. She will continue to be monitored in the ICU. Patient seen and examined 09/20/2024 in the ICU. Yesterday patient was downgraded from the ICU, and overnight became bradycardic and began dopamine infusion per cardiology recommendations and decision was made to return to the ICU. Also her metabolic encephalopathy has worsened since yesterday she is now A+O x 1. Today, she is saturating well on room air, however remains bradycardic in the mid 30s to mid 50s pulse. Cardiology was notified and will see patient. Current IV lines are dopamine 5 mcg/kg/min and D5 with 0.9 normal saline at 50 mL/h. Today's labs WBC 9.0, hemoglobin 12.3, sodium 142, potassium 3.9, bicarb 22, BUN 22 unremarkable. Echocardiogram showed normal left ventricular function and EEG showed abnormal slowing. Due to bradycardia she is currently too unstable to proceed with MRI of brain at this time. We will continue to monitor in the ICU, prognosis is guarded. Patient seen and examined on 09/21/2024 in the ICU. Yesterday patient seen by cardiology and it was decided that temporary venous pacemaker would be placed, which was done without complications. Today her mentation seems to be improving slowly, A+O x 2. She is on room air. Current IV lines are dopamine 5 mcg/kg/minute, D5W NS 50 mL/h, NS at 20 mL/h. Home Seroquel 50 mg 4 times daily, gabapentin, Tegretol, fentanyl patch was restarted. Labs today WBC 9.0, hemoglobin 12.3, sodium 142, potassium 3.9, bicarb 22, BUN 22, creatinine 0.60 troponin 0.024. Awaiting procalcitonin. Sputum culture Klebsiella oxytoca. Bilateral knee x-ray without fracture. Repeat CT head impression with no acute process. Remains too unstable for MRI of brain. She will continue to be monitored in the ICU. Patient seen and examined on 09/22/2024 in the ICU. Temporary venous pacemaker to be removed by cardiology likely to be discontinued if no further significant bradycardia while off dopamine for 24 hours. Today patient's mentation is A+O x 2, however she became acutely agitated this morning and was given Haldol 5 mg. She was also seen by psychiatry who suggested reorientation and avoid use of n arcotics and FURNACE KEEPER sedatives and limit anticholinergic medication, change Seroquel 50 daily and 75 mg nightly. She is on room air. Current IV lines are D5W NS 50 mL/h, NS at 20 mL/h. Labs today are still pending. Procalcitonin 0.04. She will continue to be monitored in the ICU. Progress note dated September 23, 2024. The patient is seen today in room 263. She is sitting in a chair next to her hospital bed. She is currently on room air. The patient is getting dextrose with normal saline at 50 cc an hour. The IV can be discontinued. The patient is eating and drinking. In addition, the patient could be transferred out to the cardiology floor. No new labs today other than a glucose of 77. On 09/24/2024, the patient is being seen for a follow-up. The patient is awake and alert. The patient is communicating. She is oriented to place and to herself. No agitation. No hemodynamic instability. The patient's cardiac rhythm is sinus and the patient's temporary pacemaker has been removed. Noted the patient was having episode of sinus bradycardia and her LV function shows normal ejection fraction of 50 to 55%, no segmental wall motion abnormalities. The patient is known to have mild nonobstructive coronary artery disease. She also has history of hypertension hyperlipidemia diabetes mellitus and bipolar disorder. On today's blood work, the sodium levels at 143, potassium is at 3.7, BUN is 11 with a creatinine of 0.7. Calcium level is at 9.0. No other significant events overnight. The patient remains on Seroquel 75 mg at bedtime and 50 mg in the morning. The patient is also on Duragesic patch and Percocet for pain control. She remains on Tegretol 200 mg 4 times daily. Xanax on an as-needed basis. On 09/25/2024, the patient is being seen for a follow-up. No new complaints. Awake and alert and communicating. MRI of the brain was also performed yesterday and it showed no acute abnormalities. There was no evidence of any acute CVA. There was a intraventricular 6 mm hyperintense lesion within the left lateral ventricle without evidence of any enhancement. A subependymoma is being considered. There was also evidence of small nonspecific white matter changes related to chronic small vessel ischemia. Patient is currently on room air oxygen. Hemodynamically stable. No respiratory distress. No new labs from today. Awaiting to be discharged home today. The patient was also seen by neurology. The patient was cleared from the neurologic standpoint. The patient will be kept on carbamazepine for bipolar disorder. EEG showed no seizure activ ity. Objective - Vital Signs Vital signs: Vital Signs Temp 98.0 F 09/25/24 04:00 Pulse 60 09/25/24 09:28 Resp 16 09/25/24 04:00 BP 136/74 09/25/24 04:00 Pulse Ox 95 09/25/24 04:00 FiO2 40 09/19/24 09:31 Intake & Output 09/24/24 09/25/2424 18:59 06:59 18:59 Intake Total 450 Output Total 400 300 Balance -400 150 Weight 63.503 kg Intake: Oral 450 Output: Urine 400 300 Other: Voiding Method Toilet Toilet # Voids 2 1 # Bowel Movements 1 0 - Exam No acute distress, oriented 3. On room air. HEENT examination is grossly unremarkable. Mucous membranes are moist. No oral lesions. Bruising and ecchymosis is noted to her forehead. Neck supple. Full range of motion. No adenopathy thyromegaly or neck vein distention. Cardiovascular examination reveals regular rhythm rate. S1-S2 normal. No S3 or S4. No discernible murmur noted. Lungs reveal clear breath sounds. Breath sounds are equal bilaterally. No adventitious lung sounds including wheezes rhonchi or crackles. Abdomen soft bowel sounds are heard. No masses or tenderness. Extremities are intact. No cyanosis clubbing or edema. Skin is without rash or lesion. Neurologic examination is brief but nonfocal. - Labs CBC & Chem 7: 09/22/24 09:45 09/24/24 09:21 Labs: Abnormal Lab Results - Last 24 Hours (Table) 09/24/24 09/24/24 Range/Units 17:09 18:46 POC Glucose (mg/dL) 59 L 164 H (70-110) mg/dL Assessment and Plan Plan: Acute metabolic encephalopathy, improved. Mental status is improved and the patient is calm and comfortable and her neurologic exam is nonfocal. Acute hypoxemic respiratory failure, s/p extubation on September 19, 2024, and the patient is currently on room air oxygen. Sinus bradycardia/sick sinus syndrome status post temporary pacemaker insertion and removal. Cardiac rhythm is sinus Acute kidney injury versus CKD, resolved. Bipolar disorder. History of hypertension. Diabetes mellitus. Hypothyroidism. History of CVA/TIA. Plan: Neurologically stable No evidence of any seizure activity MRI of the brain was noted and there is no significant abnormalities Respiratory status is stable and the patient is currently on room air oxygen Hemodynamically stable Electrolytes are within normal limits Continue Seroquel Continue Tegretol Duragesic patch and percocet the patient would likely be discharged home today.
--- NOTE | 2024-09-25 13:43 | P.DS ---
Providers Date of admission: 09/18/24 14:57 Attending physician: Jorge Hester MD Consults: 09/18/24 14:54 Consult Physician Routine Consulting Provider: Donovan Gutierrez Consult Reason/Comments: ICU Do you want consulting provider notified?: Yes Consult Physician Routine Consulting Provider: Lamont Gutierrez Consult Reason/Comments: ams Do you want consulting provider notified?: Yes 09/18/24 16:23 Consult Physician Routine Consulting Provider: Lmaont Gutierrez Consult Reason/Comments: Unresponsive Do you want consulting provider notified?: Yes 09/20/24 14:28 Consult Physician Stat Consulting Provider: Psychiatry - [facility] Consult Reason/Comments: akathesia Do you want consulting provider notified?: Already Contacted Primary care physician: Carlos A Gomez [facility] Hospital Course: [address] [address] DISCHARGE SUMMARY Patient Name: Yasmin Cordova Date of : 1955 Patient Status: Inpatient Attending Provider: Jorge Hester Date: 09/24/24 08:55 Initialization Date: 09/24/24 08:55 Hospital Course Progress Note Date: 09/24/24 Principal diagnosis: 69 year old F with PMH of Bipolar disorder, HTN, DM, HTN, Hypothyroid, h/o CVA/TIA, HLD presents to the ED for altered mentation. She is currently intubated and history is obtained from the . She was last seen normal at 5AM, sleeping comfortably when the left for work. When her manager cardiology came around noon, she noticed the kitchen was a mess and the patient was laying on the couch, unresponsive, with a bruise on her forehead. EMS was called. In the ED BP 146/67, HR 60, RR 7, 100% on BVM. She was given narcan with minimal improvement. CBC, Coag panel, CMP significant for BUN 28, Cr 1.33, glu 106. Lactic acid 1.2. Troponin < 0.012. EKG sinus rhythm with RBBB and L anterior fascicular block. UDS + oxycodone, TCA. Serum EtOH < 10. CT brain, C-spine, face showed small forehead contusion, moderate DJD, grade 1 anterolisthesis C4 on C5, C7 on T1. CT chest/abd/pelvis showed healing 7th and 8th rib fracture, healing L1 and L2 transverse process fracture, moderate COPD with bibasilar atelectasis/consolidation. She was loaded with Keppra and intubated in the ED to protect her airway. EEG was negative and Keppra was weaned off. Extubated on 09/19. Multiple CT head was performed and negative for acute pathology. She had increased episodes of confusion, Psych was consulted, attributed to delirium. She was noted to be bradycardic with HR in the 20s on 09/20, started on Dopamine drip, Cardiology consulted and underwent TVP. which was later d/terri on 09/22. 09/24: awaiting MRI brain. Discussed with RN who had reported screening form was sent this am. 09/25: Patient seen and examined at bedside, reviewed MRI results, showed a 6 mm lesion along the left side, she has no focal deficits Objective - Vital Signs Vital signs: Vital Signs Temp 98.3 F 09/24/24 08:00 Pulse 85 09/24/24 08:00 Resp 20 09/24/24 08:00 BP 122/72 09/24/24 08:00 Pulse Ox 97 09/24/24 08:00 FiO2 40 09/19/24 09:31 Intake & Output 09/23/24 09/24/24 09/24/24 18:59 06:59 18:59 Intake Total 460 Output Total 500 350 Balance -40 -350 Weight 63.503 kg Intake: IV 100 Dextrose 5%-0.9% NaCl 1, 100 000 ml @ 50 mls/hr IV . Q20H CHRISTIN Rx#:[id number] Oral 360 Output: Urine 500 350 Other: Voiding Method Toilet # Voids 1 1 # Bowel Movements 1 - Exam General: NAD, female appears stated age. pleasamt Derm: warm, dry Head: atraumatic, normocephalic, symmetric, contusion forehead Eyes: no lid lag, anicteric sclera, Mouth: no lip lesion, mucus membranes moist Cardiovascular: S1S2 reg, no murmur Lungs: ctab, n owheezing on room air Ext: no gross muscle atrophy, no edema, no contractures Neuro: moving all extremeties spontanously Psych: calm and cooperative - Labs CBC & Chem 7: 09/22/24 09:45 09/22/24 09:45 Labs: Abnormal Lab Results - Last 24 Hours (Table) 09/23/24 Range/Units 15:55 POC Glucose (mg/dL) 116 H (70-110) mg/dL Assessment and Plan Assessment: Acute stroke: 6 mm T2/FLAIR reported intense lesion within the left lateral ventricular body, no focal deficits noted on physical exam, awaiting for neurology clearance, PT OT evaluation today, possible discharge later in the day Sinus bradycardia: Status post TVP by Cardiology 09/20. TVP discontinued 09/22. Avoid AV katerin blockers. Continued telemetry monitoring. Infrequent episodes of bradycardia, usually asymptomatic, while sleeping, recovers appropriately. Will need follow-up with cardiology as an outpatient Acute metabolic encephalopathy: CVA versus concussion versus seizure versus cardiac cause. Also polypharmacy (patient has been on the same medication for years). Continue Tegretol, Fentanyl, Gabapentin, and Seroquel. Carbamazepine level 13.8. ACS ruled out. Echo as above. \Seizure and Fall precautions. Advanced neurochecks. Accuchecks Q6H. Awaiting MRI brain to r/o cva as cause of encepahloapthy Delirium: Seroquel dose adjusted to 50 mg PO QD and 75 mg PO QHS. Continue Tegretol, Fentanyl, Gabapentin. Acute hypoxic respiratory failure secondary to above, resolved Bipolar disorder: Tegetrol and Seroquel as above. HTN: Hold Lisinopril given borderline bp DM: Accuchecks Q6H. Hypothyroid: Synthroid 150 mcg PO QD. h/o CVA/TIA: Plavix 75 mg PO QD. Crestor 40 mg PO QD. Acute kidney injury, resolved CODE STATUS: FULL CODE DVT Prophylaxis: Heparin SQ GI Prophylaxis: Protonix PO Designated medical POA if patient is not able to make medical decisions for themselves: . Disposition: anticipate discharge home on 09/25 after MRI brain performed and results reviewed Time with Patient: Greater than 30 Objective - Vital Signs Vital signs: Vital Signs Temp 98.0 F 09/25/24 04:00 Pulse 60 09/25/24 09:28 Resp 16 09/25/24 04:00 BP 136/74 09/25/24 04:00 Pulse Ox 95 09/25/24 04:00 FiO2 40 09/19/24 09:31 Intake & Output 09/24/24 09/25/24 09/25/24 18:59 06:59 18:59 Intake Total 450 Output Total 400 300 Balance -400 150 Weight 63.503 kg Intake: Oral 450 Output: Urine 400 300 Other: Voiding Method Toilet Toilet # Voids 2 1 # Bowel Movements 1 0 - Labs CBC & Chem 7: 09/22/24 09:45 09/24/24 09:21 Labs: Abnormal Lab Results - Last 24 Hours (Table) 09/24/24 09/24/24 Range/Units 17:09 18:46 POC Glucose (mg/dL) 59 L 164 H (70-110) mg/dL Discussed with aluminum polisheraron from the standpoint to be discharged Patient did have a 6 mm lesion noted on the left lateral ventricular body Neurodeficits PT OT evaluate patient, prefer to go home now requiring RAIMUNDO placement Follow-up with primary care physician in 1 to 2 weeks Continue plavix Patient Condition at Discharge: Fair Plan - Discharge Summary New Discharge Prescriptions: New Ipratropium-Albuterol Nebulize [Duoneb 0.5 mg-3 mg/3 ml Soln] 3 ml INHALATION RT-QID #30 each QUEtiapine [SEROquel] 50 mg PO DAILY #30 tab Levothyroxine Sodium [Synthroid] 150 mcg PO 0630 #30 tab Atorvastatin [Lipitor] 80 mg PO DAILY #30 tab Montelukast [Singulair] 10 mg PO DAILY #30 tab Continue carBAMazepine [TEGretol] 200 mg PO QID Famotidine [Pepcid] 20 mg PO BID fentaNYL 25MCG/HR PATCH [Duragesic 25MCG/HR] 1 patch TRANSDERM Q72H Oxybutynin Xl [Ditropan XL] 5 mg PO DAILY Gabapentin [Neurontin] 300 mg PO TID Clopidogrel [Plavix] 75 mg PO DAILY Baclofen [Lioresal] 10 mg PO QID Cholecalciferol [Vitamin D3 (125 Mcg = 5000 Iu)] 125 mcg PO DAILY lisinopriL [Zestril] 10 mg PO DAILY Montelukast [Singulair] 10 mg PO DAILY Multivitamin/Iron/Folic Acid [Centrum Complete Multivit Tab] 1 tab PO DAILY Pantoprazole [Protonix] 40 mg PO DAILY QUEtiapine [SEROquel] 50 mg PO QID Discontinued oxyCODONE-APAP 10-325MG [Percocet 10-325 mg] 1 tab PO Q12H PRN PRN Reason: Pain Levothyroxine Sodium [Synthroid] 150 mcg PO DAILY Rosuvastatin Calcium [Crestor] 40 mg PO DAILY Discharge Medication List Famotidine [Pepcid] 20 mg PO BID 10/24/17 [History] Oxybutynin Xl [Ditropan XL] 5 mg PO DAILY 10/24/17 [History] carBAMazepine [TEGretol] 200 mg PO QID 10/24/17 [History] fentaNYL 25MCG/HR PATCH [Duragesic 25MCG/HR] 1 patch TRANSDERM Q72H 10/24/17 [History] Gabapentin [Neurontin] 300 mg PO TID 01/10/18 [History] Clopidogrel [Plavix] 75 mg PO DAILY 04/03/18 [History] Baclofen [Lioresal] 10 mg PO QID 09/18/24 [History] Cholecalciferol [Vitamin D3 (125 Mcg = 5000 Iu)] 125 mcg PO DAILY 09/18/24 [History] Montelukast [Singulair] 10 mg PO DAILY 09/18/24 [History] Multivitamin/Iron/Folic Acid [Centrum Complete Multivit Tab] 1 tab PO DAILY 09/18/24 [History] Pantoprazole [Protonix] 40 mg PO DAILY 09/18/24 [History] QUEtiapine [SEROquel] 50 mg PO QID 09/18/24 [History] lisinopriL [Zestril] 10 mg PO DAILY 09/18/24 [History] Atorvastatin [Lipitor] 80 mg PO DAILY #30 tab 09/25/24 [Rx] Ipratropium-Albuterol Nebulize [Duoneb 0.5 mg-3 mg/3 ml Soln] 3 ml INHALATION RT-QID #30 each 09/25/24 [Rx] Levothyroxine Sodium [Synthroid] 150 mcg PO 0630 #30 tab 09/25/24 [Rx] Montelukast [Singulair] 10 mg PO DAILY #30 tab 09/25/24 [Rx] QUEtiapine [SEROquel] 50 mg PO DAILY #30 tab 09/25/24 [Rx] Follow up Appointment(s)/Referral(s): Carlos A Gomez MD [Primary Care Provider] - 09/26/24 12:30 pm (Appointment with Nimisha.) JEB Visiting Nurse, [NON-STAFF] - 1-2 Days (will call to set up apointment any questions please call agnecy. ) Patient Instructions/Handouts: Hypoglycemia in a Person with Diabetes (DC), Ischemic Stroke (GEN), Bradycardia (DC) Discharge Disposition: HOME SELF-CARE Plan of Treatment: Continue outpatient physical therapy as you were before
== END 2024-09-25 12:40 | disposition home or self-care (01) | DRG 40 ==
LOC: SUPCPDRO 13:08 → EC 13:08 → 2SICU 14:57 → 4SSUR 09-19 21:19 → 2SICU 09-20 02:52
PROVIDERS: ADMIT Internal Medicine; ATTEND Internal Medicine
PROC: 5A1935Z Respiratory Ventilation, Less than 24 Consecutive Hours (ICD-10-PCS; principal; 2024-09-18)
PROC: 0BH17EZ Insertion of Endotracheal Airway into Trachea, Via Natural or Artificial Opening (ICD-10-PCS; 2024-09-18)
PROC: 5A1223Z Performance of Cardiac Pacing, Continuous (ICD-10-PCS; 2024-09-20)
PROC: 02PA3MZ Removal of Cardiac Lead from Heart, Percutaneous Approach (ICD-10-PCS; 2024-09-22)
DX: S06.0X9A Concussion with loss of consciousness of unspecified duration, initial encounter (principal); G93.41 Metabolic encephalopathy; J96.01 Acute respiratory failure with hypoxia; J98.11 Atelectasis; N17.9 Acute kidney failure, unspecified; I45.2 Bifascicular block; F05 Delirium due to known physiological condition; S00.83XA Contusion of other part of head, initial encounter; R40.2432 Glasgow coma scale score 3-8, at arrival to emergency department; I49.5 Sick sinus syndrome; J44.9 Chronic obstructive pulmonary disease, unspecified; I10 Essential (primary) hypertension; G89.29 Other chronic pain; M43.12 Spondylolisthesis, cervical region; N28.9 Disorder of kidney and ureter, unspecified; F31.9 Bipolar disorder, unspecified; E78.5 Hyperlipidemia, unspecified; E11.9 Type 2 diabetes mellitus without complications; E03.9 Hypothyroidism, unspecified; I25.10 Atherosclerotic heart disease of native coronary artery without angina pectoris; E05.90 Thyrotoxicosis, unspecified without thyrotoxic crisis or storm; H54.62 Unqualified visual loss, left eye, normal vision right eye; M47.812 Spondylosis without myelopathy or radiculopathy, cervical region; M47.813 Spondylosis without myelopathy or radiculopathy, cervicothoracic region; T50.915A Adverse effect of multiple unspecified drugs, medicaments and biological substances, initial encounter; S32.018D Other fracture of first lumbar vertebra, subsequent encounter for fracture with routine healing; S32.028D Other fracture of second lumbar vertebra, subsequent encounter for fracture with routine healing; S22.42XD Multiple fractures of ribs, left side, subsequent encounter for fracture with routine healing; W19.XXXA Unspecified fall, initial encounter; Y92.008 Other place in unspecified non-institutional (private) residence as the place of occurrence of the external cause; Y99.8 Other external cause status; Z91.81 History of falling; Z79.02 Long term (current) use of antithrombotics/antiplatelets; Z79.890 Hormone replacement therapy; Z79.899 Other long term (current) drug therapy; Z86.73 Personal history of transient ischemic attack (TIA), and cerebral infarction without residual deficits; Z90.710 Acquired absence of both cervix and uterus; Z96.641 Presence of right artificial hip joint; Z88.6 Allergy status to analgesic agent; Z88.5 Allergy status to narcotic agent; Z88.8 Allergy status to other drugs, medicaments and biological substances; Z82.49 Family history of ischemic heart disease and other diseases of the circulatory system
CPT/HCPCS: 31500; 33210; 36415; 36600; 51702; 70450; 70486; 70553; 71045; 71260; 72125; 72129; 72132; 72170; 74177; 80048; 80053; 80156; 80306; 80320; 81003; 82140; 82607; 82746; 82805; 83605; 83735; 84100; 84145; 84439; 84443; 84484; 85025; 85027; 85610; 85730; 86850; 86900; 86901; 87070; 87077; 87186; 87205; 93005; 93306; 94002; 94003; 94640; 94760; 95822; 96361; 96374; 96375; 99291